=== PATIENT | male | born 1995 | race Caucasian/White ===

== ENCOUNTER 2021-10-25 12:26 | Emergency (ER) | payer SELFPAY ==
--- OUTSIDE RECORDS SUMMARY | 2021-10-25 12:29 | XMS REPORT | Continuity of Care Document ---
:[address] [facility] t Address [address] [place] [address] Care Team Providers Name Role Phone REMY Attending Clinician Unavailable EYAD Attending Clinician Unavailable Christ_Dimas Attending Clinician Unavailable EYAD Admitting Clinician Unavailable Zara Admitting Clinician Unavailable Payers Payer Name Policy Type Policy Number Effective Date Expiration Date S [place] [id number] 2019 00:00:00 [place] Problems Condition Condition Condition Status Onset Resolution Last Treating Co mments Source Name Details Category Date Date Treatment Clinician Date Hypertensi Hypertensi Problem Active 2020-0 [facility] [place] [facility] ve 4-13 da disorder Disorder 00:00: Medica l 00 Group Duodenitis Duodenitis Problem Active 2020-0 [facility] [place] 4-13 da 00:00: Medical 00 Group Urinary Urinary Problem Active 2020-0 [place] T[place] 4-13 da infectious Infectious 00:00: Me dical disease Disease 00 Group Allergies, Adverse Reactions, Alerts This patient has no known allergies or adverse reactions. Social History Smoking Status Start Date Stop Date Source Former Smoker [facility] Medications Ordered Filled Start Stop Current Ordering Indication Dosage Frequency Signature Comments Components Source Medication Medication Date Date Medication? Clinician (SIG) Name Name metoprolol metoprolol No 1 BID metoprolol [place] tartrate 25 tartrate 25 tartrate da mg tablet mg tablet 25 mg Medi bar Take 1 Take 1 tablet Group tablet tablet Take 1 twice a day twice a day tablet by oral by oral twice a route for route for day by 90 days. 90 days. oral route for 90 days. ondansetron ondansetron No ondansetro [place] 4 mg 4 mg n 4 mg da disintegrat disintegrat [facility] ing tablet ing tablet ting Heladio up Take 1 Take 1 tablet tablet tablet Take 1 every 6 every 6 tablet hours by hours by every 6 oral route. oral route. hours by oral route. sucralfate sucralfate No sucralfate [place] 1 gram 1 gram 1 gram da tablet 1 tablet 1 tablet 1 Med ical Tablet Tablet Tablet Group before meal before meal before at bedtime at bedtime meal at bedtime Procedures Procedure Date / Time Performed Performing Clinician Sour evita US, echocardiogram, 2020-01-09 00:00:00 Rhoda van [facility] transthoracic, Group complete, w/ color flow Plan of Care Planned Activity Planned Date Details Comments Source Instructions Evgeny Koenig al Group Encounters Start End Encounter Admission Attending Care Care Encounter Source Date/Time Date/Time Type Type Clinicians Facility Department ID 2020-03-14 2020-03-14 Outpatient REMY, [facility] [id number] [place] 00:00:00 00:00:00 IMAD 397 [facility] i 2020-03-07 2020-03-07 Outpatient [facility] [id number] [place] 00:00:00 00:00:00 380 Method i 2020-02-21 2020-02-29 Inpatient [facility] [id number] [place] 00:00:00 00:00:00 743 Method i 2020-02-21 2020-02-21 Outpatient [facility] [id number] [place] 10:44:00 10:44:00 0526 Medical Group 2020-01-26 2020-01-26 Outpatient Hawkins_M [facility] [id number] [place] 04:20:00 04:20:00 0430 da Medical Group 2020-01-17 2020-01-17 Out[facility] [id number] [place] 06:59:00 06:59:00 0421 da Medical Group 2020-01-17 2020-01-17 Santa [facility] [place] - [id number] [facility] 00:00:00 00:00:00 [facility]: [address] [facility] [address], [place] [address] , Ph. 2020-01-12 2020-01-12 Outpatient [facility]_M [facility] [id number] [place] 07:00:00 07:00:00 0416 Medical Group 2020-01-10 2020-01-10 [place] [facility] [place] - [id number] [place] 00:00:00 00:00:00 [facility]: [address] [facility] [address], [place] [address] , Ph. 2020-01-09 2020-01-09 Outpatient Hawkins_M [facility] [id number] [place] 06:48:00 06:48:00 0413 Medical Group 2020-01-09 2020-01-09 Outpatient Hawkins_M [facility] [id number] [place] 06:48:00 06:48:00 0414 Medical Group 2020-01-09 2020-01-09 Outpatient Hawkins_M [facility] [id number] [place] 06:48:00 06:48:00 0415 Medical Group 2020-01-09 2020-01-09 [place] [facility] [place] - [id number] [place] 00:00:00 00:00:00 [facility]: [address] [facility] [address], [place] [address] , Ph. Results This patient has no known results.
[2021-10-25 15:28] LABS: Absolute Lymphocytes (CBC) 3.2 K/uL (0.7-4.9); Hematocrit 44.2 % (39.6-49.0); Lymphocytes % 25.8 % (15.3-44.8); MPV 9.6 fL (7.6-11.3); RBC Red Blood Cell Count 5.14 M/uL (4.33-5.43)
[2021-10-25 15:31] LABS: Protime INR 1.7
[2021-10-25 15:36] LABS: Bilirubin Direct 0.5 mg/dL (0-0.2); Bilirubin Total 1.5 mg/dL (0.2-1.0); Magnesium 2.4 mg/dL (1.8-2.4); Potassium 4.5 mmol/L (3.5-5.1); Protein, Total 6.1 g/dL (6.4-8.2); Troponin High Sensitivity 19.4 pg/mL (<58.9)
--- NOTE | 2021-10-25 16:19 | RAD REPORT ---
EXAM DESCRIPTION: Alexander Single View10/25/2021 3:23 pm CLINICAL HISTORY: cough COMPARISON: none FINDINGS: The lungs appear clear of acute infiltrate. The heart is moderately to markedly enlarged. Small right pleural effusion
--- NOTE | 2021-10-25 16:19 | RAD REPORT ---
EXAM DESCRIPTION: CT - Chest For Pe Angio - 10/25/2021 4:06 pm CLINICAL HISTORY: cough COMPARISON: October 25, 2021 chest x-ray TECHNIQUE: Dynamically enhanced axial 3 mm thick images of the chest were obtained during administra tion of <100> mL Isovue 370 IV contrast. Coronal and oblique reconstruction images were generated and reviewed. Exam utilizes a protocol for optimal evaluation of pulmonary arterial tree. Maximum intensity projections 3D imaging was utilized All CT scans are performed using dose optimization technique as appropriate and may include automated exposure control or mA/KV adjustment according to patient size. FINDINGS: A pulmonary embolus is not seen. A thoracic aortic aneurysm is not noted. Heart is moderately to markedly enlarged Small right pleural effusion. A pericardial effusion is not seen. A lung consolidation is not present. IMPRESSION: Negative for a pulmonary embolism.
[2021-10-25 16:50] LABS: SARS-COV-2 RT PCR NEGATIVE (NEGATIVE)
--- NOTE | 2021-10-25 17:35 | ER ---
Nurse's Notes [facility] Name: Sabino Simon Age: 26 yrs Sex: Male : 1995 Arrival Date: 10/25/2021 Time: 12:29 Bed 17 Private MD: Diagnosis: Shortness of breath;Weakness;Hypertensive heart disease without heart failure Presentation: 10/25 13:15 Chief complaint: Patient states: that he has been feeling short of breath, tired, ap3 having cold sweats and having a hard time sleeping at night for approx one week. Patient states that he is concerned about the purpling and swelling of his abdomen. Coronavirus screen: Client presents with at least one sign or symptom that may indicate coronavirus-19. Standard/surgical mask placed on the client. Ebola Screen: No symptoms or risks identified at this time. Initial Sepsis Screen: Does the patient meet any 2 criteria? Yes Does the patient have a suspected source of infection? No. Patient's initial sepsis screen is negative. Risk Assessment: Do you want to hurt yourself or someone else? Patient reports no desire to harm self or others. Onset of symptoms was October 18, 2021. 13:15 Method Of Arrival: Ambulatory ap3 13:15 Acuity: RODRIGO 3 ap3 Triage Assessment: 13:19 General: Appears in no apparent distress. Behavior is calm, cooperative. Pain: Denies ap3 pain. Neuro: Level of Consciousness is awake, alert, obeys commands, Oriented to person, place, time. Respiratory: Airway is patent Respiratory effort is even, unlabored. GI: Abdomen is round bruised on left lower quadrant discolored. Historical: - Allergies: 13:17 No Known Allergies; ap3 - Home Meds: 13:17 potassium chloride 20 mEq Oral TbER 1 tab 2 times per day [Active]; lisinopril 5 mg ap3 Oral tab 1 tab once daily [Active]; carvedilol 3.125 mg oral tab 1 tab 2 times per day [Active]; metformin 500 mg Oral tab 1 tab with each meal [Active]; - Immunization history:: Client reports receiving the 2nd dose of the Covid vaccine, Flu vaccine is not up to date. - Social history:: Smoking status: Patient denies any tobacco usage or history of. Screenin:19 Abuse screen: Denies threats or abuse. Nutritional screening: No deficits noted. ap3 Tuberculosis screening: No symptoms or risk factors identified. 15:06 Fall Risk None identified. eo2 Assessment: 15:06 General: Appears in no apparent distress. Behavior is calm, cooperative. Pain: Denies eo2 pain. Neuro: Level of Consciousness is awake, alert, obeys commands, Oriented to person, place, time, Reports weakness "sick" for 1 week, weakness, fatigue, cold sweats. Denies dizziness, headache. Cardiovascular: Denies chest pain, Heart tones S1 S2 Capillary refill < 3 seconds. Respiratory: Reports shortness of breath on exertion Airway is patent Respiratory effort is even, heavy breathing, Respiratory pattern is regular, symmetrical, Breath sounds are clear bilaterally. GI: Abdomen is round Bowel sounds present X 4 quads. Reports nausea, Patient currently denies vomiting, Parent/caregiver reports the patient having pt reports generalized redness to abdomen, reports brusing to left abdomen. 16:07 Reassessment: pt KANA to ct. eo2 Vital Signs: 13:15 BP 149 / 101; Pulse 101; Resp 18; Temp 98.8; Pulse Ox 100% ; Weight 106.59 kg; Height 5 ap3 ft. 6 in. (167.64 cm); 13:54 BP 139 / 98; Pulse 104; Resp 18; Pulse Ox 100% ; ic1 15:00 BP 151 / 93; Pulse 106; Resp 18; Pulse Ox 99% ; Pain 0/10; eo2 16:00 BP 144 / 98; Pulse 100; Resp 20; Pulse Ox 100% ; Pain 0/10; eo2 17:00 BP 151 / 82; Pulse 100; Resp 19; Pulse Ox 100% ; Pain 0/10; eo2 13:15 Body Mass Index 37.93 (106.59 kg, 167.64 cm) ap3 ED Course: 12:29 Patient arrived in ED. ds1 12:56 Martín Rea MD is Attending Physician. kdr 13:17 Triage completed. ap3 13:20 Arm band placed on right wrist. ap3 14:34 Maria D Jolly, MELY is Primary Nurse. eo2 15:06 Patient has correct armband on for positive identification. eo2 15:06 No provider procedures requiring assistance completed. eo2 15:12 Initial lab(s) drawn, by me, sent to lab. EKG done, by ED staff. Inserted saline lock: dh3 20 gauge in right antecubital area, using aseptic technique. Blood collected. 15:23 XRAY Chest (1 view) In Process Unspecified. EDMS 16:06 CT Chest For PE Angio In Process Unspecified. EDMS 17:16 [place] Screen Profile Sent. eo2 18:23 IV discontinued, intact, bleeding controlled, No redness/swelling at site. Pressure jl7 dressing applied. Administered Medications: No medications were administered Outcome: 17:34 Discharge ordered by . kdr 18:23 Discharged to home ambulatory. jl7 18:23 Condition: stable 18:23 Discharge instructions given to patient, family, Instructed on discharge instructions, follow up and referral plans. medication usage, Demonstrated understanding of instructions, follow-up care, medications, Prescriptions given X 1. 18:23 Patient left the ED. jl7 Signatures: Dispatcher [employer] EDWI Martín Rea MD MD kdr Nick, Maria Del Rosario ds1 Torrey Hagan RN RN jl7 Julia Dill 3 Veronika Palacios RN RN ap3 Maria D Jolly RN RN eo2 Rosio Simms RN RN ic1 Corrections: (The following items were deleted from the chart) 15:43 15:06 Neuro: Level of Consciousness is awake, alert, obeys commands, Oriented to eo2 person, place, time, Denies dizziness, headache eo2
--- NOTE | 2021-10-25 17:35 | EDPHYS ---
Physician Documentation [facility] Name: Sabino Simon Age: 26 yrs Sex: Male : 1995 Arrival Date: 10/25/2021 Time: 12:29 Bed 17 Private MD: ED Physician Martín Rea HPI: 10/25 16:05 This 26 yrs old Male presents to ER via Ambulatory with complaints of Fatigue, Abd kdr Bruising. 16:05 For the past week the patient states he is having difficulty breathing has been short kdr of breath and is having cold sweats as well as difficulty to sleeping. At one point they noted that both hands were dusky purplish color. That was transient and has resolved at this time. They also feel that his abdomen is more swollen than usual and that he has had some bruising on his left lateral abdominal wall. Onset: The symptoms/episode began/occurred gradually, 1 week(s) ago. Severity of symptoms: At their worst the symptoms were mild moderate just prior to arrival, in the emergency department the symptoms. The patient has not experienced similar symptoms in the past. The patient has not recently seen a physician. Historical: - Allergies: 13:17 No Known Allergies; ap3 - Home Meds: 13:17 potassium chloride 20 mEq Oral TbER 1 tab 2 times per day [Active]; lisinopril 5 mg ap3 Oral tab 1 tab once daily [Active]; carvedilol 3.125 mg oral tab 1 tab 2 times per day [Active]; metformin 500 mg Oral tab 1 tab with each meal [Active]; - Immunization history:: Client reports receiving the 2nd dose of the Covid vaccine, Flu vaccine is not up to date. - Social history:: Smoking status: Patient denies any tobacco usage or history of. ROS: 16:05 Constitutional: Negative for fever, chills, and weight loss, Eyes: Negative for injury, kdr pain, redness, and discharge, ENT: Negative for injury, pain, and discharge, Neck: Negative for injury, pain, and swelling, Cardiovascular: Negative for chest pain, palpitations, and edema, Back: Negative for injury and pain, : Negative for injury, bleeding, discharge, and swelling, MS/Extremity: Negative for injury and deformity, Skin: Negative for injury, rash, and discoloration, Neuro: Negative for headache, weakness, numbness, tingling, and seizure activity. Psych: Negative for depression, anxiety, suicide ideation, homicidal ideation, and hallucinations, Allergy/Immunology: Negative for hives, rash, and allergies, Endocrine: Negative for neck swelling, polydipsia, polyuria, polyphagia, and marked weight changes, Hematologic/Lymphatic: Negative for swollen nodes, abnormal bleeding, and unusual bruising. 16:05 Respiratory: Positive for cough, with no reported sputum, dyspnea on exertion, shortness of breath, at rest. Negative for hemoptysis, orthopnea, pleurisy, sputum production. 16:05 Abdomen/GI: Positive for nausea, abdominal distension, Negative for vomiting, diarrhea, abdominal cramps, anorexia, dysphagia, hematemesis, black/tarry stool, rectal pain, rectal bleeding, bowel incontinence, flatulence. Exam: 15:12 ECG was reviewed by the Attending Physician. kdr 16:05 Constitutional: This is a well developed, well nourished patient who is awake, alert, kdr and in mild distress. Head/Face: Normocephalic, atraumatic. Eyes: Pupils equal round and reactive to light, extra-ocular motions intact. Lids and lashes normal. Conjunctiva and sclera are non-icteric and not injected. Cornea within normal limits. Periorbital areas with no swelling, redness, or edema. Neck: Trachea midline, no thyromegaly or masses palpated, and no cervical lymphadenopathy. Supple, full range of motion without nuchal rigidity, or vertebral point tenderness. No Meningismus. Chest/axilla: Normal chest wall appearance and motion. Nontender with no deformity. No lesions are appreciated. Cardiovascular: Regular rate and rhythm with a normal S1 and S2. No gallops, murmurs, or rubs. Normal PMI, no JVD. No pulse deficits. Back: No spinal tenderness. No costovertebral tenderness. Full range of motion. Skin: Warm, dry with normal turgor. Normal color with no rashes, no lesions, and no evidence of cellulitis. MS/ Extremity: Pulses equal, no cyanosis. Neurovascular intact. Full, normal range of motion. Neuro: Awake and alert, GCS 15, oriented to person, place, time, and situation. Cranial nerves II-XII grossly intact. Motor strength 5/5 in all extremities. Sensory grossly intact. Cerebellar exam normal. Normal gait. Psych: Awake, alert, with orientation to person, place and time. Behavior, mood, and affect are within normal limits. 16:05 Respiratory: mild respiratory distress is noted, Respirations: labored breathing, that is mild, Breath sounds: no acute changes. Vital Signs: 13:15 BP 149 / 101; Pulse 101; Resp 18; Temp 98.8; Pulse Ox 100% ; Weight 106.59 kg; Height 5 ap3 ft. 6 in. (167.64 cm); 13:54 BP 139 / 98; Pulse 104; Resp 18; Pulse Ox 100% ; ic1 15:00 BP 151 / 93; Pulse 106; Resp 18; Pulse Ox 99% ; Pain 0/10; eo2 16:00 BP 144 / 98; Pulse 100; Resp 20; Pulse Ox 100% ; Pain 0/10; eo2 17:00 BP 151 / 82; Pulse 100; Resp 19; Pulse Ox 100% ; Pain 0/10; eo2 13:15 Body Mass Index 37.93 (106.59 kg, 167.64 cm) ap3 MDM: 16:05 Data reviewed: vital signs, nurses notes, lab test result(s), radiologic studies. kdr Counseling: I had a detailed discussion with the patient and/or guardian regarding: the historical points, exam findings, and any diagnostic results supporting the discharge/admit diagnosis, lab results, radiology results. 17:34 Patient medically screened. [facility] 10/25 14:50 Order name: Basic Metabolic Panel; Complete Time: 15:38 [facility] 10/25 14:50 Order name: CBC with Diff; Complete Time: 15:38 [facility] 10/25 14:50 Order name: LFT's; Complete Time: 15:38 [facility] 10/25 14:50 Order name: Magnesium; Complete Time: 15:38 [facility] 10/25 14:50 Order name: NT PRO-BNP; Complete Time: 15:38 [facility] 10/25 14:50 Order name: PT-INR; Complete Time: 15:38 [facility] 10/25 14:50 Order name: Troponin HS; Complete Time: 15:38 [facility] 10/25 14:50 Order name: XRAY Chest (1 view); Complete Time: 16:42 [facility] 10/25 14:50 Order name: EKG; Complete Time: 14:51 [facility] 10/25 14:52 Order name: COVID-19/FLU A+B (Document "Date of Onset" if Symptomatic); Complete Time: kdr 17:07 10/25 15:26 Order name: D-Dimer; Complete Time: 15:38 [facility] 10/25 15:37 Order name: CT Chest For PE Angio; Complete Time: 16:42 [facility] 10/25 16:43 Order name: [place] Screen Profile [facility] 10/25 14:50 Order name: Cardiac monitoring; Complete Time: 15:43 [facility] 10/25 14:50 Order name: EKG - Nurse/Tech; Complete Time: 15:12 [facility] 10/25 14:50 Order name: IV Saline Lock; Complete Time: 15:12 [facility] 10/25 14:50 Order name: Labs collected and sent; Complete Time: 15:12 [facility] 10/25 14:50 Order name: O2 Per Protocol; Complete Time: 15:43 [facility] 10/25 14:50 Order name: O2 Sat Monitoring; Complete Time: 15:43 kdr EC:12 Rate is 104 beats/min. Rhythm is regular, Sinus tachycardia with No ectopy. QRS [place] is kdr Normal. MI interval is normal. QRS interval is normal. QT interval is normal. Clinical impression: NSR w/ Non-specific ST/T Changes. Administered Medications: No medications were administered Disposition Summary: 10/25/21 17:34 Discharge Ordered Location: Home kdr Problem: an ongoing problem kdr Symptoms: are unchanged kdr Condition: Stable kdr Diagnosis - Shortness of breath kdr - Weakness kdr - Hypertensive heart disease without heart failure kdr Followup: kdr - With: Private Physician - When: 2 - 3 days - Reason: If symptoms return, Further diagnostic work-up, Recheck today's complaints, Continuance of care, Re-evaluation by your physician Discharge Instructions: - Discharge Summary Sheet kdr - Shortness of Breath, Adult, [id number] kdr - Fatigue kdr - Weakness, [id number] kdr - Hypertension, Adult, [id number] kdr - Form - Return To Work jl7 Forms: - Medication Reconciliation Form kdr - Thank You Letter kdr - Work release form jl7 Prescriptions: - albuterol sulfate 90 mcg/actuation Inhalation HFA aerosol inhaler - inhale 2 puff by INHALATION route every 4 hours As needed; 1 canister; Refills: kdr 0, Product Selection Permitted Signatures: Dispatcher [employer] EDMartín Meyer MD MD kdr Veronika Palacios RN RN ap3 Corrections: (The following items were deleted from the chart) 15:26 14:51 D-[email or web address].BRZ ordered. MAGO MERCEDES
[2021-10-25 18:30] VITALS: TEMP 98.8
[2021-10-25 18:34] VITALS: O2SAT 100
[2021-10-25 18:35] VITALS: BP 151/82
== END 2021-10-25 18:23 | disposition home or self-care (01) ==
LOC: ER 12:26
DX: I11.9 Hypertensive heart disease without heart failure (principal); R53.1 Weakness; Z20.822 Contact with and (suspected) exposure to COVID-19
CPT/HCPCS: 0240U; 36415; 71045; 71275; 80048; 80076; 83735; 83880; 84484; 85025; 85379; 85610; 86308; 93005; 99284

== ENCOUNTER 2022-08-30 13:00 | Emergency (ER) | payer SELFPAY ==
--- OUTSIDE RECORDS SUMMARY | 2022-08-30 13:06 | XMS REPORT | Continuity of Care Document ---
:1995 Author Organization [facility] t Address [address] [place] [address] Care Team Providers Name Role Phone Kei VIDAL, [place] Primary Care Physician Jong Luna RN Attending Clinician Unavailable Michelle BARREL PAINTER, Kesha Attending Clinician [phone] Buddy VIDAL, Tan Fontaine Attending Clinician Harvinder Scott MD Attending Clinician Marine Webster MD Attending Clinician [phone] Latrice Bar DO Attending Clinician MD HARVINDER SCOTT Attending Clinician Unavailable PINKY ALBERTO Attending Clinician Unavailable MARGO CASTANO Attending Clinician Unavailable Zara Attending Clinician Unavailable MARINE WEBSTER Admitting Clinician Unavailable MD HARVINDER SCOTT Admitting Clinician Unavailable MARGO CASTANO Admitting Clinician Unavailable Hawkins_M Admitting Clinician Unavailable Payers Payer Name Policy Type Policy Number Effective Date Expiration Date Linda cast[place] [id number] 2019 00:00:00 [place] Problems Condition Condition Condition Status Onset Resolution Last Treating Co mments Source Name Details Category Date Date Treatment Clinician Date Congestive Congestive Disease Active M ethodi heart heart 10-27 st failure failure 00:00: Hospita 00 l Shortness Shortness Disease Active Met hodi of breath of breath 02-28 st 00:00: Hospita 00 l Acute Acute Disease Active [facility] congestive congestive 02-28 st heart heart 00:00: Hospita failure failure 00 l Other Other Disease Active [facility] chest pain chest pain 02-21 st 00:00: Hospita 00 l Heart Heart Disease Active Overview: Method i failure failure 02-[address] 00:00: g of this Hospita 00 note l might be different from the original. Added automatic ally from request for surgery [id number] Hypertensi Hypertensi Problem Active M [place] ve ve 4-13 da disorder Disorder 00:00: Medica l 00 Group Duodenitis Duodenitis Problem Active [facility] [place] 4-13 da 00:00: Medical 00 Group Urinary Urinary Problem Active [place] Tract 4-13 da infectious Infectious 00:00: Me dical disease Disease 00 Group Allergies, Adverse Reactions, Alerts This patient has no known allergies or adverse reactions. Social History Social Habit Start Date Stop Date Quantity Comments Source History [facility] Islam Alcohol Std Drinks Hospit al History [facility] B[facility] Alcohol intake 2021-10-27 2021-10-27 Lifetime Islam 00:00:00 00:00:00 non-drinker Hospital (finding) Cigarettes smoked 2020-02-22 2020-02-[address] current (pack per 00:00:00 00:00:00 Hospita l day) - Reported Tobacco use and 2020-02-22 2020-02-22 Former smokeless Met [facility]ist exposure 00:00:00 00:00:00 tobacco user Hospital History [facility] 2020-02-22 2020-02-22 1 Islam Alcohol Frequency 00:00:00 00:00:00 Hospita l History of tobacco 2020-02-21 User of smokeless Islam use 00:00:00 tobacco Hospital Sex Assigned At [birth year] Islam 00:00:00 00:00:00 Hospital Smoking Status Start Date Stop Date Source Ex-smoker 2020-02-22 00:00:00 2020-02-22 00:00:00 [facility] Medications Ordered Filled Start Stop Current Ordering Indication Dosage Frequency Signature Comments Components Source Medication Medication Date Date Medication? Clinician (SIG) Name Name potassium Yes 20meq QD Take 20 Meth che chloride 2-[address] (K-DUR) 20 18:08: mouth Hospit a MEQ CR 20 daily. l tablet Started by his primary care doctor metFORMIN Yes 500mg QD Take 500 Met hodi (GLUCOPHAGE 2-[address] ) 500 mg 18:03: mouth Hospita tablet 24 daily with l breakfast. carvediloL 2021- No 3.125mg Q.5D Take 3.125 Methodi (COREG) - 02-[address] 3.125 MG 13:24: 00:00 mouth 2 Hospi ta tablet 02 :00 (two) l times a day. potassium 2021- No 20meq Q.5D Take 20 Met hodi chloride 2-04 02-[address] (K-DUR) 20 13:24: 00:00 mouth 2 Hos janice MEQ CR 02 :00 (two) l tablet times a day. digOXIN 2021- No 125ug QD Take 1 Method i (LANOXIN) -12 29-[address] 125 mcg 00:00: 05:59 (125 mcg Hospi ta (0.125 mg) 00 :00 total) by l tablet mouth daily for 30 days. spironolact 2021- No 25mg QD Take 1 Met hodi one - 03-07 tablet (25 st (ALDACTONE) 00:00: 05:59 mg total) Hospita 25 MG 00 :00 by mouth l tablet daily for 30 days. digOXIN 2021- No 125ug QD Take 1 Method i (LANOXIN) 2- 02-[address] 125 mcg 00:00: 00:00 (125 mcg Hospi ta (0.125 mg) 00 :00 total) by l tablet mouth daily for 30 days. spironolact 2021-2021- No 25mg QD Take 1 Met hodi one 11-01-03 tablet (25 st (ALDACTONE) 00:00: 00:00 mg total) Hospita 25 MG 00 :00 by mouth l tablet daily for 30 days. lisinopriL 2021- Yes 10mg Q.5D Take 1 Metho di (PRINIVIL) -03 tablet (10 st 10 mg 00:00: mg total) Hospita tablet 00 by mouth 2 l (two) times a day for 30 days. furosemide 2021-2021- No 40mg Q.5D Take 1 Meth che (Lasix) 40 10-31-06 tablet (40 st mg tablet 00:00: 05:59 mg total) Ho spita 00 :00 by mouth 2 l (two) times a day for 30 days. carvediloL 2021-2021- No 6.25mg Q.5D Take 1 Me thodi (COREG) 10-31- tablet st 6.25 MG 00:00: 05:59 (6.25 mg Hospi ta tablet 00 :00 total) by l mouth 2 (two) times a day for 30 days. carvediloL 2021-0 2021- No 6.25mg Q.5D Take 1 Me thodi (COREG) 10-31- tablet st 6.25 MG 00:00: 00:00 (6.25 mg Hospi ta tablet 00 :00 total) by l mouth 2 (two) times a day for 30 days. lisinopriL 2021-0 2021- No 10mg Q.5D Take 1 Meth che (PRINIVIL) 10-31- tablet (10 st 10 mg 00:00: 00:00 mg total) Hospit a tablet 00 :00 by mouth 2 l (two) times a day for 30 days. furosemide 2021-0 2021- No 40mg Q.5D Take 1 Meth che (Lasix) 40 10-31-03 tablet (40 st mg tablet 00:00: 00:00 mg total) Ho spita 00 :00 by mouth 2 l (two) times a day for 30 days. sucralfate 2021-2021- No 1g Q.25D Take 1 g M ethodi (CARAFATE) 10-[address] 1 gram 11:38: 00:00 (four) Hospita tablet 02 :00 times a l day before meals and nightly. albuterol Yes 2{puff} Q4H Inhale 2 M ethodi (PROAIR - puffs st HFA) 90 00:00: every 4 Hospita mcg/actuati 00 (four) l on inhaler hours as needed for shortness of breath. lisinopriL 2021- No 5mg QD Take 5 mg M ethodi (PRINIVIL) 10-[address] 5 mg tablet 00:00: 00:00 daily. Hos janice 00 :00 l metoprolol metoprolol No 1 BID metoprolol [place] [...] at bedtime at bedtime meal at bedtime Vital Signs Vital Name Observation Time Observation Value Comments Source Systolic blood 2021-10-31 16:58:58 125 mm[Hg] Method [facility] pressure Diastolic blood 2021-10-31 16:58:58 78 mm[Hg] [facility] pressure Heart rate 2021-10-31 16:58:58 102 /min [facility] Body temperature 2021-10-31 16:58:[address] [facility] Respiratory rate 2021-10-31 16:58:58 17 /min [facility] Oxygen saturation in 2021-10-31 16:58:58 95 /min [facility] Arterial blood by Pulse oximetry Body weight 2021-10-31 10:22:48 99.973 kg [facility] BMI 2021-10-31 10:22:48 36.68 kg/m2 [facility] Body height 2021-10-28 00:57:00 165.1 cm [facility] Procedures Procedure Date / Time Performing Clinician Source Performed POC GLUCOSE 2021-10-31 17:00:00 Latrice Bar [facility] POC GLUCOSE 2021-10-31 14:02[facility]00 [facility] B NATRIURETIC PEPTIDE 2021-10-31 11:00:00 Marine Webster [facility] BASIC METABOLIC PANEL 2021-10-31 11:00:00 Marine Webster [facility] HC COMPLETE BLD COUNT 2021-10-31 11:00:00 Marine Webster [facility] W/AUTO DIFF [place] MAGNESIUM LEVEL 2021-10-31 11:00:00 Marine Webster [facility] [place] HEPATIC FUNCTION PANEL 2021-10-31 11:00:00 Marine Webster [facility] ESTIMATED GFR 2021-10-31 11:00:00 Marine Webster [facility] [place] POC GLUCOSE 2021-10-31 03:00:00 Marine Webster [facility] [place] POC GLUCOSE 2021-10-30 23:15:00 Marine Webster [facility] [place] POC GLUCOSE 2021-10-30 19:23:00 Marine Webster [facility] [place] POC GLUCOSE 2021-10-30 13:49:00 Marine Webster [facility] [place] BASIC METABOLIC PANEL 2021-10-30 11:21:00 Marine Webster [facility] HC COMPLETE BLD COUNT 2021-10-30 11:21:00 Marine Webster [facility] W/AUTO DIFF [place] MAGNESIUM LEVEL 2021-10-30 11:21:00 Marine Webster [facility]ital [place] HEPATIC FUNCTION PANEL 2021-10-30 11:21:00 Marine Webster [facility] ESTIMATED GFR 2021-10-30 11:21:00 Marine Webster Ho spital [facility] B NATRIURETIC PEPTIDE 2021-10-30 11:21:00 Marine Webster [facility] POC GLUCOSE 2021-10-30 03:10:00 Marine Webster Ho spital [place] POC GLUCOSE 2021-10-29 23:57:00 Marine Webster spital [place] POC GLUCOSE 2021-10-29 18:44:00 Marine Webster Ho spital [place] POC GLUCOSE 2021-10-29 13:49:00 Marine Webster [facility] ANTI-SPIKE IGG 2021-10-29 11:00:00 Fan Montoya [facility] ANTIBODY TITER Chris HEMOGLOBIN A1C 2021-10-29 11:00:00 Romulo Dozier spital B NATRIURETIC PEPTIDE 2021-10-29 11:00:00 Marine Webster [facility] BASIC METABOLIC PANEL 2021-10-29 11:00:00 Marine Webster [facility] HC COMPLETE BLD COUNT 2021-10-29 11:00:00 Marine Webster [facility] W/AUTO DIFF [facility] MAGNESIUM LEVEL 2021-10-29 11:00:00 Marine Webster [facility] 2021-10-29 11:00:00 Marine Webster [facility] ZZCOVID-19 SEROLOGY 2021-10-29 11:00:00 [facility] PAT[facility]ILL[facility] Chris ESTIMATED GFR 2021-10-29 11:00:00 Marine Webster Ho spital [place] POC GLUCOSE 2021-10-29 05:06:00 Marine Webster spital [place] POC GLUCOSE 2021-10-29 00:04:00 [facility] 2021-10-28 18:10:00 Grayson Websterhammad [facility] P[facility]SE 2021-10-28 14:39:00 Bridget [facility]d [facility] TTE COMPLETE, W CONTRAST, 2021-10-28 14:00:00 [facility] W DOPPLER ([id number]) BLOOD CULTURE, AEROBIC & 2021-10-28 12:19:00 [facility] ANAEROBIC Tan R. HC COMPLETE BLD COUNT 2021-10-28 12:19:00 [facility] W/AUTO DIFF COMPREHENSIVE METABOLIC 2021-10-28 12:19:00 [facility] PANEL ESTIMATED GFR 2021-10-28 12:19:00 [facility] US HEPATIC 2021-10-28 08:53:00 [facility] VENOUS BLOOD GAS 2021-10-28 07:24:00 [facility] BLOOD CULTURE, AEROBIC & 2021-10-28 07:23:00 [facility] ANAEROBIC Tan R. TROPONIN T 2021-10-28 07:23:00 [facility] HEMOGLOBIN A1C 2021-10-28 07:23:00 [facility] LIPID PANEL 2021-10-28 07:23:00 [facility] HEPATITIS ACUTE PANEL 2021-10-28 07:23:00 [facility] POC GLUCOSE 2021-10-28 07:13:00 [facility] STREPTOCOCCUS PNEUMONIAE 2021-10-28 06:27:00 [facility] URINARY ANTIGEN LEGIONELLA URINARY 2021-10-28 06:27:00 [facility] ANTIGEN URINE CULTURE 2021-10-28 06:26:00 [facility] URINALYSIS SCREEN AND 2021-10-28 06:26:00 [facility] MICROSCOPY, WITH REFLEX TO CULTURE TROPONIN T 2021-10-28 06:16:00 [facility] PROCALCITONIN 2021-10-28 06:16:00 [facility] D-DIMER 2021-10-28 06:16:00 [facility] MYCOPLASMA PNEUMONIAE AB, 2021-10-28 06:16:00 [facility] IGM XR CHEST 1 VW PORTABLE 2021-10-28 02:52:53 [facility] Tan Fontaine HC COMPLETE BLD COUNT 2021-10-28 02:24:00 [facility] W/AUTO DIFF Tan Fontaine PROTHROMBIN TIME WITH INR 2021-10-28 02:24:00 [facility] Tan Fontaine PARTIAL THROMBOPLASTIN 2021-10-28 02:24:00 [facility] TIME (PTT) Tan Fontaine COMPREHENSIVE METABOLIC 2021-10-28 02:24:00 [facility] PANEL Tan Fontaine TROPONIN T 2021-10-28 02:24:00 [facility] B NATRIURETIC PEPTIDE 2021-10-28 02:24:00 [facility] Tan Fontaine ESTIMATED GFR 2021-10-28 02:24:00 [facility] spital Tan Fontaine COVID-19 QUALITATIVE 2021-10-28 02:22:00 [facility] RT-PCR Tan Fontaine ECG 12-LEAD 2021-10-28 01:17:17 Halle Mohan [facility] US, echocardiogram, 2020-01-09 00:00:00 Rhoda van Medical transthoracic, complete, Group w/ color flow Plan of Care Planned Activity Planned Date Details Comments Source Future Scheduled Test 2022-08-18 HEPATITIS B VACCINES [facility] 15:33:44 (1 of 3 - 3-dose series) [code = HEPATITIS B VACCINES (1 of 3 - 3-dose series)] Future Scheduled Test 2022-08-18 Pneumococcal Vaccine: [facility] 15:33:44 Pediatrics (0 to 5 Years) and At-Risk Patients (6 to 64 Years) (1 - PCV) [code = Pneumococcal Vaccine: Pediatrics (0 to 5 Years) and At-Risk Patients (6 to 64 Years) (1 - PCV)] Future Scheduled Test 2022-08-18 COVID-19 VACCINE (3 - [facility] 15:33:44 Booster for Pfizer series) [code = COVID-19 VACCINE (3 - Booster for Pfizer series)] Future Scheduled Test 2022-08-18 INFLUENZA VACCINE [facility] 15:33:44 [code = INFLUENZA VACCINE] Instructions [facility] Encounters Start End Encounter Admission Attending Care Care Encounter Source Date/Time Date/Time Type Type Clinicians Facility Department ID 2021-11-13 2021-11-13 Nurse Only Cheryl, 1.2.840.1 [id number] [facility] 00:00:00 00:00:[address] 3.430.2.7 Hospit a .3.443983 l .8 2021-11-06 2021-11-06 [facility] 1.2.840.1 [id number] Methodi 11:00:00 11:53:04 ne justice, [address].1.[address] Kesha 3.430.2.7 Hospit a .3.307931 l .8 2021-11-06 2021-11-06 Travel 1.2.840.1 1.2.534.565 [id number] Methodi 00:00:00 00:00:[address] 3.430.2.7 0.2.7.3.698 Ho spita .3.736272 084.8 l .8 2021-11-06 2021-11-06 Outpatient [facility] [id number] [place] 00:00:00 00:00:[address] 2021-10-27 2021-10-31 Hospital Tan GoodwinLucy 1.2.84 0.1 [id number] [facility] 19:00:00 13:24:00 Encounter Harvinder Scott 59707.1.[address] Marine Webster 3.430.2.7 Hospita Latrice Bar .3.973446 l .8 2021-10-31 2021-10-31 Travel 1.2.840.1 1.2.314.426 [id number] [facility] 00:00:00 00:00:[address] 3.430.2.7 0.2.7.3.698 Ho spita .3.334427 084.8 l .8 2021-10-27 2021-10-31 Inpatient [facility] [id number] [place] 00:00:00 00:00:00 LATRICE 788 Metho serge 2020-03-14 2020-03-14 Outpatient REMY [facility] [id number] [place] 00:00:00 00:00:00 IMAD 397 Method i 2020-03-07 2020-03-07 Outpatient [facility] [id number] [place] 00:00:00 00:00:00 380 Method i 2020-02-21 2020-02-29 Inpatient MARGO CASTANO [facility] [id number] [place] 00:00:00 00:00:00 743 Method i 2020-02-21 2020-02-21 Outpatient Hawkins_M [facility] [id number] [place] 10:44:00 10:44:00 0526 Medical Group 2020-01-26 2020-01-26 Outpatient Hawkins_M [facility] [id number] [place] 04:20:00 04:20:00 0430 da Medical Group 2020-01-17 2020-01-17 Outpatient Hawkins_M MMG [facility] [id number] [place] 06:59:00 06:59:00 0421 da Medical Group 2020-01-17 2020-01-17 Santa [facility] [place] - [id number] M [place] 00:00:00 00:00:00 [facility] BARREL PAINTER: [address], [place] [address] , Ph. 2020-01-12 2020-01-12 [place] [id number] [place] 07:00:00 07:00:00 0416 Medical Group 2020-01-10 2020-01-10 Santa MM [place] - [id number] M [place] 00:00:00 00:00:00 [facility] BARREL PAINTER: [address], [place] [address] , Ph. 2020-01-09 2020-01-09 [place] [id number] [place] 06:48:00 06:48:00 0413 Medical Group 2020-01-09 2020-01-09 Outpatient Hawkins_M MMG [facility] [id number] [place] 06:48:00 06:48:00 0414 Medical Group 2020-01-09 2020-01-09 Outpatient Hawkins_M MMG MMG [id number] [place] 06:48:00 06:48:00 0415 Medical Group 2020-01-09 2020-01-09 Santa MM [place] - [id number] M [place] 00:00:00 00:00:00 [facility] BARREL PAINTER: [address], [place] [address] , Ph. Results Test Description Test Time Test Comments Results Result Comments Source POC glucose 2021-10-31 17:01:36 Test Item Value Reference Range Interpretation Comme nts POC glucose (test code = 159 mg/dL 65-99 H Ope rator Name: Josiah RomeroCasey 15140-1) ID: [id number] hartable: [facility] Notified prescription clerk lenses Interpretation (test code = Abnormal 93294-5) [facility] 12 [id number] 13:18:07 Test Item Value Reference Range Interpretation Comments Ventricular rate (test code = 253) Atrial rate (test code = 255) CT interval (test code = 266) QRSD interval (test code = 260) QT interval (test code = 264) QTC interval (test code = 265) P axis 1 (test code = 267) QRS axis 1 (test code = 268) T wave axis (test code = 270) EKG impression (test code Normal sinus = 273) rhythm-Electronicall y Signed By Jose Barillas MD ([id number]) on 10/28/2021 7:18:06 AM Islam StivenUrine [id number] 06:53:05 Test Item Value Reference Range Interpretation Comments Urine culture (test SEE COMMENT Bacteriu cyril screen code = 2124711) negative. Nela DesirARS-CoV-2 (COVID-19) RNA [Presence] in Respiratory specimen by LEE with probe [id number] 23:57:03 Test Item Value Reference Range Interpretation Comments SARS-CoV-2 (COVID-19) RNA Not detected Not-Detected [Presence] in Respiratory specimen by LEE with probe detection (test code = 96314-4) Whether patient is employed in a healthcare setting (test code = 71837-7) Whether the patient has symptoms related to condition of interest (test code = 08677-9) Patient was hospitalized because of this condition (test code = 29775-4) Whether the patient was admitted to intensive care unit (ICU) for condition of interest (test code = 49378-0) Whether patient resides in a congregate care setting (test code = 40084-7) ELLEN MAHONEY
[2022-08-30 13:47] LABS: Urine Blood Negative (Negative); Urine Glucose Negative (Negative); Urine Protein 2+ (Negative)
--- NOTE | 2022-08-30 14:22 | RAD REPORT ---
EXAM DESCRIPTION: Alexander Cuellar And Matt (2 Views)08/30/2022 1:47 pm CLINICAL HISTORY: Shortness of breath COMPARISON: September 2021 FINDINGS: The lungs appear clear of acute infiltrate. The heart is moderately enlarged IMPRESSION: No acute abnormalities displayed
[2022-08-30 14:34] LABS: Urine Mucus Slight /HPF (None Seen); Urine RBC <5 /HPF (None Seen)
[2022-08-30 14:52] LABS: SARS-COV-2 RT PCR NEGATIVE (NEGATIVE)
--- NOTE | 2022-08-30 14:55 | EDPHYS ---
Physician Documentation [facility] Name: Sabino Simon Age: 27 yrs Sex: Male : 1995 Arrival Date: 08/30/2022 Time: 13:03 Bed DIS4 Private MD: ED Physician Simba Quintero HPI: 08/30 13:26 This 27 yrs old Male presents to ER via Unassigned with complaints of Shortness Of snw Breath, Vomiting. 13:26 The patient has shortness of breath at rest. Onset: The symptoms/episode began/occurred snw 2 week(s) ago, and became worse today, and became persistent. Duration: The symptoms are continuous. The patient's shortness of breath is aggravated by exertion. Associated signs and symptoms: Pertinent positives: vomiting, SOB. Severity of symptoms: in the emergency department the symptoms are unchanged. The patient has experienced similar episodes in the past, chronically, chronically. The patient has not recently seen a physician, and does not have an established primary care provider, just moved to [facility], from [place]. Historical: - Home Meds: 13:30 metoprolol tartrate 25 mg Oral tab 1 tab once daily [Active]; furosemide 40 mg Oral tab snw 1 tab once daily [Active]; lisinopril 5 mg Oral tab 1 tab once daily [Active]; potassium chloride 20 mEq Oral TbER 1 tab 2 times per day [Active]; - PMHx: 13:33 Congestive heart failure; snw - Immunization history:: Adult Immunizations up to date, Client reports receiving the 2nd dose of the Covid vaccine, Last tetanus immunization: up to date. - Social history:: Smoking status: Patient denies any tobacco usage or history of. ROS: 13:34 Eyes: Negative for injury, pain, redness, and discharge, ENT: Negative for injury, snw pain, and discharge, Neck: Negative for injury, pain, and swelling. 13:34 Back: Negative for injury and pain, : Negative for injury, bleeding, discharge, and swelling, MS/Extremity: Negative for injury and deformity, Skin: Negative for injury, rash, and discoloration, Neuro: Negative for headache, weakness, numbness, tingling, and seizure, Psych: Negative for depression, anxiety, suicide ideation, homicidal ideation, and hallucinations. 13:34 Constitutional: Positive for malaise. 13:34 Cardiovascular: Positive for orthopnea, paroxysmal nocturnal dyspnea. 13:34 Respiratory: Positive for shortness of breath, at rest. 13:34 Abdomen/GI: Positive for nausea and vomiting. Exam: 13:36 Head/Face: Normocephalic, atraumatic. Eyes: Pupils equal round and reactive to light, snw extra-ocular motions intact. Lids and lashes normal. Conjunctiva and sclera are non-icteric and not injected. Cornea within normal limits. Periorbital areas with no swelling, redness, or edema. ENT: Nares patent. No nasal discharge, no septal abnormalities noted. Tympanic membranes are normal and external auditory canals are clear. Oropharynx with no redness, swelling, or masses, exudates, or evidence of obstruction, uvula midline. Mucous membranes moist. Neck: Trachea midline, no thyromegaly or masses palpated, and no cervical lymphadenopathy. Supple, full range of motion without nuchal rigidity, or vertebral point tenderness. No Meningismus. Chest/axilla: Normal chest wall appearance and motion. Nontender with no deformity. No lesions are appreciated. 13:36 Abdomen/GI: Soft, non-tender, with normal bowel sounds. No distension or tympany. No guarding or rebound. No evidence of tenderness throughout. Back: No spinal tenderness. No costovertebral tenderness. Full range of motion. Skin: Warm, dry with normal turgor. Normal color with no rashes, no lesions, and no evidence of cellulitis. MS/ Extremity: Pulses equal, no cyanosis. Neurovascular intact. Full, normal range of motion. Neuro: Awake and alert, GCS 15, oriented to person, place, time, and situation. Cranial nerves II-XII grossly intact. Motor strength 5/5 in all extremities. Sensory grossly intact. Cerebellar exam normal. Normal gait. Psych: Awake, alert, with orientation to person, place and time. Behavior, mood, and affect are within normal limits. 13:36 Constitutional: The patient appears alert, awake. 13:36 Cardiovascular: Rate: tachycardic, Rhythm: regular, Pulses: no pulse deficits are appreciated. 13:36 Respiratory: mild respiratory distress is noted, Respirations: shallow respirations, tachypnea. Vital Signs: 13:25 Pulse 101; Resp 24; Pulse Ox 98% ; snw 13:47 BP 147 / 94; Pulse 98; Resp 20; Temp 98; Pulse Ox 99% ; Weight 99.79 kg; Height 5 ft. 6 kb3 in. (167.64 cm); Pain 5/10; 13:47 Body Mass Index 35.51 (99.79 kg, 167.64 cm) kb3 MDM: 13:17 Patient medically screened. snw 14:56 Data reviewed: vital signs, nurses notes. Data interpreted: Pulse oximetry: on room air snw is 99 %. Interpretation: normal. Counseling: I had a detailed discussion with the patient and/or guardian regarding: the historical points, exam findings, and any diagnostic results supporting the discharge/admit diagnosis, the presence of at least one elevated blood pressure reading (>120/80) during this emergency department visit, lab results, radiology results, the need for outpatient follow up, for definitive care. Response to treatment: There is no appreciated change of the patient's symptoms at this time. Special discussion: Based on the patient's history, exam, and Dx evaluation, there is no indication for emergent intervention or inpatient Tx. It is understood by the patient/guardian that if the Sx's persist or worsen they need to return immediately for re-evaluation. I have referred the patient to see his PCP for further evaluation of high blood pressure. Based on the history and exam findings, there is no indication for further emergent testing or inpatient evaluation. I discussed with the patient/guardian the need to see the tax staff accountant for further evaluation of the symptoms. I discussed with the patient/guardian the need to see the primary care provider for further evaluation of the symptoms. 08/30 13:23 Order name: Urine Microscopic Only; Complete Time: 14:34 snw 08/30 13:23 Order name: COVID-19/FLU A+B/RSV; Complete Time: 14:54 snw 08/30 13:23 Order name: Chest Pa And Lat (2 Views) XRAY; Complete Time: 14:34 snw 08/30 13:23 Order name: Urine Dipstick-Ancillary (obtain specimen); Complete Time: 15:00 snw 08/30 13:47 Order name: Urine Dipstick-Ancillary; Complete Time: 14:11 EDMS Administered Medications: 15:06 Drug: Furosemide 20 mg Route: PO; iw 15:25 Follow up: Response: No adverse reaction iw Disposition: 08/31 08:08 Co-signature as Attending Physician, Simba Quintero MD I agree with the assessment and rosalio plan of care. Disposition Summary: 08/30/22 14:54 Discharge Ordered Location: Home snw Condition: Stable snw Diagnosis - Shortness of breath snw Followup: snw - With: Emergency Department - When: As needed - Reason: Worsening of condition Followup: snw - With: Private Physician - When: 2 - 3 days - Reason: Recheck today's complaints, Continuance of care, Re-evaluation by your physician Discharge Instructions: - Discharge Summary Sheet snw - Shortness of Breath, Adult snw - Heart Failure Action Plan snw - Heart Failure and Exercise snw - Heart Failure Eating Plan snw Forms: - Medication Reconciliation Form snw - Thank You Letter snw - Antibiotic Education snw - Prescription Opioid Use snw - Work release form snw Signatures: Dispatcher [employer] Simba Finley MD MD cha Waters, Shelly, PICK PACK WORKER-C PICK PACK WORKER-Csnw Delilah Christensen, RN Deborah Becker RN RN kb3
--- NOTE | 2022-08-30 14:55 | ER ---
Nurse's Notes [facility] Name: Sabino Simon Age: 27 yrs Sex: Male : 1995 Arrival Date: 08/30/2022 Time: 13:03 Bed DIS4 Private MD: Diagnosis: Shortness of breath Presentation: 08/30 13:47 Chief complaint: Patient states: feeling SOB with cough and congestion x2 days. Vomited kb3 x1 episode prior to arrival. Coronavirus screen: Vaccine status: Patient reports receiving the 2nd dose of the covid vaccine. Client denies travel out of the [place] in the last 14 days. Ebola Screen: Patient negative for fever greater than or equal to 101.5 degrees Fahrenheit, and additional compatible Ebola Virus Disease symptoms Patient denies exposure to infectious person. Patient denies travel to an Ebola-affected area in the 21 days before illness onset. Initial Sepsis Screen: Does the patient meet any 2 criteria? No. Patient's initial sepsis screen is negative. Does the patient have a suspected source of infection? No. Patient's initial sepsis screen is negative. Risk Assessment: Do you want to hurt yourself or someone else? Patient reports no desire to harm self or others. Onset of symptoms was August 28, 2022. 13:47 Method Of Arrival: Ambulatory kb3 13:47 Acuity: RODRIGO 3 kb3 Triage Assessment: 13:47 General: Appears in no apparent distress. Behavior is calm, cooperative. Pain: kb3 Complains of pain in chest Pain does not radiate. Respiratory: Reports cough that is productive, pain with cough Onset: The symptoms/episode began/occurred 2 days ago, the patient has mild shortness of breath. Historical: - Home Meds: 13:30 metoprolol tartrate 25 mg Oral tab 1 tab once daily [Active]; furosemide 40 mg Oral tab snw 1 tab once daily [Active]; lisinopril 5 mg Oral tab 1 tab once daily [Active]; potassium chloride 20 mEq Oral TbER 1 tab 2 times per day [Active]; - PMHx: 13:33 Congestive heart failure; snw - Immunization history:: Adult Immunizations up to date, Client reports receiving the 2nd dose of the Covid vaccine, Last tetanus immunization: up to date. - Social history:: Smoking status: Patient denies any tobacco usage or history of. Screenin:00 Abuse screen: Denies threats or abuse. Denies injuries from another. Nutritional iw screening: No deficits noted. Tuberculosis screening: No symptoms or risk factors identified. Fall Risk No IV (0 pts). Assessment: 14:10 General: Appears in no apparent distress. comfortable, Behavior is calm, cooperative. iw Neuro: Level of Consciousness is awake, alert, obeys commands, Oriented to person, place, time, situation, Moves all extremities. Full function. Cardiovascular: Rhythm is regular. Respiratory: Airway is patent Respiratory effort is even, unlabored, Breath sounds are clear bilaterally. Derm: Skin is intact, is healthy with good turgor. Musculoskeletal: Range of motion: intact in all extremities. Vital Signs: 13:25 Pulse 101; Resp 24; Pulse Ox 98% ; snw 13:47 BP 147 / 94; Pulse 98; Resp 20; Temp 98; Pulse Ox 99% ; Weight 99.79 kg; Height 5 ft. 6 kb3 in. (167.64 cm); Pain 5/10; 13:47 Body Mass Index 35.51 (99.79 kg, 167.64 cm) kb3 ED Course: 13:03 Patient arrived in ED. rg4 13:04 [facility] San [facility]C [facility] snw 13:04 Simba Quintero MD is Attending Physician. snw 13:41 COVID-19/FLU A+B/RSV Sent. iw 13:41 Urine Microscopic Only Sent. iw 13:47 Arm band placed on. kb3 13:48 Triage completed. kb3 13:49 Chest Pa And Lat (2 Views) XRAY In Process Unspecified. EDMS 15:00 Delilah Christensen, RN is Primary Nurse. iw 15:05 No provider procedures requiring assistance completed. Patient did not have IV access iw during this emergency room visit. Administered Medications: 15:06 Drug: Furosemide 20 mg Route: PO; iw 15:25 Follow up: Response: No adverse reaction iw Medication: 15:00 VIS not applicable for this client. iw Outcome: 14:54 Discharge ordered by . snw 15:05 Discharged to home ambulatory. iw 15:05 Condition: good 15:05 Discharge instructions given to patient, Instructed on discharge instructions, follow up and referral plans. medication usage, Demonstrated understanding of instructions, follow-up care, medications, Prescriptions given X 1. 15:06 Patient left the ED. iw Signatures: Dispatcher [employer] EDMS Traci San, ANNEMARIE-C YARDAGE CALLER-Csnw Delilah Christensen, RN Cathy Hinds4 Deborah Lanza RN RN kb3
[2022-08-30] MEDS ORDERED: FUROSEMIDE 20 MG TABLET ONE (15:03)
[2022-08-30 15:21] VITALS: BP 147/94; TEMP 98; O2SAT 99
== END 2022-08-30 15:06 | disposition home or self-care (01) ==
LOC: ER 13:00
DX: R06.02 Shortness of breath (principal); R05.9 Cough, unspecified; I50.9 Heart failure, unspecified
CPT/HCPCS: 0241U; 71046; 81003; 81015; 99284

== ENCOUNTER 2022-10-13 15:01 | Inpatient (IN) | payer OTHER, SELFPAY ==
--- OUTSIDE RECORDS SUMMARY | 2022-10-13 15:05 | XMS REPORT | Continuity of Care Document ---
:1995 Author Organization [facility] t Address [address] [place] [address] Care Team Providers Name Role Phone Slade VIDAL, [facility] Primary Care Physician [phone] Cheryl BOONE, Jong Attending Clinician Unavailable Michelle INSURANCE AGENCY MANAGER, Kesha Attending Clinician [phone] Buddy VIDAL, Tan Fontaine Attending Clinician Harvinder Scott MD Attending Clinician Marine Webster MD Attending Clinician [phone] Angy Bar DO Attending Clinician MD HARVINDER SCOTT Attending Clinician Unavailable PINKY ALBERTO Attending Clinician Unavailable MARGO CASTANO Attending Clinician Unavailable Zara Attending Clinician Unavailable MARINE WEBSTER Admitting Clinician Unavailable MD HARVINDER SCOTT Admitting Clinician Unavailable MARGO CASTANO Admitting Clinician Unavailable Hawkins_M Admitting Clinician Unavailable Payers Payer Name Policy Type Policy Number Effective Date Expiration Date Linda cast[place] [id number] 2019 00:00:00 [place] Problems Condition Condition [...] Added automatic ally from request for surgery [id number] Hypertensi Hypertensi Problem Active M atagor ve [...] Date Stop Date Quantity Comments Source History SDMA Alevism Alcohol Std Drinks Hospit al History [facility]ism Alcohol Binge Hospital Alcohol intake 2021-10-27 2021-10-27 Lifetime Alevism 00:00:00 00:00:00 non-drinker Hospital (finding) Tobacco use and 2020-02-22 2020-02-22 Former smokeless Met [facility]od[facility] exposure 00:00:00 00:00:00 tobacco user Hospital Cigarettes smoked 2020-02-22 2020-02-[address] current (pack per 00:00:00 00:00:00 Hospita l day) - Reported History SDOH 2020-02-22 2020-02-22 1 Alevism Alcohol Frequency 00:00:00 00:00:00 Hospita l History of tobacco 2020-02-21 User of smokeless Alevism use 00:00:00 tobacco Hospital Sex Assigned At [birth year] Alevism 00:00:00 00:00:00 Hospital Smoking Status Start Date Stop Date Source Ex-smoker 2020-02-22 00:00:00 2020-02-22 00:00:00 [facility] Medications Ordered Filled Start Stop Current Ordering Indication Dosage Frequency Signature Comments Components Source Medication Medication Date Date Medication? Clinician (SIG) Name Name 1 tab 2021-09 No daily. 2- 00:00: 00 Dose 2021-09 No Unknown 11-19 00:00: 00 potassium Yes 20meq QD Take 20 Meth che chloride 2-[address] (K-DUR) 20 18:08: mouth Hospit a MEQ CR 20 daily. l tablet Started by his primary care doctor potassium Yes 20meq QD Take 20 Meth che chloride 2-[address] (K-DUR) 20 18:08: mouth Hospit a MEQ CR 20 daily. l tablet Started by his primary care doctor potassium Yes 20meq QD Take 20 Meth che chloride 2-[address] (K-DUR) 20 18:08: mouth Hospit a MEQ CR 20 daily. l tablet Started by his primary care doctor potassium Yes 20meq QD Take 20 Meth che chloride 2-[address] (K-DUR) 20 18:08: mouth Hospit a MEQ CR 20 daily. l tablet Started by his primary care doctor metFORMIN Yes 500mg QD Take 500 Met hodi (GLUCOPHAGE 2-[address] ) 500 mg 18:03: mouth Hospita tablet 24 daily with l breakfast. metFORMIN 2021-0 Yes 500mg QD Take 500 Met hodi (GLUCOPHAGE 2-[address] ) 500 mg 18:03: mouth Hospita tablet 24 daily with l breakfast. metFORMIN 2021-0 Yes 500mg QD Take 500 Met hodi (GLUCOPHAGE 2-[address] ) 500 mg 18:03: mouth Hospita tablet 24 daily with l breakfast. metFORMIN 2021-0 Yes 500mg QD Take 500 Met hodi (GLUCOPHAGE 2-[address] ) 500 mg 18:03: mouth Hospita tablet 24 daily with l breakfast. carvediloL 2021- No 3.125mg Q.5D Take 3.125 Methodi (COREG) 2-04 02-[address] 3.125 MG 13:24: 00:00 mouth 2 Hospi ta tablet 02 :00 (two) l times a day. potassium 2021- No 20meq Q.5D Take 20 Met hodi chloride 2-04 02-[address] (K-DUR) 20 13:24: 00:00 mouth 2 Hos janice MEQ CR 02 :00 (two) l tablet times a day. carvediloL 2021- No 3.125mg Q.5D Take 3.125 Methodi (COREG) 2-04 02-[address] 3.125 MG 13:24: 00:00 mouth 2 Hospi ta tablet 02 :00 (two) l times a day. potassium 2021- No 20meq Q.5D Take 20 Met hodi chloride 2-04 02-[address] (K-DUR) 20 13:24: 00:00 mouth 2 Hos janice MEQ CR 02 :00 (two) l tablet times a day. carvediloL 2021- No 3.125mg Q.5D Take 3.125 Methodi (COREG) 2-04 02-[address] 3.125 MG 13:24: 00:00 mouth 2 Hospi ta tablet 02 :00 (two) l times a day. potassium 2021- No 20meq Q.5D Take 20 Met hodi chloride 2-04 02-[address] (K-DUR) 20 13:24: 00:00 mouth 2 Hos janice MEQ CR 02 :00 (two) l tablet times a day. carvediloL 2021- No 3.125mg Q.5D Take 3.125 Methodi (COREG) 2-04 02-[address] 3.125 MG 13:24: [...] QD Take 1 Method i (LANOXIN) 2- tablet st 125 mcg 00:00: 05:59 (125 mcg Hospi ta (0.125 mg) 00 :00 total) by l tablet mouth daily for 30 days. spironolact 2021- No 25mg QD Take 1 Met hodi one 11-01- tablet (25 st (ALDACTONE) 00:00: 05:59 mg total) Hospita 25 MG 00 :00 by mouth l tablet daily for 30 days. digOXIN 2021- No 125ug QD Take 1 Method i (LANOXIN) 11-01- tablet st 125 mcg 00:00: 05:59 (125 mcg Hospi ta (0.125 mg) 00 :00 total) by l tablet mouth daily for 30 days. spironolact No 25mg QD Take 1 Met hodi one 11-01 tablet (25 st (ALDACTONE) 00:00: 05:59 mg total) Hospita 25 MG 00 :00 by mouth l tablet daily for 30 days. digOXIN 2021- No 125ug QD Take 1 Method i (LANOXIN) 11-[address] 125 mcg 00:00: 05:59 (125 mcg Hospi ta (0.125 mg) 00 :00 total) by l tablet mouth daily for 30 days. spironolact 2021- No 25mg QD Take 1 Met hodi one 11-01- tablet (25 st (ALDACTONE) 00:00: 05:59 mg total) Hospita 25 MG 00 :00 by mouth l tablet daily for 30 days. digOXIN 2021- No 125ug QD Take 1 Method i (LANOXIN) 11-01- tablet st 125 mcg 00:00: 05:59 (125 mcg Hospi ta (0.125 mg) 00 :00 total) by l tablet mouth daily for 30 days. spironolact 2021- No 25mg QD Take 1 Met hodi one 2-07 tablet (25 st (ALDACTONE) 00:00: 05:59 mg total) Hospita 25 MG 00 :00 by mouth l tablet daily for 30 days. digOXIN 2021- No 125ug QD Take 1 Method i (LANOXIN) 2-12 28-[address] 125 mcg 00:00: 00:00 (125 mcg Hospi ta (0.125 mg) 00 :00 total) by l tablet mouth daily for 30 days. spironolact 2021- No 25mg QD Take 1 Met hodi one -12 28-03 tablet (25 st (ALDACTONE) 00:00: 00:00 mg total) Hospita 25 MG 00 :00 by mouth l tablet daily for 30 days. digOXIN 2021- No 125ug QD Take 1 Method i (LANOXIN) 11-01- tablet st 125 mcg 00:00: 00:00 (125 mcg Hospi ta (0.125 mg) 00 :00 total) by l tablet mouth daily for 30 days. spironolact 2021- No 25mg QD Take 1 Met hodi one 11-01- tablet (25 st (ALDACTONE) 00:00: 00:00 mg total) Hospita 25 MG 00 :00 by mouth l tablet daily for 30 days. digOXIN 2021- No 125ug QD Take 1 Method i (LANOXIN) 11-01- tablet st 125 mcg 00:00: 00:00 (125 mcg Hospi ta (0.125 mg) 00 :00 total) by l tablet mouth daily for 30 days. spironolact 2021- No 25mg QD Take 1 Met hodi one 11-01- tablet (25 st (ALDACTONE) 00:00: 00:00 mg total) Hospita 25 MG 00 :00 by mouth l tablet daily for 30 days. digOXIN 2021- No 125ug QD Take 1 Method i (LANOXIN) 2- tablet st 125 mcg 00:00: 00:00 (125 mcg Hospi ta (0.125 mg) 00 :00 total) by l tablet mouth daily for 30 days. spironolact 2021- No 25mg QD Take 1 Met hodi one 11-01-03 tablet (25 st (ALDACTONE) 00:00: 00:00 mg total) Hospita 25 MG 00 :00 by mouth l tablet daily for 30 days. lisinopriL 2022-0 Yes 10mg Q.5D Take 1 Metho di (PRINIVIL) 2-03 tablet (10 st 10 mg 00:00: mg total) Hospita tablet 00 by mouth 2 l (two) times a day for 30 days. lisinopriL 2022-0 Yes 10mg Q.5D Take 1 Metho di (PRINIVIL) 2-03 tablet (10 st 10 mg 00:00: mg total) Hospita tablet 00 by mouth 2 l (two) times a day for 30 days. lisinopriL 2022-0 Yes 10mg Q.5D Take 1 Metho di (PRINIVIL) 2-03 tablet (10 st 10 mg 00:00: mg total) Hospita tablet 00 by mouth 2 l (two) times a day for 30 days. lisinopriL 2022-0 Yes 10mg Q.5D Take 1 Metho di (PRINIVIL) 2-03 tablet (10 st 10 mg 00:00: mg total) Hospita tablet 00 by mouth 2 l (two) times a day for 30 days. carvediloL 2022-0 2022- No 6.25mg Q.5D Take 1 Me thodi (COREG) 2-03 03-[address] 6.25 MG 00:00: 05:59 (6.25 mg Hospi ta tablet 00 :00 total) by l mouth 2 (two) times a day for 30 days. furosemide 2022-0 2022- No 40mg Q.5D Take 1 Meth che (Lasix) 40 2- 03-06 tablet (40 st mg tablet 00:00: 05:59 mg total) Ho spita 00 :00 by mouth 2 l (two) times a day for 30 days. carvediloL 2022-0 2022- No 6.25mg Q.5D Take 1 Me thodi (COREG) 2-03 03-[address] 6.25 MG 00:00: 05:59 (6.25 mg Hospi ta tablet 00 :00 total) by l mouth 2 (two) times a day for 30 days. furosemide 2022-0 2022- No 40mg Q.5D Take 1 Meth che (Lasix) 40 2-03 03-06 tablet (40 st mg tablet 00:00: 05:59 mg total) Ho spita 00 :00 by mouth 2 l (two) times a day for 30 days. carvediloL 2021-0 2021- No 6.25mg Q.5D Take 1 Me thodi (COREG) 2-03 03-[address] 6.25 MG 00:00: 05:59 (6.25 mg Hospi ta tablet 00 :00 total) by l mouth 2 (two) times a day for 30 days. furosemide 2021-0 2021- No 40mg Q.5D Take 1 Meth che (Lasix) 40 2- 03-06 tablet (40 st mg tablet 00:00: 05:59 mg total) Ho spita 00 :00 by mouth 2 l (two) times a day for 30 days. furosemide 2021-0 2021- No 40mg Q.5D Take 1 Meth che (Lasix) 40 2- 03-06 tablet (40 st mg tablet 00:00: 05:59 mg total) Ho spita 00 :00 by mouth 2 l (two) times a day for 30 days. carvediloL 2021-0 2021- No 6.25mg Q.5D Take 1 Me thodi (COREG) 2- 03-[address] 6.25 MG 00:00: 05:59 (6.25 mg Hospi ta tablet 00 :00 total) by l mouth 2 (two) times a day for 30 days. carvediloL 2021-0 2021- No 6.25mg Q.5D Take 1 Me thodi (COREG) 2-11 27-[address] 6.25 MG 00:00: 00:00 (6.25 mg Hospi ta tablet 00 :00 total) by l mouth 2 (two) times a day for 30 days. lisinopriL 2021-0 2021- No 10mg Q.5D Take 1 Meth che (PRINIVIL) 2-11 27-03 tablet (10 st 10 mg 00:00: 00:00 mg total) Hospit a tablet 00 :00 by mouth 2 l (two) times a day for 30 days. furosemide 2021-0 2021- No 40mg Q.5D Take 1 Meth che (Lasix) 40 2- 02-03 tablet (40 st mg tablet 00:00: 00:00 mg total) Ho spita 00 :00 by mouth 2 l (two) times a day for 30 days. carvediloL 2021-0 2022- No 6.25mg Q.5D Take 1 Me thodi (COREG) 2- 02-[address] 6.25 MG 00:00: 00:00 (6.25 mg Hospi ta tablet 00 :00 total) by l mouth 2 (two) times a day for 30 days. lisinopriL 2021-0 2022- No 10mg Q.5D Take 1 Meth che (PRINIVIL) 2- 02-03 tablet (10 st 10 mg 00:00: 00:00 mg total) Hospit a tablet 00 :00 by mouth 2 l (two) times a day for 30 days. furosemide 2021-0 2021- No 40mg Q.5D Take 1 Meth che (Lasix) 40 - 02-03 tablet (40 st mg tablet 00:00: 00:00 mg total) Ho spita 00 :00 by mouth 2 l (two) times a day for 30 days. carvediloL 2021-0 2021- No 6.25mg Q.5D Take 1 Me thodi (COREG) 2-11 27-[address] 6.25 MG 00:00: 00:00 (6.25 mg Hospi ta tablet 00 :00 total) by l mouth 2 (two) times a day for 30 days. lisinopriL 2021-0 2- No 10mg Q.5D Take 1 Meth che (PRINIVIL) 2-03 tablet (10 st 10 mg 00:00: 00:00 mg total) Hospit a tablet 00 :00 by mouth 2 l (two) times a day for 30 days. furosemide 2021-0 2- No 40mg Q.5D Take 1 Meth che (Lasix) 40 - 02-03 tablet (40 st mg tablet 00:00: 00:00 mg total) Ho spita 00 :00 by mouth 2 l (two) times a day for 30 days. carvediloL 2021-0 2- No 6.25mg Q.5D Take 1 Me thodi (COREG) 2- 02-[address] 6.25 MG 00:00: 00:00 (6.25 mg Hospi ta tablet 00 :00 total) by l mouth 2 (two) times a day for 30 days. lisinopriL 2-0 2022- No 10mg Q.5D Take 1 Meth che (PRINIVIL) 10-31 tablet (10 st 10 mg 00:00: 00:00 mg total) Hospit a tablet 00 :00 by mouth 2 l (two) times a day for 30 days. furosemide 2021- No 40mg Q.5D Take 1 Meth che (Lasix) 40 10-31 tablet (40 st mg tablet 00:00: 00:00 mg total) Ho spita 00 :00 by mouth 2 l (two) times a day for 30 days. sucralfate 2021-2021- No 1g Q.25D Take 1 g M ethodi (CARAFATE) 10-[address] 1 gram 11:38: 00:00 (four) Hospita tablet 02 :00 times a l day before meals and nightly. sucralfate 2021-0 2- No 1g Q.25D Take 1 g M ethodi (CARAFATE) 10-[address] 1 gram 11:38: 00:00 (four) Hospita tablet 02 :00 times a l day before meals and nightly. sucralfate 2021-0 2021- No 1g Q.25D Take 1 g M ethodi (CARAFATE) 10-[address] 1 gram 11:38: 00:00 (four) Hospita tablet 02 :00 times a l day before meals and nightly. sucralfate 2021-0 2021- No 1g Q.25D Take 1 g M ethodi (CARAFATE) 10-[address] 1 gram 11:38: 00:00 (four) Hospita tablet 02 :00 times a l day before meals and nightly. albuterol Yes 2{puff} Q4H Inhale 2 M ethodi (PROAIR 1-[address] HFA) 90 00:00: every 4 Hospita mcg/actuati 00 (four) l on inhaler hours as needed for shortness of breath. albuterol 0 Yes 2{puff} Q4H Inhale 2 M ethodi (PROAIR 1-[address] HFA) 90 00:00: every 4 Hospita mcg/actuati 00 (four) l on inhaler hours as needed for shortness of breath. albuterol Yes 2{puff} Q4H Inhale 2 M ethodi (PROAIR 1-[address] HFA) 90 00:00: every 4 Hospita mcg/actuati 00 (four) l on inhaler hours as needed for shortness of breath. albuterol Yes 2{puff} Q4H Inhale 2 M ethodi (PROAIR 1-[address] HFA) 90 00:00: every 4 Hospita mcg/actuati 00 (four) l on inhaler hours as needed for shortness of breath. lisinopriL 2022- No 5mg QD Take 5 mg M ethodi (PRINIVIL) 10-[address] 5 mg tablet 00:00: 00:00 daily. Hos janice 00 :00 l lisinopriL 2022- No 5mg QD Take 5 mg M ethodi (PRINIVIL) 10-[address] 5 mg tablet 00:00: 00:00 daily. Hos janice 00 :00 l lisinopriL 2022- No 5mg QD Take 5 mg M ethodi (PRINIVIL) 10-[address] 5 mg tablet 00:00: 00:00 daily. Hos janice 00 :00 l lisinopriL 2021- No 5mg QD Take 5 [...] Source Systolic blood 2021-10-31 16:58:58 125 mm[Hg] [facility] pressure Diastolic blood 2021-10-31 16:58:58 78 mm[Hg] [facility] pressure Heart rate 2021-10-31 16:58:58 102 /min [facility] Body temperature 2021-10-31 16:58:58 36.89 Vandana [facility] Respiratory rate 2021-10-31 16:58:58 17 /min [facility] Oxygen saturation in 2021-10-31 16:58:58 95 /min [facility] Arterial blood by Pulse oximetry Body weight 2021-10-31 10:22:48 99.973 kg [facility] BMI 2021-10-31 10:22:48 36.68 kg/m2 [facility] Body height 2021-10-28 00:57:00 165.1 cm [facility] Procedures Procedure Date / Time Performing Clinician Source Performed POC GLUCOSE 2021-10-31 17:00:00 [facility] POC GLUCOSE 2021-10-31 14:02:00 [place] [facility] B NATRIURETIC PEPTIDE 2021-10-31 11:00:00 Marine Webster [facility] BASIC METABOLIC PANEL 2021-10-31 11:00:00 Marine Webster [facility] HC COMPLETE BLD COUNT 2021-10-31 11:00:00 Marine eWbster [facility] W/AUTO DIFF [facility] MAGNESIUM LEVEL 2021-10-31 11:00:00 Marine Webster [facility] FUN[facility] PANEL 2021-10-31 11:00:00 Marine Webster [facility] ESTIMATED GFR 2021-10-31 11:00:00 Marine Webster kelley [facility] POC GLUCOSE 2021-10-31 03:00:00 Marine Webster Ho spital [facility] POC GLUCOSE 2021-10-30 23:15:00 Marine Webster spital [facility] POC GLUCOSE 2021-10-30 19:23:00 Marine Webster spital [facility] POC GLUCOSE 2021-10-30 13:49:00 Marine Webster spital [facility] B NATRIURETIC PEPTIDE 2021-10-30 11:21:00 Marine Webster [facility] BASIC METABOLIC PANEL 2021-10-30 11:21:00 Marine Webster [facility] HC COMPLETE BLD COUNT 2021-10-30 11:21:00 Marine Webster [facility] W/AUTO DIFF [facility] MAGNESIUM LEVEL 2021-10-30 11:21:00 Marine Webster spital [facility] HEPATIC FUNCTION PANEL 2021-10-30 11:21:00 Marine Webster [facility] ESTIMATED GFR 2021-10-30 11:21:00 Marine Webster spital [facility] POC GLUCOSE 2021-10-30 03:10:00 Marine Webster Ho spital [facility] POC GLUCOSE 2021-10-29 23:57:00 Marine Webster spital [facility] POC GLUCOSE 2021-10-29 18:44:00 Marine Webster spital [facility] POC GLUCOSE 2021-10-29 13:49:00 Marine Webster spital [facility] ZZCOVID-19 ANTI-SPIKE IGG 2021-10-29 11:00:00 Fan Montoya [facility] ANTIBODY TITER Chris HEMOGLOBIN A1C 2021-10-29 11:00:00 Romulo Dozier spital B NATRIURETIC PEPTIDE 2021-10-29 11:00:00 Marine Webster [facility] BASIC METABOLIC PANEL 2021-10-29 11:00:00 Marine Webster [facility] HC COMPLETE BLD COUNT 2021-10-29 11:00:00 Marine Webster [facility] W/AUTO DIFF [facility] MAGNESIUM LEVEL 2021-10-29 11:00:00 Marine Webster Ho spital [facility] HEPATIC FUNCTION PANEL 2021-10-29 11:00:00 Marine Webster [facility] ZZCOVID-19 SEROLOGY 2021-10-29 11:00:00 Fan Montoya [facility] PATIENT SURVEILLANCE Chris ESTIMATED GFR 2021-10-29 11:00:00 Marine Webster Ho spital [facility] POC GLUCOSE 2021-10-29 05:06:00 Marine Webster Ho spital [facility] POC GLUCOSE 2021-10-29 00:04:00 Marine Webster Ho spital [facility] POC GLUCOSE 2021-10-28 18:10:00 Marine Webster Ho spital [facility] POC GLUCOSE 2021-10-28 14:39:00 Marine Webster spital [facility] TTE COMPLETE, W CONTRAST, 2021-10-28 14:00:00 [facility] W DOPPLER ([id number]) BLOOD CULTURE, AEROBIC & 2021-10-28 12:19:00 [facility] ANAEROBIC Tan R. HC COMPLETE BLD COUNT 2021-10-28 12:19:00 [facility] W/AUTO DIFF COMPREHENSIVE METABOLIC 2021-10-28 12:19:00 [facility] PANEL ESTIMATED GFR 2021-10-28 12:19:00 [facility] US HEPATIC 2021-10-28 08:53:00 [facility] VENOUS BLOOD GAS 2021-10-28 07:24:00 [facility] BLOOD CULTURE, AEROBIC & 2021-10-28 07:23:00 [facility] ANAEROBIC Tan R. TROPONIN T 2021-10-28 07:23:00 [facility] HEMOGLOBIN A1C 2021-10-28 07:23:00 [facility] LIPID PANEL 2021-10-28 07:23:00 [facility] ACUTE VIRAL HEPATITIS 2021-10-28 07:23:00 [facility] PANEL (HAV, HBV, HCV) POC GLUCOSE 2021-10-28 07:13:00 [facility] STREPTOCOCCUS PNEUMONIAE 2021-10-28 06:27:00 [facility] URINARY ANTIGEN LEGIONELLA URINARY 2021-10-28 06:27:00 [facility] ANTIGEN URINE CULTURE 2021-10-28 06:26:00 [facility] URINALYSIS SCREEN AND 2021-10-28 06:26:00 [facility] MICROSCOPY, WITH REFLEX TO CULTURE TROPONIN T 2021-10-28 06:16:00 [facility] PROCALCITONIN 2021-10-28 06:16:00 [facility] D-DIMER 2021-10-28 06:16:00 [facility] MYCOPLASMA PNEUMONIAE AB, 2021-10-28 06:16:00 [facility] IGM XR CHEST 1 VW PORTABLE 2021-10-28 02:52:53 [facility] Tan Fontaine HC COMPLETE BLD COUNT 2021-10-28 02:24:00 [facility] W/AUTO DIFF Tan Fontaine PROTHROMBIN TIME WITH INR 2021-10-28 02:24:00 [facility] Tan Fontaine PARTIAL THROMBOPLASTIN 2021-10-28 02:24:00 [facility] TIME (PTT) Tan Fontaine COMPREHENSIVE METABOLIC 2021-10-28 02:24:00 [facility] PANEL Tan Fontaine TROPONIN T 2021-10-28 02:24:00 Harvinder Scott [facility] B NATRIURETIC PEPTIDE 2021-10-28 02:24:00 [facility] Tan Fontaine ESTIMATED GFR 2021-10-28 02:24:00 [facility] spital Tan Fontaine COVID-19 QUALITATIVE 2021-10-28 02:22:00 [facility] RT-PCR Tan Fontaine ECG 12-LEAD 2021-10-28 01:17:[address] [facility] US, echocardiogram, 2020-01-09 00:00:00 Rhoda van [facility] transthoracic, complete, Group w/ color flow Plan of Care Planned Activity Planned Date Details Comments Source Future Scheduled Test 2022-10-13 Pneumococcal Vaccine: [facility] 15:03:58 Pediatrics (0 to 5 Years) and At-Risk Patients (6 to 64 Years) (1 - PCV) [code = Pneumococcal Vaccine: Pediatrics (0 to 5 Years) and At-Risk Patients (6 to 64 Years) (1 - PCV)] Future Scheduled Test 2022-10-13 COVID-19 VACCINE ([address] [place] [address] 15:03:58 Booster for Pfizer series) [code = COVID-19 VACCINE (3 - Booster for Pfizer series)] Future Scheduled Test 2022-10-13 INFLUENZA VACCINE [facility] 15:03:58 [code = INFLUENZA VACCINE] Future Scheduled Test 2022-09-14 Pneumococcal Vaccine: [facility] 09:01:17 Pediatrics (0 to 5 Years) and At-Risk Patients (6 to 64 Years) (1 - PCV) [code = Pneumococcal Vaccine: Pediatrics (0 to 5 Years) and At-Risk Patients (6 to 64 Years) (1 - PCV)] Future Scheduled Test 2022-09-14 COVID-19 VACCINE ([address] [place] [address] 09:01:17 Booster for Pfizer series) [code = COVID-19 VACCINE (3 - Booster for Pfizer series)] Future Scheduled Test 2022-09-14 INFLUENZA VACCINE [facility] 09:01:17 [code = INFLUENZA VACCINE] Future Scheduled Test 2022-09-14 Pneumococcal Vaccine: [facility] 09:01:17 Pediatrics (0 to 5 Years) and At-Risk Patients (6 to 64 Years) (1 - PCV) [code = Pneumococcal Vaccine: Pediatrics (0 to 5 Years) and At-Risk Patients (6 to 64 Years) (1 - PCV)] Future Scheduled Test 2022-09-14 COVID-19 VACCINE ([address] [place] [address] 09:01:17 Booster for Pfizer series) [code = COVID-19 VACCINE (3 - Booster for Pfizer series)] Future Scheduled Test 2022-09-14 INFLUENZA VACCINE [facility] 09:01:17 [code = INFLUENZA VACCINE] Future Scheduled Test 2022-08-18 HEPATITIS B VACCINES [facility] 15:33:44 (1 of 3 - 3-dose series) [code = HEPATITIS B VACCINES (1 of 3 - 3-dose series)] Future Scheduled Test 2022-08-18 Pneumococcal Vaccine: [facility] 15:33:44 Pediatrics (0 to 5 Years) and At-Risk Patients (6 to 64 Years) (1 - PCV) [code = Pneumococcal Vaccine: Pediatrics (0 to 5 Years) and At-Risk Patients (6 to 64 Years) (1 - PCV)] Future Scheduled Test 2022-08-18 COVID-19 VACCINE ([address] [place] [address] 15:33:44 Booster for Pfizer series) [code = COVID-19 VACCINE (3 - Booster for Pfizer series)] Future Scheduled Test 2022-08-18 INFLUENZA VACCINE [facility] 15:33:44 [code = INFLUENZA VACCINE] Goal Plan of Care Note [code = 60106-5] Goal Plan of Care Note [code = 03361-3] Instructions [facility] Encounters Start End Encounter Admission Attending Care Care Encounter Source Date/Time Date/Time Type Type Clinicians Facility Department ID 2022-10-09 2022-10-09 Outpatient [facility] [id number] 08:35:58 08:35:58 [id number] F Emerson 2022-09-18 2022-09-18 Outpatient [id number] 00:00:00 00:00:00 Visit [id number] 2022-09-17 2022-09-17 Outpatient [facility] [id number] 13:08:44 13:08:44 [id number] F Emerson 2021-11-13 2021-11-13 Nurse Only Creamer, 1.2.840.1 [id number] Methodi 00:00:00 00:00:[id number] 3.430.2.7 Hospit a .3.679998 l .8 2021-11-13 2021-11-13 Nurse Only Creamer, 1.2.840.1 [id number] Methodi 00:00:00 00:00:[address] 3.430.2.7 Hospit a .3.615172 l .8 2021-11-06 2021-11-06 [facility] [place] 1.2.840.1 [id number] Methodi 11:00:00 11:53:04 ne aguilaana, 47329.1.[address] Kesha 3.430.2.7 Hospit a .3.514408 l .8 2021-11-06 2021-11-06 [facility] [place] 1.2.840.1 [id number] Methodi 11:00:00 11:53:04 ne justice, 59261.1.[address] [place]ha 3.430.2.7 Hospit a .3.826153 l .8 2021-11-06 2021-11-06 Travel 1.2.840.1 1.2.430.571 [id number] Methodi 00:00:00 00:00:[address] 3.430.2.7 0.2.7.3.698 Ho spita .3.187461 084.8 l .8 2021-11-06 2021-11-06 Travel 1.2.840.1 1.2.879.031 [id number] Methodi 00:00:00 00:00:[address] 3.430.2.7 0.2.7.3.698 Ho spita .3.917423 084.8 l .8 2021-10-27 2021-10-31 [facility].1 [id number] Methodi 19:00:00 13:24:00 Encounter Harvinder Scott 24990.1.1 788 [facility] 3.430.2.7 Hospita Dipika DavidAshley Resendiz .3.763261 l .8 2021-10-27 2021-10-31 [facility]1 [id number] Methodi 19:00:00 13:24:00 Encounter Harvinder Scott 37980.1.1 788 [facility] .3.583996 l .8 2021-10-31 2021-10-31 Travel 1.2.840.1 1.2.734.119 [id number] Methodi 00:00:00 00:00:[address] 3.430.2.7 0.2.7.3.698 Ho spita .3.572334 084.8 l .8 2021-10-31 2021-10-31 Travel 1.2.840.1 1.2.554.053 1543 [id number] Methodi 00:00:00 00:00:[address] 3.430.2.7 0.2.7.3.698 Ho spita .3.209685 084.8 l .8 2020-03-14 2020-03-14 Outpatient REMY [facility] [id number] Melissa 00:00:00 00:00:00 IM[address] 2020-03-07 2020-03-07 Outpatient [facility] [id number] Melissa 00:00:00 00:00:[address] 2020-02-21 2020-02-29 Inpatient [facility] [id number] Melissa 00:00:00 00:00:[address] 2020-02-21 2020-02-21 Outpatient [facility] [id number] [place] 10:44:00 10:44:00 [facility] 2020-01-26 2020-01-26 Outpatient [facility]G [id number] [place] 04:20:00 04:20:00 [facility] 2020-01-17 2020-01-17 Outpatient [facility] [id number] [place] 06:59:00 06:59:00 [facility] 2020-01-17 2020-01-17 [facility] [place] - [id number] M at[place] 00:00:00 00:00:00 Ct Singh, Medical Medical INSURANCE AGENCY MANAGER: [address], [place] [address] , Ph. 2020-01-12 2020-01-12 Outpatient [facility]G 59719 [place] 07:00:00 07:00:00 0416 [facility] 2020-01-10 2020-01-10 [facility] [place] - [id number] M [facility] 00:00:00 00:00:00 Ct Singh Medical Medical INSURANCE AGENCY MANAGER: [address], [place] [address] , Ph. 2020-01-09 2020-01-09 Outpatient [facility]G [id number] [place] 06:48:00 06:48:00 0413 [facility] 2020-01-09 2020-01-09 Outpatient [facility] MMG [id number] [place] 06:48:00 06:48:00 0414 [facility] 2020-01-09 2020-01-09 Outpatient [facility] MMG [id number] [place] 06:48:00 06:48:00 0415 [facility] 2020-01-09 2020-01-09 [facility] [place] - [id number] M at[place] 00:00:00 00:00:00 Ct Singh, Medical Medical INSURANCE AGENCY MANAGER: [address], [place] [address] , Ph. Results Test Description Test Time Test Comments Results Result Comments Source POC glucose 2021-10-31 17:01:36 Test Item Value Reference Range Interpretation Comme nts POC glucose (test code = 159 mg/dL 65-99 H Ope rator Name: Josiah Sutherland [id number]) ID: [id number] hartable: TM Notified tire inspector Interpretation (test code = Abnormal 06473-2) [facility]2022-02-03 17:01:36 Test Item Value Reference Range Interpretation Comments POC glucose (test code = 159 mg/dL 65-99 H Ope rator Name: [id number]) Josiah Sutherland ID: [id number] able: TMH Notified tire inspector Interpretation (test Abnormal code = 55876-3) [facility]2022-02-03 17:01:36 Test Item Value Reference Range Interpretation Comments POC glucose (test code = 159 mg/dL 65-99 H Ope rator Name: [id number]) Josiah Sutherland ID: [id number] able: TMH Notified tire inspector Interpretation (test Abnormal code = 78896-6) [facility]2022-02-03 17:01:36 Test Item Value Reference Range Interpretation Comments POC glucose (test code = 159 mg/dL 65-99 H Ope rator Name: [id number]) Josiah Sutherland ID: [id number] able: TM Notified tire inspector Interpretation (test Abnormal code = 06618-2) [facility] [id number] 13:18:07 Test Item Value Reference Range Interpretation Comments Ventricular rate (test code = 253) Atrial rate (test code = 255) OH interval (test code = 266) QRSD interval [...] Barillas MD ([id number]) on 10/28/2021 7:18:[address]2022-01-31 13:18:07 Test Item Value Reference Range Interpretation Comments Ventricular rate (test code = 253) Atrial rate (test code = 255) OH interval (test code = 266) QRSD interval (test code = 260) QT interval (test code = 264) QTC interval (test code = 265) P axis 1 (test code = 267) QRS axis 1 (test code = 268) T wave axis (test code = 270) EKG impression (test code Normal sinus = 273) rhythm-Electronicall y Signed By Joes Barillas MD ([id number]) on 10/28/2021 7:18:[address]2022-01-31 13:18:07 Test Item Value Reference Range Interpretation Comments Ventricular rate (test code = 253) Atrial rate (test code = 255) OH interval (test code = 266) QRSD interval [...] Barillas MD ([id number]) on 10/28/2021 7:18:[address]2022-01-31 13:18:07 Test Item Value Reference Range Interpretation Comments Ventricular rate (test code = 253) Atrial rate (test code = 255) OH interval (test code = 266) QRSD interval [...] Barillas MD ([id number]) on 10/28/2021 7:18:06 AM [facility]2022-01-31 06:53:05 Test Item Value Reference Range Interpretation Comments Urine culture (test SEE COMMENT Bacteriu cyril screen code = 3961582) negative. [facility] [id number] 06:53:05 Test Item Value Reference Range Interpretation Comments Urine culture (test SEE COMMENT Bacteriu cyril screen code = 9205520) negative. [facility] [id number] 06:53:05 Test Item Value Reference Range Interpretation Comments Urine culture (test SEE COMMENT Bacteriu cyril screen code = 0644022) negative. [facility] [id number] 06:53:05 Test Item Value Reference Range Interpretation Comments Urine culture (test SEE COMMENT Bacteriu cyril screen code = 9411876) negative. [facility] RNA [Presence] in Respiratory specimen by LEE with probe [id number] 23:57:03 Test Item Value Reference Range Interpretation Comments SARS-CoV-2 (COVID-19) RNA Not detected Not-Detected [Presence] in Respiratory specimen by LEE with probe detection (test code = 77970-3) Whether patient is employed in a healthcare setting (test code = 18594-4) Whether the patient has symptoms related to condition of interest (test code = 07013-2) Patient was hospitalized because of this condition (test code = 53636-4) Whether the patient was admitted to intensive care unit (ICU) for condition of interest (test code = 18600-2) Whether patient resides in a congregate care setting (test code = 01932-6) ELLEN MAHONEY
[2022-10-13] MEDS ORDERED: ONDANSETRON 4 MG/2 ML VIAL ONE (15:35)
[2022-10-13 15:51] LABS: Absolute Lymphocytes (CBC) 3.3 K/uL (0.7-4.9); Hematocrit 47.6 % (39.6-49.0); MCV 82.6 fL (80-100); RBC Red Blood Cell Count 5.76 M/uL (4.33-5.43)
[2022-10-13 15:53] LABS: Protime INR 1.55
[2022-10-13 15:57] LABS: Magnesium 2.1 mg/dL (1.6-2.4); Potassium 3.8 mmol/L (3.5-5.1); Troponin High Sensitivity 37.2 pg/mL (<58.9)
--- NOTE | 2022-10-13 16:06 | RAD REPORT ---
EXAM DESCRIPTION: RAD - Chest Single View - 10/13/2022 3:59 pm CLINICAL HISTORY: Chest pain Chest pain. COMPARISON: Chest Pa And Lat (2 Views) dated 08/30/2022; Chest Single View dated 10/25/2021 FINDINGS: Portable technique limits examination quality. The lungs are grossly clear. Cardiac silhouette is prominent for age. No displaced fractures. IMPRESSION: Cardiac silhouette is prominent for age, recommend followup echocardiogram.
[2022-10-13] MEDS ORDERED: FUROSEMIDE 20 MG/ 2ML VIAL ONE (16:41)
[2022-10-13] MEDS ORDERED: ASPIRIN 81 MG CHEWABLE TABLET ONE (16:41)
--- NOTE | 2022-10-13 17:10 | EDPHYS ---
Physician Documentation [facility] Name: Sabino Simon Age: 27 yrs Sex: Male : 1995 Arrival Date: 10/13/2022 Time: 15:12 Bed 17 Private MD: ED Physician Yonis Buchanan HPI: 10/13 15:20 This 27 yrs old Male presents to ER via EMS with complaints of Shortness Of Breath. cp 15:20 The patient has shortness of breath at rest. cp 15:20 Onset: The symptoms/episode began/occurred 2 day(s) ago. cp 15:20 Duration: The symptoms are continuous, and are steadily getting worse. The patient's cp shortness of breath is aggravated by light activity. Associated signs and symptoms: Pertinent positives: chest pain, Pertinent negatives: dizziness, fever, hemoptysis. Severity of symptoms: in the emergency department the symptoms are unchanged despite EMS interventions. Historical: - Allergies: 15:20 No Known Allergies; aa5 - Home Meds: 15:20 furosemide 40 mg Oral tab 1 tab once daily [Active]; metoprolol tartrate 25 mg Oral tab aa5 1 tab once daily [Active]; 18:18 lisinopril 5 mg Oral tab 1 tab once daily [Active]; potassium chloride 20 mEq Oral TbER db 1 tab 2 times per day [Active]; - PMHx: 15:20 Congestive heart failure; Hypertensive disorder; Depressive disorder; aa5 - Immunization history:: Adult Immunizations unknown. - Social history:: Smoking status: Patient denies any tobacco usage or history of. ROS: 15:25 Constitutional: Negative for body aches, chills, fever, poor PO intake. cp 15:25 Eyes: Negative for injury, pain, redness, and discharge. cp 15:25 ENT: Negative for drainage from ear(s), ear pain, sore throat, difficulty swallowing, difficulty handling secretions. 15:25 Cardiovascular: Positive for chest pain, Negative for edema, palpitations. 15:25 Respiratory: Positive for shortness of breath, at rest. Negative for wheezing. 15:25 Abdomen/GI: Negative for abdominal pain, vomiting, diarrhea, constipation. Exam: 15:30 Constitutional: The patient appears in no acute distress, alert, awake, cp non-diaphoretic, non-toxic, well developed, well nourished, uncomfortable. 15:30 Head/Face: Normocephalic, atraumatic. cp 15:30 Eyes: Periorbital structures: appear normal, Conjunctiva: normal, no exudate, no injection, Sclera: no appreciated abnormality, Lids and lashes: appear normal, bilaterally. 15:30 ENT: External ear(s): are unremarkable, Nose: is normal, Mouth: Lips: moist, Oral mucosa: pink and intact, moist, Posterior pharynx: Airway: no evidence of obstruction, patent, Tonsils: are normal in appearance, swelling, is not appreciated, erythema, is not appreciated, exudate, is not appreciated. 15:30 Neck: ROM/movement: is normal, is supple, without pain, no range of motions limitations, no meningismus. 15:30 Chest/axilla: Inspection: normal, Palpation: is normal, no crepitus, no tenderness. 15:30 Cardiovascular: Rate: normal, Rhythm: regular, Edema: ankle edema, that is very mild, JVD: is not appreciated. 15:30 Respiratory: the patient does not display signs of respiratory distress, Respirations: labored breathing, that is mild, Breath sounds: bronchial sounds, that are mild, are heard diffusely, stridor, is not appreciated, wheezing: is not appreciated. 15:30 Abdomen/GI: Inspection: abdomen appears normal, Palpation: abdomen is soft and non-tender, in all quadrants. 15:30 Back: pain, is absent, ROM is normal. 15:30 Skin: no rash present. 15:30 Neuro: Orientation: to person, place \T\ time. Mentation: is normal, Motor: moves all fours, strength is normal, Sensation: is normal. 15:45 ECG was reviewed by the Attending Physician. cp Vital Signs: 14:56 BP 139 / 95; Pulse 98; Resp 16; Pulse Ox 98% on R/A; db 15:20 BP 152 / 108; Pulse 97; Resp 19 S; Temp 98.0(TE); Pulse Ox 98% on R/A; Weight 99.79 kg aa5 (R); Height 5 ft. 6 in. (167.64 cm) (R); 16:30 BP 144 / 99; Pulse 100; Resp 24; Pulse Ox 99% on R/A; db 17:30 BP 118 / 84; Pulse 99; Resp 18; Pulse Ox 99% on R/A; db 15:20 Body Mass Index 35.51 (99.79 kg, 167.64 cm) aa5 Karon Coma Score: 17:59 Eye Response: spontaneous(4). Verbal Response: oriented(5). Motor Response: obeys db commands(6). Total: 15. MDM: 15:13 Patient medically screened. [facility] 17:25 Data reviewed: vital signs, nurses notes, lab test result(s), EKG, radiologic studies, cp plain films, and as a result, I will admit patient. 17:25 Management of patient was discussed with the following: hospitalist, discussed cp admission. I considered the following discharge prescriptions or medication management in the emergency department Medications were administered in the Emergency Department. See MAR. Independent interpretation of the following test(s) in the Emergency Department EKG: See my EKG interpretation above X-Ray: My interpretation is chest xray shows pulmonary edema. Care significantly affected by the following chronic conditions: Hypertension, Congestive Heart Failure. Counseling: I had a detailed discussion with the patient and/or guardian regarding: the historical points, exam findings, and any diagnostic results supporting the discharge/admit diagnosis, lab results, radiology results, the need for further work-up and treatment in the hospital. 10/13 15:17 Order name: Basic Metabolic Panel; Complete Time: 15:58 cp 10/13 15:58 Interpretation: Normal except: GLUC 178. cp 10/13 15:17 Order name: CBC with Diff; Complete Time: 15:58 cp 10/13 15:58 Interpretation: Normal except: RBC 5.76; MCH 26.7. cp 10/13 15:17 Order name: Magnesium; Complete Time: 15:58 cp 10/13 15:17 Order name: NT PRO-BNP; Complete Time: 15:58 cp 10/13 15:58 Interpretation: Abnormal: NT PRO-BNP 2797. cp 10/13 15:17 Order name: PT-INR; Complete Time: 15:58 cp 10/13 17:22 Interpretation: Reviewed. cp 10/13 15:17 Order name: Troponin HS; Complete Time: 15:58 cp 10/13 15:58 Interpretation: Troponin HS 37.2. cp 10/13 16:00 Order name: UDS; Complete Time: 17:56 cp 10/13 16:00 Order name: D-Dimer; Complete Time: 17:03 cp 10/13 16:00 Order name: LAB Add On 10/13 17:25 Order name: Urine Dipstick-Ancillary; Complete Time: 17:56 EDIA 10/13 17:32 Order name: HIV AG/AB, 4th Gen W/ Reflex EDIA 10/13 17:34 Order name: SARS-COV-2 Antigen Rapid bd 10/13 17:36 Order name: T4 Free EDIA 10/13 17:36 Order name: Thyroid Stimulating Hormone EDIA 10/13 15:17 Order name: XRAY Chest (1 view); Complete Time: 16:20 cp 10/13 17:23 Order name: CT Chest For PE Angio cp 10/13 17:36 Order name: Urinalysis EDIA 10/13 17:36 Order name: Basic Metabolic Panel EDIA 10/13 17:36 Order name: Basic Metabolic Panel EDIA 10/13 17:36 Order name: CBC with Automated Diff EDIA 10/13 17:36 Order name: CBC with Automated Diff EDIA 10/13 17:36 Order name: NT PRO-BNP EDIA 10/13 17:36 Order name: NT PRO-BNP EDIA 10/13 17:38 Order name: Troponin High Sensitivity EDIA 10/13 17:38 Order name: Troponin High Sensitivity EDIA 10/13 17:38 Order name: Troponin High Sensitivity EDIA 10/13 18:56 Order name: CT EDIA 10/13 15:17 Order name: EKG; Complete Time: 15:18 cp 10/13 15:17 Order name: Cardiac monitoring; Complete Time: 15:41 cp 10/13 15:17 Order name: EKG - Nurse/Tech; Complete Time: 15:41 cp 10/13 15:17 Order name: IV Saline Lock; Complete Time: 15:41 cp 10/13 15:17 Order name: Labs collected and sent; Complete Time: 15:41 cp 10/13 15:17 Order name: O2 Per Protocol; Complete Time: 15:41 cp 10/13 15:17 Order name: O2 Sat Monitoring; Complete Time: 15:41 cp 10/13 16:00 Order name: Urine Dipstick-Ancillary (obtain specimen); Complete Time: 17:40 cp 10/13 17:36 Order name: Heart Healthy EDMS EC:45 Rate is 154 beats/min. Rhythm is regular. ME interval is normal. QRS interval is cp normal. QT interval is prolonged at 408 msec. T waves are Inverted in leads I, aVL. Interpreted by me. Reviewed by me. Administered Medications: 15:41 Drug: Zofran (Ondansetron) 4 mg Route: IVP; Site: left antecubital; db 16:02 Follow up: Response: No adverse reaction db 16:00 CANCELLED (Physician Discretion): Nitroglycerin 0.4 mg Sublingual once cp 16:56 Drug: Aspirin Chewable Tablet 324 mg Route: PO; db 17:40 Follow up: Response: No adverse reaction db 16:56 Drug: Lasix (furosemide) 20 mg Route: IVP; Site: left antecubital; db 17:41 Follow up: Response: No adverse reaction db Disposition: 10/14 08:10 Co-signature as Attending Physician, Yonis Buchanan MD I reviewed the patient's care rt provided by the Advanced Practice Provider and agree with the diagnosis and treatment plan. Disposition Summary: 10/13/22 17:09 Hospitalization Ordered Hospitalization Status: Observation cp Provider: Ki Aguilar cp Location: Telemetry/MedSurg (observation) cp Condition: Stable cp Problem: chronic cp Symptoms: have improved cp Bed/Room Type: Standard Room Assignment: 428(10/13/22 18:23) dw Diagnosis - Unspecified combined systolic (congestive) and diastolic (congestive) heart failure cp - Dyspnea cp - Chest pain, unspecified cp Forms: - Medication Reconciliation Form cp - SBAR form cp Signatures: Dispatcher [facility] Daysi Huff RN RN dw Calderon, Audri RN RN aa5 Marques Cordova, TRAUMA DIRECTOR-C TRAUMA DIRECTOR-Cla1 Simba Parham PA PA cp Anu Moore FNP TRAUMA DIRECTOR [id number] Eloisa Arguelles RN RN Yonis Fu MD MD rt Corrections: (The following items were deleted from the chart) 10/13 16:00 15:47 Nitroglycerin 0.4 mg Sublingual once ordered. cp cp 18:23 17:09 cp dw 10/14 18:59 10/12 15:20 This 27 yrs old Male presents to ER via EMS with complaints of Shortness Of cp Breath. cp 10/14 18:59 10/12 15:20 The patient has shortness of breath at rest, cp cp
--- NOTE | 2022-10-13 17:10 | ER ---
Nurse's Notes [facility] Name: Sabino Simon Age: 27 yrs Sex: Male : 1995 Arrival Date: 10/13/2022 Time: 15:12 Bed 17 Private MD: Diagnosis: Unspecified combined systolic (congestive) and diastolic (congestive) heart failure;Dyspnea;Chest pain, unspecified Presentation: 10/13 15:20 Chief complaint: Parent and/or Guardian states: SOB and chest pressure that began 2 aa5 days ago. Coronavirus screen: shortness of breath. Ebola Screen: Patient denies travel to an Ebola-affected area in the 21 days before illness onset. Initial Sepsis Screen: Does the patient meet any 2 criteria? No. Patient's initial sepsis screen is negative. Does the patient have a suspected source of infection? No. Patient's initial sepsis screen is negative. Risk Assessment: Do you want to hurt yourself or someone else? Patient reports no desire to harm self or others. Onset of symptoms was September 2022. 15:20 Acuity: RODRIGO 3 aa5 15:20 Method Of Arrival: EMS: [facility] aa5 Triage Assessment: 16:00 General: Appears in no apparent distress. Behavior is calm, cooperative. Pain: db Complains of pain in chest. Cardiovascular: Reports chest pain, shortness of breath. Respiratory: Reports shortness of breath at rest Airway is patent Respiratory effort is even, unlabored, Respiratory pattern is regular, symmetrical, Breath sounds are clear Onset: The symptoms/episode began/occurred suddenly, the patient has mild shortness of breath. Historical: - Allergies: 15:20 No Known Allergies; aa5 - Home Meds: 15:20 furosemide 40 mg Oral tab 1 tab once daily [Active]; metoprolol tartrate 25 mg Oral tab aa5 1 tab once daily [Active]; 18:18 lisinopril 5 mg Oral tab 1 tab once daily [Active]; potassium chloride 20 mEq Oral TbER db 1 tab 2 times per day [Active]; - PMHx: 15:20 Congestive heart failure; Hypertensive disorder; Depressive disorder; aa5 - Immunization history:: Adult Immunizations unknown. - Social history:: Smoking status: Patient denies any tobacco usage or history of. Screenin:56 [facility] ED Fall Risk Assessment (Adult) History of falling in the last 3 months, db including since admission No falls in past 3 months (0 pts) Confusion or Disorientation No (0 pts) Intoxicated or Sedated No (0 pts) Impaired Gait No (0 pts) Mobility Assist Device Used No (0 pt) Altered Elimination No (0 pt) Score/Fall Risk Level 0 - 2 = Low Risk Oriented to surroundings, Maintained a safe environment. Abuse screen: Denies threats or abuse. Denies injuries from another. Nutritional screening: No deficits noted. Tuberculosis screening: No symptoms or risk factors identified. Assessment: 15:46 Reassessment: Patient appears in no apparent distress at this time. Patient and/or db family updated on plan of care and expected duration. Pain level reassessed. Patient is alert, oriented x 3, equal unlabored respirations, skin warm/dry/pink. General: Appears in no apparent distress. comfortable, Behavior is calm, cooperative, appropriate for age, quiet. Pain: Complains of pain in chest. Neuro: Level of Consciousness is awake, alert, obeys commands, Oriented to person, place, time, situation, Speech is normal. Cardiovascular: Reports chest pain, shortness of breath, Rhythm is sinus rhythm. Respiratory: Airway is patent Respiratory effort is even, unlabored, Respiratory pattern is regular, symmetrical, Breath sounds are clear bilaterally. GI: No deficits noted. No signs and/or symptoms were reported involving the gastrointestinal system. : No deficits noted. No signs and/or symptoms were reported regarding the genitourinary system. 16:30 Reassessment: Patient appears in no apparent distress at this time. No changes from db previously documented assessment. Patient and/or family updated on plan of care and expected duration. Pain level reassessed. Patient is alert, oriented x 3, equal unlabored respirations, skin warm/dry/pink. 17:30 Reassessment: Patient appears in no apparent distress at this time. Patient and/or db family updated on plan of care and expected duration. Pain level reassessed. Patient is alert, oriented x 3, equal unlabored respirations, skin warm/dry/pink. Patient states feeling better. 18:19 Reassessment: Patient appears in no apparent distress at this time. Patient and/or db family updated on plan of care and expected duration. Pain level reassessed. Patient is alert, oriented x 3, equal unlabored respirations, skin warm/dry/pink. DR. AGUILAR AT PATIENT BEDSIDE. Respiratory: Reports shortness of breath at rest 18:43 Reassessment: Patient appears in no apparent distress at this time. No changes from db previously documented assessment. Patient and/or family updated on plan of care and expected duration. Pain level reassessed. Patient is alert, oriented x 3, equal unlabored respirations, skin warm/dry/pink. PATIENT RETURNED FROM CT. Vital Signs: 14:56 BP 139 / 95; Pulse 98; Resp 16; Pulse Ox 98% on R/A; db 15:20 BP 152 / 108; Pulse 97; Resp 19 S; Temp 98.0(TE); Pulse Ox 98% on R/A; Weight 99.79 kg aa5 (R); Height 5 ft. 6 in. (167.64 cm) (R); 16:30 BP 144 / 99; Pulse 100; Resp 24; Pulse Ox 99% on R/A; db 17:30 BP 118 / 84; Pulse 99; Resp 18; Pulse Ox 99% on R/A; db 15:20 Body Mass Index 35.51 (99.79 kg, 167.64 cm) aa5 Pomerene Coma Score: 17:59 Eye Response: spontaneous(4). Verbal Response: oriented(5). Motor Response: obeys db commands(6). Total: 15. ED Course: 15:12 Patient arrived in ED. bd 15:13 Anu Moore FNP is PHCP. jh7 15:13 Yonis Buchanan MD is Attending Physician. [facility] 15:17 PHCP role handed off by Anu Moore FNP cp 15:17 Simba Parham PA is PHCP. cp 15:20 Arm band placed on Patient placed in an exam room, on a stretcher. aa5 15:21 Triage completed. aa5 15:29 Eloisa Arguelles, MELY is Primary Nurse. db 15:30 Inserted saline lock: 20 gauge in left antecubital area, using aseptic technique. Blood db collected. 16:01 XRAY Chest (1 view) In Process Unspecified. EDMS 17:08 Ki Aguilar MD is Hospitalizing Provider. cp 17:59 Patient has correct armband on for positive identification. Bed in low position. Call db light in reach. Side rails up X 1. Client placed on continuous cardiac and pulse oximetry monitoring. NIBP monitoring applied. Warm blanket given. 18:28 No provider procedures requiring assistance completed. Patient admitted, IV remains in db place. 18:29 CALLED FLOOR TO GIVE REPORT. NURSE STATES HAS NOT BEEN ASSIGNED AND WILL CALL BACK. db 18:41 Report given to CALLED FLOOR TO GIVE REPORT. STATES ROD MACHINE OPERATOR WILL TAKE REPORT. db 18:46 Report given to MELY CHICAS ON 4TH FLOOR 428. db Administered Medications: 15:41 Drug: Zofran (Ondansetron) 4 mg Route: IVP; Site: left antecubital; db 16:02 Follow up: Response: No adverse reaction db 16:00 CANCELLED (Physician Discretion): Nitroglycerin 0.4 mg Sublingual once cp 16:56 Drug: Aspirin Chewable Tablet 324 mg Route: PO; db 17:40 Follow up: Response: No adverse reaction db 16:56 Drug: Lasix (furosemide) 20 mg Route: IVP; Site: left antecubital; db 17:41 Follow up: Response: No adverse reaction db Medication: 14:56 VIS not applicable for this client. db Outcome: 17:09 Decision to Hospitalize by Provider. cp 18:28 Admitted to Tele db 18:28 Condition: stable 18:28 Instructed on the need for admit. 19:56 Patient left the ED. mw2 Signatures: Dispatcher [employer] EDMS Kacy Chamberlain Audri, RN RN aa5 Simba Parham PA PA cp Beto Bowman mw2 Anu Moore, DEPUTY HEAD DEPUTY HEAD 7 Eloisa Arguelles RN RN db
[2022-10-13 17:25] LABS: Urine Blood Negative (Negative); Urine Glucose Negative (Negative); Urine Protein 1+ (Negative); Urine pH 6.5 (5.0-7.0)
[2022-10-13] MEDS ORDERED: ACETAMINOPHEN 325 MG TABLET PO PRN (17:28)
[2022-10-13] MEDS ORDERED: HYDROCODONE/APAP 5/325 MG TAB PO PRN (17:28)
[2022-10-13] MEDS ORDERED: ONDANSETRON 4 MG/2 ML VIAL IV PRN (17:34)
--- NOTE | 2022-10-13 17:37 | P.HP ---
Certification for Inpatient Patient admitted to: Observation With expected LOS: <2 Midnights Patient will require the following post-hospital care: None Practitioner: I am a practitioner with admitting privileges, knowledge of patient current condition, hospital course, and medical plan of care. Services: Services provided to patient in accordance with Admission requirements found in Title 42 Section 412.3 of the Code of Federal Regulations <Dru Nicole - Last Filed: 10/14/22 03:35> Patient History Date of Service: 10/13/22 Reason for admission: SOB, Chest pain History of Present Illness: Patient is a 27-year-old male with a past medical history significant for hypertension, depression, CHF who presents with continued shortness of breath and chest pain that has been ongoing for the past 2 days. Patient reported that he was diagnosed with CHF in 2019. Patient indicated that chest pain located is in the left chest wall. Patient rated chest pain as a 8/10 in severity and described pain as aching in quality. Patient reported associated signs and symptoms of nausea, vomiting, orthopnea and left leg swelling. Patient denies any other signs or symptoms. Symptoms are aggravated or relieved by nothing. Patient decided to present to the hospital due to worsening symptoms. - Past Medical/Surgical History -: CHF -: HTN -: Obesity -: Depression Past Surgical History: Reviewed- Non-Contributory - Family History Father -: Heart disease, Hypertension, Other (see notes) Notes: dad has defibrillator Mother History Unknown: Yes - Social History Smoking Status: Never smoker Alcohol use: No CD- Drugs: No Caffeine use: No Place of Residence: Home <PattibaljitDru jama Doug - Last Filed: 10/14/22 03:35> Date of Service: 10/14/22 <Ki Aguilar - Last Filed: 10/14/22 06:48> Allergies No Known Allergies Allergy (Verified 10/13/22 20:48) Home Medications: Furosemide [Lasix] 20 mg PO DAILY 10/13/22 RX: Metoprolol Tartrate 25 mg PO BID 10/13/22 RX: Potassium Oral Tab [Klor-Con 10 mEq Tab*] 10 meq PO BID 10/13/22 Review of Systems General: Unremarkable Eyes: Unremarkable ENT: Unremarkable Respiratory: Shortness of Breath Cardiovascular: Chest Pain, Orthopnea Gastrointestinal: Nausea, Vomiting Genitourinary: Unremarkable Musculoskeletal: Pedal edema Integumentary: Unremarkable Neurological: Unremarkable Lymphatics: Unremarkable <Dru Nicole - Last Filed: 10/14/22 03:35> Physical Examination - Physical Exam General: Alert, In no apparent distress, Oriented x3, Cooperative HEENT: Atraumatic, PERRLA, Mucous membr. moist/pink, EOMI, Sclerae nonicteric Neck: Supple, 2+ carotid pulse no bruit, No LAD, Without JVD or thyroid abnormality Respiratory: Clear to auscultation bilaterally, Normal air movement Cardiovascular: Regular rate/rhythm, Normal S1 S2, Edema Capillary refill: <2 Seconds Gastrointestinal: Normal bowel sounds, Soft and benign, No tenderness, Tenderness Musculoskeletal: No clubbing, Swelling Integumentary: No rashes, No breakdown, No significant lesion, No erythema, No warmth Neurological: Normal gait, Normal speech, Normal strength at 5/5 x4 extr, Normal tone, Normal affect Lymphatics: No axilla or inguinal lymphadenopathy - Studies Laboratory Data (last 24 hrs) 10/13/22 15:30: PT 17.0 H, INR 1.55 10/13/22 15:30: WBC 9.30, Hgb 15.4, Hct 47.6, Plt Count 263 10/13/22 15:30: Sodium 140, Potassium 3.8, BUN 10, Creatinine 1.04, Glucose 178 H, Magnesium 2.1 <Dru Nicole - Last Filed: 10/14/22 03:35> - Studies Laboratory Data (last 24 hrs) 10/13/22 15:30: PT 17.0 H, INR 1.55 10/13/22 15:30: WBC 9.30, Hgb 15.4, Hct 47.6, Plt Count 263 10/13/22 15:30: Sodium 140, Potassium 3.8, BUN 10, Creatinine 1.04, Glucose 178 H, Magnesium 2.1 <Ki Aguilar - Last Filed: 10/14/22 06:48> Assessment and Plan - Plan --Acute on chronic systolic or diastolic CHF exacerbation. Echocardiogram pending to assess LV\valvular function and wall motion. Cardiology consulted. Continue diuresis with Lasix. Daily weight and strict I/O. We will await further recommendation from ship fastener. --Chest pain. To rule out ACS. We will trend serial troponins--currently negative. Telemetry to monitor for any significant arrhythmia. Further management per ship fastener. --Elevated D-dimer. CTA PE protocol to rule out PE. Continue supportive care. --Nausea and vomiting. Antiemetics on board. Continue supportive care. --Hypertension. Poorly controlled. Continue home medication and labetalol as needed. --Class II obesity. Likely secondary to excess calories intake. Patient counseled on weight reduction, diet and excise therapy. --Depression. Continue home medication when available. --DVT prophylaxis with Lovenox subQ. Discharge Plan: Home Plan to discharge in: 48 Hours - Advance Directives Does patient have a Living Will: No Does patient have a Durable POA for Healthcare: No - Code Status/Comfort Care Code Status Assessed: Yes Physician Review: Patient Assessed, Agree with Above Assessment and Plan Critical Care: No <Dru Nicole - Last Filed: 10/14/22 03:35> Physician Review: Patient Assessed, Agree with Above Assessment and Plan <Ki Aguilar - Last Filed: 10/14/22 06:48>
[2022-10-13 17:42] LABS: Barbiturates NEGATIVE (NEGATIVE); Benzodiazepines NEGATIVE (NEGATIVE); Cocaine NEGATIVE (NEGATIVE); METHAMPHETAM NEGATIVE (NEGATIVE); Methadone NEGATIVE (NEGATIVE); Opiates NEGATIVE (NEGATIVE); Phencyclidine NEGATIVE (NEGATIVE); THC Cannibis NEGATIVE (NEGATIVE)
[2022-10-13 18:23] LABS: SARS-CoV-2 Antigen Rapid Res Negative (Negative)
[2022-10-13 18:43] LABS: Thyroid Stimulating Hormone 1.71 uIU/mL (0.358-3.740); Troponin High Sensitivity 32.8 pg/mL (<58.9)
--- NOTE | 2022-10-13 18:55 | RAD REPORT ---
EXAM DESCRIPTION: CT - Chest For Pe Angio - 10/13/2022 6:43 pm CLINICAL HISTORY: Chest pain. chest pain COMPARISON: Chest For Pe Angio dated 10/25/2021 TECHNIQUE: CT angiogram of the pulmonary arteries was performed with MIP. All CT scans are performed using dose optimization technique as appropriate and may include automated exposure control or mA/KV adjustment according to patient size. FINDINGS: No evidence of pulmonary thromboembolism. Aorta is suboptimally contrast opacified for assessment. Cardiomegaly is present. Mild ground-glass opacity is present bilaterally. No focal infiltrate typical of pneumonia. No significant pericardial or pleural fluid. No concerning bony finding. Mildly prominent lymph nodes in both hilar regions. IMPRESSION: No evidence of pulmonary thromboembolism. Cardiomegaly is present. Mild interstitial pulmonary edema is possible.
--- NOTE | 2022-10-13 19:56 | CON ---
Date of Consultation: 10/13/2022 Reason For Consultation: Congestive heart failure. History Of Present Illness: This is a 27-year-old male who was diagnosed with nonischemic cardiomyop athy and systolic heart failure back in year 2019. He had workup in [facility] including coronary ang iogram that was normal as the report. Comes in because of worsening shortness of breath and lower ex tremity edema along with chest heaviness. After diuresis, he feels better. This patient does not fo llow up with anybody due to lack of medical insurance. Past Medical History: Congestive heart failure, hypertension, depression. Medications: Refer reconciliation sheet for detailed list. Allergies: NO KNOWN DRUG ALLERGIES. Family History: No premature coronary artery disease or cancer. Social History: Active smoker. Does not drink or use any drugs. Review of Systems: All systems reviewed are negative except for mentioned in HPI. Physical Examination: Vital Signs: Reviewed. Head and Neck: Pupils are equal, reactive to light. Intact eye movements. No cervical lymphadenopa thy. JVD elevation is present. Lungs: Crackles in both bases. No accessory muscle use or muscle retraction. Heart: Regular rate and rhythm. No extra sounds. Abdomen: Soft, nontender. Bowel sounds positive. No organomegaly. No masses or hernia. No rigidi ty or rebound. Extremities: Edema 1 to 2+ bilaterally. No clubbing, cyanosis. Intact pulses. Skin: No rash. Neurologic: Alert, awake and oriented x3. No acute focal deficits appreciated. Investigations: BNP 2797. BUN is 10, creatinine 1.04, and hemoglobin is 15.4. Chest x-ray, promine nt cardiac silhouette. No other abnormalities and CTA chest negative for pulmonary embolism. Assessment/recommendation: 1.Acute on chronic systolic congestive heart failure exacerbation. Doing well with Lasix. Continue 40 mg IV q.12 hours. Monitor BUN, creatinine, electrolytes. Please obtain an echocardiogram tomorr ow. 2.Chest pain. This is likely more of difficulty breathing than the pain and physical exam is negati ve. Please trend 2 more sets. As per report, he had coronary angiogram that was negative and the pa tient is very young for coronary artery disease. Further recommendations to follow after obtaining t he echocardiogram and cardiac component. SR/MODL Voice ID: [id number] Report ID: [id number]
[2022-10-13] MEDS: ENOXAPARIN 40 MG/0.4 ML SQ SCH (23:02)
[2022-10-14] MEDS ORDERED: LABETALOL 20 MG/4ML SYRINGE IV PRN (03:28)
[2022-10-14 03:37] LABS: Absolute Lymphocytes (CBC) 4.3 K/uL (0.7-4.9); Hematocrit 46.1 % (39.6-49.0); Lymphocytes % 43.3 % (15.3-44.8); MCV 83.9 fL (80-100); MPV 9.3 fL (7.6-11.3); RBC Red Blood Cell Count 5.49 M/uL (4.33-5.43)
[2022-10-14 06:48] LABS: Magnesium 2.2 mg/dL (1.6-2.4); Phosphorus 3.5 mg/dL (2.5-4.9); Potassium 4.4 mmol/L (3.5-5.1)
--- NOTE | 2022-10-14 07:36 | EKG ---
Test Date: 2022-10-13 Test Time: 15:36:17 Answerer: DAYAMI MEASUREMENT RESULTS: Intervals: Rate: 97 MD: 154 QRSD: 96 QT: 408 QTc: 518 [place]: P: 22 MD: 154 QRS: -21 T: 114 INTERPRETIVE STATEMENTS: Normal sinus rhythm Possible Left atrial enlargement Left ventricular hypertrophy ST & T wave abnormality, consider lateral ischemia Prolonged QT Abnormal ECG Compared to ECG 10/25/2021 15:12:00 Left ventricular hypertrophy now present ST (T wave) deviation now present Possible ischemia now present Prolonged QT interval now present Sinus tachycardia no longer present Right-axis deviation no longer present Electronically Signed On 10-14-22 07:35:03 CRAB BACKER by Nathaniel Hunter
[2022-10-14] MEDS: METOPROLOL TAR 25 MG TAB PO SCH ×2 (07:59→21:02)
[2022-10-14] MEDS: ENOXAPARIN 40 MG/0.4 ML SQ SCH (07:59)
[2022-10-14] MEDS: ASPIRIN 81 MG CHEWABLE TABLET PO SCH ×2 (07:59→08:00)
[2022-10-14] MEDS ORDERED: INFLUENZA VACCINE (for 6+ mo) 0.5 ML DOSE IMVAC ONE (08:00)
[2022-10-14] MEDS: POTASSIUM CL SA 10 MEQ TAB PO SCH ×2 (08:00→21:02)
[2022-10-14] MEDS: FUROSEMIDE 40 MG/4 ML VIAL IV SCH ×2 (08:00→16:37)
[2022-10-14] MEDS ORDERED: FUROSEMIDE 40 MG/4 ML VIAL IV SCH (09:00)
--- NOTE | 2022-10-14 09:26 | RAD REPORT ---
EXAM DESCRIPTION: USExtrem Venous W Compress Bil10/14/2022 9:13 am CLINICAL HISTORY: elevated d-dimer COMPARISON: none FINDINGS: The common femoral, superficial femoral, greater saphenous, popliteal and posterior tibial veins bilaterally are compressible and demonstrate augmentation. Doppler demonstrates good flow. Grayscale, color and spectral analysis performed on all vessels IMPRESSION: No evidence of deep venous thrombosis involving either lower extremity.
[2022-10-14] MEDS: SACUBITRIL/VALSARTAN 24/26 MG TAB PO SCH ×2 (14:56→21:02)
--- NOTE | 2022-10-14 18:03 | P.PN ---
Subjective Date of Service: 10/14/22 Chief Complaint: SOB, Chest pain No acute events overnight. He reports that his edema and shortness of breath are slightly improved. Per Dr. Coon, he has dilated cardiomyopathy with depressed ejection fraction. He recommends starting sacubutril-valsartan. Review of Systems 10-point ROS is otherwise unremarkable Respiratory: Shortness of Breath Cardiovascular: Orthopnea, Edema Physical Examination - Vital Signs Temperature: 96.4 F Blood Pressure: 129/96 Pulse: 89 Respirations: 16 Pulse Ox (%): 98 - Physical Exam General: Alert, In no apparent distress, Oriented x3 Neck: JVD not distended Respiratory: Clear to auscultation bilaterally, Normal air movement Cardiovascular: Regular rate/rhythm, Normal S1 S2, No gallops, No rubs, No murmurs, Edema (trace-1+ BLE) Gastrointestinal: Normal bowel sounds, Soft and benign, Non-distended, No tenderness, No rebound, No guarding Musculoskeletal: No clubbing Integumentary: No rashes Neurological: Normal speech, Normal affect Assessment And Plan - Plan # Acute on Chronic Decompensated Systolic Congestive Heart Failure with Reduced Ejection Fraction # Moderate Pulmonary Hypertension # Moderate-Severe Tricuspid Regurgitation # Moderate Mitral Regurgitation # Hypertension - Consult Cardiology and spoke with Dr. Coon - recommendations appreciated - Started metoprolol and sacubutril-valsartan - Chest x-ray = "cardiac silhouette is prominent for age, recommend followup echocardiogram." - Per Dr. Coon, transthoracic echocardiogram revealed severely depressed left ventricular ejection fraction (10-15%), severe global hypokinesis, left atrial enlargement, moderate mitral regurgitation, moderatesevere tricuspid regurgitation, moderate pulmonary hypertension with an RVSP of 55-50 mmHg - Diuresis with IV furosemide for today - Will likely require a Life Vest at discharge - Appreciate CM assistance - Daily weights - Strict I/O - Cardiac diet, 1.5 L fluid restriction, 2 g Na restriction # Elevated D-Dimer - D-Dimer = 1631 - Bilateral lower extremity Doppler = "no evidence of deep venous thrombosis involving either lower extremity." - CT chest angiogram = "no evidence of pulmonary thromboembolism. Cardiomegaly is present. Mild interstitial pulmonary edema is possible." # Depression - Resume home medications once verified # Obesity - BMI 33.2 kg/m2 - Lifestyle modifications Ki Aguilar M.D.
[2022-10-15 04:41] LABS: Magnesium 2.1 mg/dL (1.6-2.4); Potassium 3.7 mmol/L (3.5-5.1)
[2022-10-15] MEDS ORDERED: POTASSIUM CL SA 10 MEQ TAB PO ONE (05:30)
--- NOTE | 2022-10-15 08:03 | ECHO ---
HEIGHT: 5 ft 6 in WEIGHT: 205 lb 6.4 oz DATE OF STUDY: 10/14/[address]: Simba Parham [facility] 2-DIMENSIONAL: YES M.MODE: YES DOPPLER: YES COLOR FLOW: YES TDS: PORTABLE: YES DEFINITY: BUBBLE STUDY: DIAGNOSIS: CONGESTIVE HEART FAILURE CARDIAC HISTORY: CATHERIZATION: SURGERY: PROSTHETIC VALVE: PACEMAKER: MEASUREMENTS (cm) DIASTOLIC (NORMALS) SYSTOLIC (NORMALS) IVSd 1.1 (0.6-1.2) LA Diam 5.3 (1.9-4.0) LVEF 12% LVIDd 6.0 (3.5-5.7) LVIDs 5.7 (2.0-3.5) %FS 5% LVPWd 1.2 (0.6-1.2) Ao Diam 3.0 (2.0-3.7) 2 DIMENSIONAL ASSESSMENT: RIGHT ATRIUM: NORMAL LEFT ATRIUM: ENLARGED RIGHT VENTRICLE: NORMAL LEFT VENTRICLE: DILATED LEFT VENTRICLE TRICUSPID VALVE: MODERATE TRICUSPID REGURGITATION MITRAL VALVE: MILD MITRAL REGURGITATION PULMONIC VALVE: NORMAL AORTIC VALVE: TRACE AORTIC INSUFFICIENCY PERICARDIAL EFFUSION: NONE AORTIC ROOT: NORMAL LEFT VENTRICULAR WALL MOTION: SEVERE GLOBAL HYPOKINESIS DOPPLER/COLOR FLOW: SEE BELOW COMMENTS: 1. SEVERELY DEPRESSED LEFT VENTRICULAR EJECTION FRACTION 10-15% 2. SEVERE GLOBAL HYPOKINESIS 3. LEFT ATRIAL ENLARGEMENT 4. MODERATE MITRAL REGURGITATION 5. MODERATE TO SEVERE TRICUSPID REGURGITATION 6. MODERATE PULMONARY HYPERTENSION WITH RIGHT VENTRICULAR SYSTOLIC PRESSURE OF 50-55 mmHg TECHNOLOGIST: SUMIT LUCERO
[2022-10-15] MEDS: FUROSEMIDE 40 MG/4 ML VIAL IV SCH ×2 (08:16→16:16)
[2022-10-15] MEDS: METOPROLOL TAR 25 MG TAB PO SCH ×2 (08:17→21:01)
[2022-10-15] MEDS: ASPIRIN 81 MG CHEWABLE TABLET PO SCH (08:17)
[2022-10-15] MEDS: ENOXAPARIN 40 MG/0.4 ML SQ SCH (08:17)
[2022-10-15] MEDS: POTASSIUM CL SA 10 MEQ TAB PO SCH ×2 (08:17→21:08)
[2022-10-15] MEDS: SACUBITRIL/VALSARTAN 24/26 MG TAB PO SCH ×2 (08:17→21:01)
--- NOTE | 2022-10-15 14:41 | P.PN ---
Subjective Date of Service: 10/15/22 Chief Complaint: SOB, Chest pain No acute events overnight. He reports that his edema and shortness of breath have resolved at rest. However, he will become short of breath with exertion. Case management is working to get him expeditied Medicaid and a Life Vest prior to discharge. He denies chest pain or palpitations. Review of Systems 10-point ROS is otherwise unremarkable Respiratory: SOB with Excertion Physical Examination - Vital Signs Temperature: 97.4 F Blood Pressure: 153/86 Pulse: 87 Respirations: 17 Pulse Ox (%): 98 Assessment And Plan - Plan - Physical Exam General: Alert, In no apparent distress, Oriented x3 Neck: JVD not distended Respiratory: Clear to auscultation bilaterally, Normal air movement Cardiovascular: Regular rate/rhythm, No gallops, No rubs, No murmurs, Edema (trace-1+ BLE) Gastrointestinal: Soft and benign, Non-distended, No tenderness, No rebound, No guarding Musculoskeletal: No clubbing Integumentary: No rashes Neurological: Normal speech, Normal affect # Acute on Chronic Decompensated Systolic Congestive Heart Failure with Reduced Ejection Fraction (LVEF 10-15 %) # Moderate Pulmonary Hypertension # Moderate-Severe Tricuspid Regurgitation # Moderate Mitral Regurgitation # Hypertension - Consult Cardiology and spoke with Dr. Coon - recommendations appreciated - Started metoprolol and sacubutril-valsartan - Chest x-ray = "cardiac silhouette is prominent for age, recommend followup echocardiogram." - Transthoracic echocardiogram = "1. severely depressed left ventricular ejection fraction 10-15% 2. severe global hypokinesis 3. left atrial enlargement 4. moderate mitral regurgitation 5. moderate to severe tricuspid regurgitation 6. moderate pulmonary hypertension with right ventricular systolic pressure of 50-55 mmHg" - Diuresis with IV furosemide for today - Will likely require a Life Vest at discharge - Appreciate CM assistance - Daily weights - Strict I/O - Cardiac diet, 1.5 L fluid restriction, 2 g Na restriction # Elevated D-Dimer - D-Dimer = 1631 - Bilateral lower extremity Doppler = "no evidence of deep venous thrombosis involving either lower extremity." - CT chest angiogram = "no evidence of pulmonary thromboembolism. Cardiomegaly is present. Mild interstitial pulmonary edema is possible." # Depression - Resume home medications once verified # Obesity - BMI 33.2 kg/m2 - Lifestyle modifications Ki Aguilar M.D.
[2022-10-16 04:27] LABS: Potassium 3.8 mmol/L (3.5-5.1)
[2022-10-16] MEDS ORDERED: POTASSIUM CL SA 10 MEQ TAB PO ONE (06:00)
[2022-10-16] MEDS: ENOXAPARIN 40 MG/0.4 ML SQ SCH (09:12)
[2022-10-16] MEDS: FUROSEMIDE 40 MG/4 ML VIAL IV SCH ×2 (09:12→17:03)
[2022-10-16] MEDS: METOPROLOL TAR 50 MG TAB PO SCH ×2 (09:13→20:48)
[2022-10-16] MEDS: POTASSIUM CL SA 10 MEQ TAB PO SCH ×2 (09:13→20:49)
[2022-10-16] MEDS: SACUBITRIL/VALSARTAN 24/26 MG TAB PO SCH ×2 (09:13→20:49)
[2022-10-16 10:59] LABS: HIV AG/AB 4TH GEN Non-reactive (Non-reactive)
--- NOTE | 2022-10-16 15:23 | P.PN ---
Subjective Date of Service: 10/16/22 Chief Complaint: SOB, Chest pain No acute events overnight. He reports that his edema and shortness of breath have resolved and he is eager to be discharged home. We are waiting for his Life Vest prior to discharge. Appreciate case management assistance. He denies chest pain or palpitations. Review of Systems 10-point ROS is otherwise unremarkable Physical Examination - Vital Signs Temperature: 96.8 F Blood Pressure: 132/94 Pulse: 93 Respirations: 18 Pulse Ox (%): 97 Assessment And Plan - Plan - Physical Exam General: Alert, In no apparent distress, Oriented x3 Neck: JVD not distended Respiratory: Clear to auscultation bilaterally, Normal air movement Cardiovascular: Regular rate/rhythm, No murmurs, Edema (trace BLE) Gastrointestinal: Soft and benign, Non-distended, No tenderness, No rebound, No guarding Musculoskeletal: No clubbing Integumentary: No rashes Neurological: Normal speech, Normal affect # Acute on Chronic Decompensated Systolic Congestive Heart Failure with Reduced Ejection Fraction (LVEF 10-15 %) # Moderate Pulmonary Hypertension # Moderate-Severe Tricuspid Regurgitation # Moderate Mitral Regurgitation # Hypertension - Consult Cardiology and spoke with Dr. Coon - recommendations appreciated - Started metoprolol and sacubutril-valsartan - Chest x-ray = "cardiac silhouette is prominent for age, recommend followup echocardiogram." - Transthoracic echocardiogram = "1. severely depressed left ventricular ejection fraction 10-15% 2. severe global hypokinesis 3. left atrial enlargement 4. moderate mitral regurgitation 5. moderate to severe tricuspid regurgitation 6. moderate pulmonary hypertension with right ventricular systolic pressure of 50-55 mmHg" - Diuresis with IV furosemide for today - Waiting for Life Vest prior to discharge - Appreciate CM assistance - Daily weights - Strict I/O - Cardiac diet, 1.5 L fluid restriction, 2 g Na restriction # Elevated D-Dimer - D-Dimer = 1631 - Bilateral lower extremity Doppler = "no evidence of deep venous thrombosis involving either lower extremity." - CT chest angiogram = "no evidence of pulmonary thromboembolism. Cardiomegaly is present. Mild interstitial pulmonary edema is possible." # Depression - Resume home medications once verified # Obesity - BMI 33.2 kg/m2 - Lifestyle modifications Ki Aguilar M.D.
[2022-10-17 04:01] LABS: Potassium 4.2 mmol/L (3.5-5.1)
[2022-10-17] MEDS: ASPIRIN 81 MG CHEWABLE TABLET PO SCH (09:47)
[2022-10-17] MEDS: METOPROLOL TAR 50 MG TAB PO SCH ×2 (09:47→20:38)
[2022-10-17] MEDS: FUROSEMIDE 40 MG/4 ML VIAL IV SCH ×2 (09:47→17:27)
[2022-10-17] MEDS: POTASSIUM CL SA 10 MEQ TAB PO SCH ×2 (09:48→20:38)
[2022-10-17] MEDS: SACUBITRIL/VALSARTAN 24/26 MG TAB PO SCH ×2 (09:48→20:38)
[2022-10-17] MEDS: ENOXAPARIN 40 MG/0.4 ML SQ SCH (09:48)
--- NOTE | 2022-10-17 12:44 | P.PN ---
Subjective Date of Service: 10/17/22 Chief Complaint: SOB, Chest pain No acute events overnight. He is currently symptom-free, but is waiting for his Life Vest. Appreciate case management assistance. Review of Systems 10-point ROS is otherwise unremarkable Physical Examination - Vital Signs Temperature: 97.4 F Blood Pressure: 125/79 Pulse: 84 Respirations: 18 Pulse Ox (%): 98 Assessment And Plan - Plan - Physical Exam General: Alert, In no apparent distress, Oriented x3 Neck: JVD not distended Respiratory: Clear to auscultation bilaterally, Normal air movement Cardiovascular: Regular rate/rhythm, No murmurs, Edema (trace BLE) Gastrointestinal: Soft and benign, Non-distended, No tenderness, No rebound, No guarding Musculoskeletal: No clubbing Integumentary: No rashes Neurological: Normal speech, Normal affect # Acute on Chronic Decompensated Systolic Congestive Heart Failure with Reduced Ejection Fraction (LVEF 10-15 %) # Moderate Pulmonary Hypertension # Moderate-Severe Tricuspid Regurgitation # Moderate Mitral Regurgitation # Hypertension - Consult Cardiology and spoke with Dr. Coon - recommendations appreciated - Started metoprolol and sacubutril-valsartan - Chest x-ray = "cardiac silhouette is prominent for age, recommend followup ech ocardiogram." - Transthoracic echocardiogram = "1. severely depressed left ventricular ejection fraction 10-15% 2. severe global hypokinesis 3. left atrial enlargement 4. moderate mitral regurgitation 5. moderate to severe tricuspid regurgitation 6. moderate pulmonary hypertension with right ventricular systolic pressure of 50-55 mmHg" - Diuresis with IV furosemide for today - Waiting for Life Vest prior to discharge - Appreciate CM assistance - Daily weights - Strict I/O - Cardiac diet, 1.5 L fluid restriction, 2 g Na restriction # Elevated D-Dimer - D-Dimer = 1631 - Bilateral lower extremity Doppler = "no evidence of deep venous thrombosis involving either lower extremity." - CT chest angiogram = "no evidence of pulmonary thromboembolism. Cardiomegaly is present. Mild interstitial pulmonary edema is possible." # Depression - Resume home medications once verified # Obesity - BMI 33.2 kg/m2 - Lifestyle modifications Discharge is pending Life Vest. Ki Aguilar M.D.
[2022-10-17 19:31] VITALS: BMI 31.9
[2022-10-18] MEDS: POTASSIUM CL SA 10 MEQ TAB PO SCH ×2 (10:15→21:41)
[2022-10-18] MEDS: METOPROLOL TAR 50 MG TAB PO SCH ×2 (10:16→21:41)
[2022-10-18] MEDS: ASPIRIN 81 MG CHEWABLE TABLET PO SCH (10:16)
[2022-10-18] MEDS: SACUBITRIL/VALSARTAN 24/26 MG TAB PO SCH ×2 (10:16→21:41)
[2022-10-18] MEDS: ENOXAPARIN 40 MG/0.4 ML SQ SCH (10:16)
[2022-10-18] MEDS: FUROSEMIDE 40 MG/4 ML VIAL IV SCH ×2 (10:17→17:36)
--- NOTE | 2022-10-18 19:07 | P.PN ---
Subjective Date of Service: 10/18/22 Chief Complaint: SOB, Chest pain No acute events overnight. He is currently symptom-free, but is waiting for his Life Vest. He denies any chest pain, palpitations, or shortness of breath. Review of Systems 10-point ROS is otherwise unremarkable Physical Examination - Vital Signs Temperature: 97.4 F Blood Pressure: 129/69 Pulse: 82 Respirations: 14 Pulse Ox (%): 99 Assessment And Plan - Plan - Physical Exam General: Alert, In no apparent distress, Oriented x3 Neck: JVD not distended Respiratory: Clear to auscultation bilaterally, Normal air movement Cardiovascular: Regular rate/rhythm, No murmurs, Edema (trace BLE) Gastrointestinal: Soft and benign, Non-distended, No tenderness Musculoskeletal: No clubbing Integumentary: No rashes Neurological: Normal speech, Normal affect # Acute on Chronic Decompensated Systolic Congestive Heart Failure with Reduced Ejection Fraction (LVEF 10-15 %) # Moderate Pulmonary Hypertension # Moderate-Severe Tricuspid Regurgitation # Moderate Mitral Regurgitation # Hypertension - Consult Cardiology and spoke with Dr. Coon - recommendations appreciated - Started metoprolol and sacubutril-valsartan - Chest x-ray = "cardiac silhouette is prominent for age, recommend followup ech ocardiogram." - Transthoracic echocardiogram = "1. severely depressed left ventricular ejection fraction 10-15% 2. severe global hypokinesis 3. left atrial enlargement 4. moderate mitral regurgitation 5. moderate to severe tricuspid regurgitation 6. moderate pulmonary hypertension with right ventricular systolic pressure of 50-55 mmHg" - Diuresis with IV furosemide - switch to PO at discharge - Waiting for Life Vest prior to discharge - Appreciate CM assistance - Daily weights - Strict I/O - Cardiac diet, 1.5 L fluid restriction, 2 g Na restriction # Elevated D-Dimer - D-Dimer = 1631 - Bilateral lower extremity Doppler = "no evidence of deep venous thrombosis involving either lower extremity." - CT chest angiogram = "no evidence of pulmonary thromboembolism. Cardiomegaly is present. Mild interstitial pulmonary edema is possible." # Depression - Resume home medications once verified # Obesity - BMI 33.2 kg/m2 - Lifestyle modifications No changes today. Discharge is pending Life Vest. Ki Aguilar M.D.
[2022-10-19 04:00] LABS: Potassium 3.8 mmol/L (3.5-5.1)
[2022-10-19] MEDS: METOPROLOL TAR 50 MG TAB PO SCH ×2 (10:19→21:24)
[2022-10-19] MEDS: POTASSIUM CL SA 10 MEQ TAB PO SCH ×2 (10:19→21:24)
[2022-10-19] MEDS: ENOXAPARIN 40 MG/0.4 ML SQ SCH (10:20)
[2022-10-19] MEDS: SACUBITRIL/VALSARTAN 24/26 MG TAB PO SCH ×2 (10:20→21:24)
[2022-10-19] MEDS: ASPIRIN 81 MG CHEWABLE TABLET PO SCH (10:20)
--- NOTE | 2022-10-19 13:11 | P.PN ---
Subjective Date of Service: 10/19/22 Chief Complaint: SOB, Chest pain No acute events overnight. He is currently symptom-free, but is waiting for his Life Vest. He denies any chest pain, palpitations, or shortness of breath. This morning, his mother, Ms. Erazo, was at bedside. With his permission, I updated her on his hospital course. All questions answered to the best of my ability. 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 Coon - recommendations appreciated - Started metoprolol and sacubutril-valsartan - Chest x-ray = "cardiac silhouette is prominent for age, recommend followup echocardiogram." - Transthoracic echocardiogram = "1. severely depressed left ventricular ejection fraction 10-15% 2. severe global hypokinesis 3. left atrial enlargement 4. moderate mitral regurgitation 5. moderate to severe tricuspid regurgitation 6. moderate pulmonary hypertension with right ventricular systolic pressure of 50-55 mmHg" - Diuresis with PO furosemide - Waiting for Life Vest prior to discharge - Appreciate CM assistance - Daily weights - Strict I/O - Cardiac diet, 1.5 L fluid restriction, 2 g Na restriction # Elevated D-Dimer - D-Dimer = 1631 - Bilateral lower extremity Doppler = "no evidence of deep venous thrombosis involving either lower extremity." - CT chest angiogram = "no evidence of pulmonary thromboembolism. Cardiomegaly is present. Mild interstitial pulmonary edema is possible." # Depression - Resume home medications once verified # Obesity - BMI 33.2 kg/m2 - Lifestyle modifications Discharge is pending Life Vest. Possible discharge tomorrow. Ki Aguilar M.D.
[2022-10-20] MEDS: ASPIRIN 81 MG CHEWABLE TABLET PO SCH (08:51)
[2022-10-20] MEDS: ENOXAPARIN 40 MG/0.4 ML SQ SCH (08:51)
[2022-10-20] MEDS: POTASSIUM CL SA 10 MEQ TAB PO SCH (08:51)
[2022-10-20] MEDS: METOPROLOL TAR 50 MG TAB PO SCH (08:52)
[2022-10-20] MEDS: SACUBITRIL/VALSARTAN 24/26 MG TAB PO SCH (08:52)
[2022-10-20] MEDS ORDERED: FUROSEMIDE 40 MG TABLET PO SCH (09:00)
[2022-10-20 15:59] VITALS: O2SAT 99
[2022-10-20 16:06] VITALS: BP 127/72; TEMP 97.8
== END 2022-10-20 18:08 | disposition home or self-care (01) | DRG 291 ==
LOC: ER 15:01 → ERHOLD 17:26 → 4TH 19:40
PROVIDERS: ADMIT Internal Medicine; ATTEND Hospitalist
DX: I11.0 Hypertensive heart disease with heart failure (principal); I50.23 Acute on chronic systolic (congestive) heart failure; F32.A Depression, unspecified; E66.09 Other obesity due to excess calories; I42.0 Dilated cardiomyopathy; I27.20 Pulmonary hypertension, unspecified; I08.1 Rheumatic disorders of both mitral and tricuspid valves; R79.89 Other specified abnormal findings of blood chemistry; Z23 Encounter for immunization; Z68.33 Body mass index [BMI] 33.0-33.9, adult; Z79.899 Other long term (current) drug therapy; Z20.822 Contact with and (suspected) exposure to COVID-19
CPT/HCPCS: 36415; 71045; 71275; 80048; 80307; 81003; 83735; 83880; 84100; 84439; 84443; 84484; 85025; 85379; 85610; 87389; 87811; 90471; 93005; 93306; 93970; 96374; 96375; 99285; J1650; J1940; J2405; Q2035; Q9967

== ENCOUNTER 2022-10-28 17:20 | Emergency (ER) | payer OTHER, SELFPAY ==
--- OUTSIDE RECORDS SUMMARY | 2022-10-28 17:24 | XMS REPORT | Continuity of Care Document ---
:1995 Author Organization [facility] t Address [address] [place] [address] Care Team Providers Name Role Phone Slade VIDAL, [facility] Primary Care Physician [phone] Jong Luna RN Attending Clinician Unavailable Michelle STEAMTABLE ATTENDANT RAILROAD, Kesha Attending Clinician Buddy VIDAL, Tan Fontaine Attending Clinician Harvinder Scott MD Attending Clinician Marine Webster MD Attending Clinician [phone] Angy Bar DO Attending Clinician MD HARVINDER SCOTT Attending Clinician Unavailable PINKY ALBERTO Attending Clinician Unavailable MARGO CASTANO Attending Clinician Unavailable Zara Attending Clinician Unavailable MARINE WEBSTER Admitting Clinician Unavailable MD HARVINDER SCOTT Admitting Clinician Unavailable MARGO CASTANO Admitting Clinician Unavailable Hawkins_M Admitting Clinician Unavailable Payers Payer Name Policy Type Policy Number Effective Date Expiration Date Linda cast[place] [id number] 2019 00:00:00 [place] Problems Condition Condition [...] Added automatic ally from request for surgery [id number] Hypertensi Hypertensi Problem Active M atagor ve [...] Date Stop Date Quantity Comments Source History [facility] Std Drinks Hospit al History [facility] Binge [facility] Alcohol intake 2021-10-27 2021-10-27 Lifetime [facility] 00:00:00 00:00:00 non-drinker Hospital (finding) Tobacco use and 2020-02-22 2020-02-22 Former smokeless [facility] exposure 00:00:00 00:00:00 tobacco user Hospital Cigarettes smoked 2020-02-22 2020-02-[address] current (pack per 00:00:00 00:00:00 Hospita l day) - Reported History SDOH 2020-02-22 2020-02-22 1 [facility] Alcohol Frequency 00:00:00 00:00:00 Hospita l History of tobacco 2020-02-21 User of smokeless [facility] use 00:00:00 tobacco Hospital Sex Assigned At [birth year] [facility] 00:00:00 00:00:00 Hospital Smoking Status Start Date Stop Date Source Ex-smoker 2020-02-22 00:00:00 2020-02-22 00:00:00 [facility] Medications Ordered Filled Start Stop Current Ordering Indication Dosage Frequency Signature Comments Components Source Medication Medication Date Date Medication? Clinician (SIG) Name Name 1 tab 2021-09 No daily. 2- 00:00: 00 Dose 2021- No Unknown 11-19 00:00: 00 potassium 2021-0 Yes 20meq QD Take 20 Meth che [...] Started by his primary care doctor potassium 0 Yes 20meq QD Take 20 Meth che chloride 2-[address] (K-DUR) 20 18:08: mouth Hospit a MEQ CR 20 daily. l tablet Started by his primary care doctor potassium 0 Yes 20meq QD Take 20 Meth che chloride 2-[address] (K-DUR) 20 18:08: mouth Hospit a MEQ CR 20 daily. l tablet Started by his primary care doctor potassium 0 Yes 20meq QD Take 20 Meth che chloride 2-[address] (K-DUR) 20 18:08: mouth Hospit a MEQ CR 20 daily. l tablet Started by his primary care doctor potassium 0 Yes 20meq QD Take 20 Meth che chloride 2-[address] (K-DUR) 20 18:08: mouth Hospit a MEQ CR 20 daily. l tablet Started by his primary care doctor potassium 0 Yes 20meq QD Take 20 Meth che chloride 2-[address] (K-DUR) 20 18:08: mouth Hospit a MEQ CR 20 daily. l tablet Started by his primary care doctor potassium 2022-0 Yes 20meq QD Take 20 Meth che chloride 2-[address] (K-DUR) 20 18:08: mouth Hospit a MEQ CR 20 daily. l tablet Started by his primary care doctor potassium 2022-0 Yes 20meq QD Take 20 Meth che chloride 2-[address] (K-DUR) 20 18:08: mouth Hospit a MEQ CR 20 daily. l tablet Started by his primary care doctor metFORMIN 2022-0 Yes 500mg QD Take 500 Met [facility]odi (GLUCOPHAGE 2-[address] ) 500 mg 18:03: mouth Hospita tablet 24 daily with l breakfast. metFORMIN 2022-0 Yes 500mg QD Take 500 [facility] (GLUCOPHAGE 2-[address] ) 500 mg 18:03: mouth Hospita tablet 24 daily with l breakfast. metFORMIN 2022-0 Yes 500mg QD Take 500 Met [facility] (GLUCOPHAGE 2-[address] ) 500 mg 18:03: mouth Hospita tablet 24 daily with l breakfast. metFORMIN 2022-0 Yes 500mg QD Take 500 Met [facility] (GLUCOPHAGE 2-[address] ) 500 mg 18:03: mouth Hospita tablet 24 daily with l breakfast. metFORMIN 2022-0 Yes 500mg QD Take 500 Met [facility] (GLUCOPHAGE 2-[address] ) 500 mg 18:03: mouth Hospita tablet 24 daily with l breakfast. metFORMIN 2022-0 Yes 500mg QD Take 500 Met [facility] (GLUCOPHAGE 2-[address] ) 500 mg 18:03: mouth Hospita tablet 24 daily with l breakfast. metFORMIN 2022-0 Yes 500mg QD Take 500 Met [facility] (GLUCOPHAGE 2-[address] ) 500 mg 18:03: mouth Hospita tablet 24 daily with l breakfast. metFORMIN 2022-0 Yes 500mg QD Take 500 Met [facility]odi (GLUCOPHAGE 2-[address] ) 500 mg 18:03: mouth Hospita tablet 24 daily with l breakfast. metFORMIN 2022-0 Yes 500mg QD Take 500 Met [facility]odi (GLUCOPHAGE 2-[address] ) 500 mg 18:03: mouth Hospita tablet 24 daily with l breakfast. metFORMIN 2022-0 Yes 500mg QD Take 500 Met hodi [...] (two) l tablet times a day. carvediloL No 3.125mg Q.5D Take 3.125 Methodi (COREG) [...] (two) l tablet times a day. carvediloL No 3.125mg Q.5D Take 3.125 Methodi (COREG) [...] 125ug QD Take 1 Method i (LANOXIN) 11-01-[address] 125 mcg 00:00: 05:59 (125 mcg Hospi ta (0.125 mg) 00 :00 total) by l tablet mouth daily for 30 days. spironolact 2021- No 25mg QD Take 1 Met hodi one -12 29-07 tablet (25 st (ALDACTONE) 00:00: 05:59 mg total) Hospita 25 MG 00 :00 by mouth l tablet daily for 30 days. digOXIN 2021- No 125ug QD Take 1 Method i (LANOXIN) 11-01-[address] 125 mcg 00:00: 05:59 (125 mcg Hospi ta (0.125 mg) 00 :00 total) by l tablet mouth daily for 30 days. spironolact 2021- No 25mg QD Take 1 Met hodi one 2-04 03-07 tablet (25 st (ALDACTONE) 00:00: 05:59 [...] l tablet daily for 30 days. digOXIN No 125ug QD Take 1 Method i [...] l tablet daily for 30 days. digOXIN No 125ug QD Take 1 Method i [...] l tablet daily for 30 days. digOXIN No 125ug QD Take 1 Method i [...] l tablet daily for 30 days. digOXIN No 125ug QD Take 1 Method i [...] l tablet daily for 30 days. digOXIN No 125ug QD Take 1 Method i [...] l tablet daily for 30 days. digOXIN No 125ug QD Take 1 Method i [...] l tablet daily for 30 days. digOXIN No 125ug QD Take 1 Method i [...] l tablet daily for 30 days. digOXIN No 125ug QD Take 1 Method i (LANOXIN) 11-[address] 125 mcg 00:00: 00:00 (125 mcg Hospi ta (0.125 mg) 00 :00 total) by l tablet mouth daily for 30 days. spironolact No 25mg QD Take 1 Met hodi one 11-01 tablet (25 st (ALDACTONE) 00:00: 00:00 mg total) Hospita 25 MG 00 :00 by mouth l tablet daily for 30 days. digOXIN 125ug QD Take 1 Method i (LANOXIN) 11-[address] 125 mcg 00:00: 00:00 (125 mcg Hospi ta (0.125 mg) 00 :00 total) by l tablet mouth daily for 30 days. spironolact No 25mg QD Take 1 Met hodi one 11-01 tablet (25 st (ALDACTONE) 00:00: 00:00 mg total) Hospita 25 MG 00 :00 by mouth l tablet daily for 30 days. digOXIN No 125ug QD Take 1 Method i (LANOXIN) 11-[address] 125 mcg 00:00: 00:00 (125 mcg Hospi ta (0.125 mg) 00 :00 total) by l tablet mouth daily for 30 days. spironolact No 25mg QD Take 1 Met hodi one 11-01 tablet (25 st (ALDACTONE) 00:00: 00:00 mg total) Hospita 25 MG 00 :00 by mouth l tablet daily for 30 days. digOXIN No 125ug QD Take 1 Method i (LANOXIN) 11-[address] 125 mcg 00:00: 00:00 (125 mcg Hospi ta (0.125 mg) 00 :00 total) by l tablet mouth daily for 30 days. spironolact No 25mg QD Take 1 Met hodi one 2-04 02-03 tablet (25 st (ALDACTONE) 00:00: 00:00 mg total) Hospita 25 MG 00 :00 by mouth l tablet daily for 30 days. digOXIN 2021- No 125ug QD Take 1 Method i (LANOXIN) 11-[address] 125 mcg 00:00: 00:00 (125 mcg Hospi ta (0.125 mg) 00 :00 total) by l tablet mouth daily for 30 days. spironolact No 25mg QD Take 1 Met hodi one 11-01 tablet (25 st (ALDACTONE) 00:00: 00:00 mg total) Hospita 25 MG 00 :00 by mouth l tablet daily for 30 days. digOXIN No 125ug QD Take 1 Method i (LANOXIN) 11-[address] 125 mcg 00:00: 00:00 (125 mcg Hospi ta (0.125 mg) 00 :00 total) by l tablet mouth daily for 30 days. spironolact No 25mg QD Take 1 Met hodi one 11-01 tablet (25 st (ALDACTONE) 00:00: 00:00 mg total) Hospita 25 MG 00 :00 by mouth l tablet daily for 30 days. digOXIN No 125ug QD Take 1 Method i (LANOXIN) 11-[address] 125 mcg 00:00: 00:00 (125 mcg Hospi ta (0.125 mg) 00 :00 total) by l tablet mouth daily for 30 days. spironolact No 25mg QD Take 1 Met hodi one 11-01 tablet (25 st (ALDACTONE) 00:00: 00:00 mg total) Hospita 25 MG 00 :00 by mouth l tablet daily for 30 days. digOXIN No 125ug QD Take 1 Method i (LANOXIN) 11-[address] 125 mcg 00:00: 00:00 (125 [...] (LANOXIN) 11-[address] 125 mcg 00:00: 00:00 (125 [...] (LANOXIN) 11-[address] 125 mcg 00:00: 00:00 (125 [...] Take 1 Meth che (Lasix) 40 - 03-06 tablet (40 st mg tablet 00:00: [...] Q.5D Take 1 Me thodi (COREG) 2-03 -[address] 6.25 MG 00:00: 05:59 (6.25 [...] Q.5D Take 1 Me thodi (COREG) 2-11 28-[address] 6.25 MG 00:00: 05:59 (6.25 [...] times a day for 30 days. lisinopriL 2021-2021- No 10mg Q.5D Take 1 Meth che (PRINIVIL) 2-03 tablet (10 st 10 mg 00:00: 00:00 mg total) Hospit a tablet 00 :00 by mouth 2 l (two) times a day for 30 days. furosemide 2021-2021- No 40mg Q.5D Take 1 Meth che (Lasix) 40 -11 27-03 tablet (40 st mg tablet 00:00: 00:00 [...] a day for 30 days. lisinopriL 2022-0 2022- No 10mg Q.5D Take 1 Meth [...] a day for 30 days. lisinopriL 2022-0 2022- No 10mg Q.5D Take 1 Meth [...] a day for 30 days. lisinopriL 2022-0 2022- No 10mg Q.5D Take 1 Meth [...] a day for 30 days. lisinopriL 2022-0 2022- No 10mg Q.5D Take 1 Meth che (PRINIVIL) 2- 02-03 tablet (10 st 10 mg 00:00: 00:00 mg total) Hospit a tablet 00 :00 by mouth 2 l (two) times a day for 30 days. furosemide 2021-0 2022- No 40mg Q.5D Take 1 Meth che (Lasix) 40 2- 02-03 tablet (40 st mg tablet 00:00: 00:00 mg total) Ho spita 00 :00 by mouth 2 l (two) times a day for 30 days. carvediloL 2022-0 2022- No 6.25mg Q.5D Take 1 Me thodi (COREG) 2-03 02-[address] 6.25 MG 00:00: 00:00 (6.25 mg Hospi ta tablet 00 :00 total) by l mouth 2 (two) times a day for 30 days. lisinopriL 2022-0 2022- No 10mg Q.5D Take 1 Meth che (PRINIVIL) 2- 02-03 tablet (10 st 10 mg 00:00: 00:00 mg total) Hospit a tablet 00 :00 by mouth 2 l (two) times a day for 30 days. furosemide 2022-0 2022- No 40mg Q.5D Take 1 Meth che (Lasix) 40 2-03 02-03 tablet (40 st mg tablet 00:00: 00:00 mg total) Ho spita 00 :00 by mouth 2 l (two) times a day for 30 days. carvediloL 2022-0 2022- No 6.25mg Q.5D Take 1 Me thodi (COREG) 2-03 02-[address] 6.25 MG 00:00: 00:00 (6.25 mg Hospi ta tablet 00 :00 total) by l mouth 2 (two) times a day for 30 days. lisinopriL 2022-0 2022- No 10mg Q.5D Take 1 Meth ceh (PRINIVIL) 2- 02-03 tablet (10 st 10 [...] a day for 30 days. lisinopriL 2022-0 2- No 10mg Q.5D Take 1 Meth che (PRINIVIL) 2- 02-03 tablet (10 st 10 mg 00:00: 00:00 mg total) Hospit a tablet 00 :00 by mouth 2 l (two) times a day for 30 days. furosemide 2021-0 2022- No 40mg Q.5D Take 1 Meth che (Lasix) 40 2- 02-03 tablet (40 st mg tablet 00:00: 00:00 mg total) Ho spita 00 :00 by mouth 2 l (two) times a day for 30 days. carvediloL 2022-0 2022- No 6.25mg Q.5D Take 1 Me thodi (COREG) 2-03 02-[address] 6.25 MG 00:00: 00:00 (6.25 mg Hospi ta tablet 00 :00 total) by l mouth 2 (two) times a day for 30 days. lisinopriL 202-0 2022- No 10mg Q.5D Take 1 Meth che (PRINIVIL) 10-31-03 tablet (10 st 10 mg 00:00: 00:00 mg total) Hospit a tablet 00 :00 by mouth 2 l (two) times a day for 30 days. furosemide 2021-0 2022- No 40mg Q.5D Take 1 Meth [...] Q.5D Take 1 Meth che (Lasix) 40 10-31- tablet (40 st mg tablet 00:00: 00:00 mg total) Ho spita 00 :00 by mouth 2 l (two) times a day for 30 days. sucralfate 2022-0 2022- No 1g Q.25D Take 1 g M ethodi (CARAFATE) 10-[address] 1 gram 11:38: 00:00 (four) Hospita tablet 02 :00 times a l day before meals and nightly. sucralfate 2022-0 2022- No 1g Q.25D Take 1 g M ethodi (CARAFATE) 10-[address] 1 gram 11:38: 00:00 (four) Hospita tablet 02 :00 times a l day before meals and nightly. sucralfate 2022-0 2022- No 1g Q.25D Take 1 g M ethodi (CARAFATE) 10-[address] 1 gram 11:38: 00:00 (four) Hospita tablet 02 :00 times a l day before meals and nightly. sucralfate 2022-0 2022- No 1g Q.25D Take 1 g M ethodi (CARAFATE) 10-[address] 1 gram 11:38: 00:00 (four) Hospita tablet 02 :00 times a l day before meals and nightly. sucralfate 2022-0 2022- No 1g Q.25D Take 1 g M ethodi (CARAFATE) 10-[address] 1 gram 11:38: 00:00 (four) Hospita tablet 02 :00 times a l day before meals and nightly. sucralfate 2022-0 2022- No 1g Q.25D Take 1 g M ethodi (CARAFATE) 10-[address] 1 gram 11:38: 00:00 (four) Hospita tablet 02 :00 times a l day before meals and nightly. sucralfate 2022-0 2022- No 1g Q.25D Take 1 g M ethodi (CARAFATE) 10-[address] 1 gram 11:38: 00:00 (four) Hospita tablet 02 :00 times a l day before meals and nightly. sucralfate 2022-0 2022- No 1g Q.25D Take 1 g M ethodi (CARAFATE) 10-[address] 1 gram 11:38: 00:00 (four) Hospita tablet 02 :00 times a l day before meals and nightly. sucralfate 2022-0 2022- No 1g Q.25D Take 1 g M ethodi (CARAFATE) 10-[address] 1 gram 11:38: 00:00 (four) Hospita tablet 02 :00 times a l day before meals and nightly. sucralfate 2022-0 2022- No 1g Q.25D Take 1 g M [...] as needed for shortness of breath. albuterol 2-0 Yes 2{puff} Q4H Inhale 2 M ethodi (PROAIR 1-[address] HFA) 90 00:00: every 4 Hospita mcg/actuati 00 (four) l on inhaler hours as needed for shortness of breath. albuterol 2-0 Yes 2{puff} Q4H Inhale 2 M ethodi (PROAIR 1-[address] HFA) 90 00:00: every 4 Hospita mcg/actuati 00 (four) l on inhaler hours as needed for shortness of breath. lisinopriL 2022-0 2022- No 5mg QD Take 5 mg M ethodi (PRINIVIL) 10-[address] 5 mg tablet 00:00: 00:00 daily. Hos janice 00 :00 l lisinopriL 2-0 2022- No 5mg QD Take 5 mg M ethodi (PRINIVIL) 10-[address] 5 mg tablet 00:00: 00:00 daily. Hos janice 00 :00 l lisinopriL 2-0 2022- No 5mg QD Take 5 mg M ethodi (PRINIVIL) 10-[address] 5 mg tablet 00:00: 00:00 daily. Hos janice 00 :00 l lisinopriL 2022-0 2022- No 5mg QD Take 5 mg M ethodi (PRINIVIL) 10-[address] 5 mg tablet 00:00: 00:00 daily. Hos janice 00 :00 l lisinopriL 2022-0 2022- No 5mg QD Take 5 mg M ethodi (PRINIVIL) 10-[address] 5 mg tablet 00:00: 00:00 daily. Hos janice 00 :00 l lisinopriL 2022-0 2022- No 5mg QD Take 5 mg M ethodi (PRINIVIL) 10-[address] 5 mg tablet 00:00: 00:00 daily. Hos janice 00 :00 l lisinopriL 2022-0 2022- No 5mg QD Take 5 mg [...] Systolic blood 2021-10-31 16:58:58 125 mm[Hg] [facility] pressure Diastolic blood 2021-10-31 16:58:58 78 mm[Hg] [facility] pressure Heart rate 2021-10-31 16:58:58 102 /min [facility] Body temperature 2021-10-31 16:58:58 36.89 Vandana [facility] Respiratory rate 2021-10-31 16:58:58 17 /min [facility] Oxygen saturation in 2021-10-31 16:58:58 95 /min [facility] Arterial blood by Pulse oximetry Body weight 2021-10-31 10:22:48 99.973 kg [facility] BMI 2021-10-31 10:22:48 36.68 kg/m2 [facility] Body height 2021-10-28 00:57:00 165.1 cm [facility] Procedures Procedure Date / Time Performing Clinician Source Performed POC GLUCOSE 2021-10-31 17:00:00 [facility] POC GLUCOSE 2021-10-31 14:02:00 Dipika [facility] B NATRIURETIC PEPTIDE 2021-10-31 11:00:[address] [facility] BASIC METABOLIC PANEL 2021-10-31 11:00:[address] [facility] HC COMPLETE BLD COUNT 2021-10-31 11:00:00 Marine Webster [facility] W/AUTO DIFF [facility] MAGNESIUM LEVEL 2021-10-31 11:00:00 Marine Webster [facility] FUN[facility] 2021-10-31 11:00:00 Marine Webster [facility] ESTIMATED GFR 2021-10-31 11:00:00 Marine Webster [facility] POC GLUCOSE 2021-10-31 03:00:00 Marine Webster [facility] [place] POC GLUCOSE 2021-10-30 23:15:00 Marine Webster [facility] [place] POC GLUCOSE 2021-10-30 19:23:00 Marine Webster [facility] [place] POC GLUCOSE 2021-10-30 13:49:00 [facility] B NATRIURETIC PEPTIDE 2021-10-30 11:21:[address] [facility] BASIC METABOLIC PANEL 2021-10-30 11:21:[address] [facility] HC COMPLETE BLD COUNT 2021-10-30 11:21:00 Marine Webster [facility] W/AUTO DIFF [facility] MAGNESIUM LEVEL 2021-10-30 11:21:00 Marine Webster Ho spital [facility] HEPATIC FUNCTION PANEL 2021-10-30 11:21:00 Marine Webster [facility] ESTIMATED GFR 2021-10-30 11:21:00 Marine Webster Ho spital [place] POC GLUCOSE 2021-10-30 03:10:00 Marine Webster spital [place] POC GLUCOSE 2021-10-29 23:57:00 Marine Webster [facility] [place] POC GLUCOSE 2021-10-29 18:44:00 Marine Webster [facility] [place] POC GLUCOSE 2021-10-29 13:49:00 Marine Webster [facility] ZZC[facility] ANTI-SPIKE IGG 2021-10-29 11:00:[address] [facility] ANTIBODY TITER Chris HEMOGLOBIN A1C 2021-10-29 11:00:00 Romulo Doziertal B NATRIURETIC PEPTIDE 2021-10-29 11:00:[address] [facility] BASIC METABOLIC PANEL 2021-10-29 11:00:[address] [facility] HC COMPLETE BLD COUNT 2021-10-29 11:00:00 Marine Webster [facility] W/AUTO DIFF [facility] MAGNESIUM LEVEL 2021-10-29 11:00:00 Marine Webster Ho spital [facility] HEPATIC FUNCTION PANEL 2021-10-29 11:00:00 Marine Webster [facility] ZZCOVID-19 SEROLOGY 2021-10-29 11:00:00 [facility]ILL[facility] Chris ESTIMATED GFR 2021-10-29 11:00:00 Marine Webster spital [place] POC GLUCOSE 2021-10-29 05:06:00 Marine Webster spital [place] POC GLUCOSE 2021-10-29 00:04:00 Marine Webster spital [place] POC GLUCOSE 2021-10-28 18:10:00 Marine Webster Ho [facility] [place] POC GLUCOSE 2021-10-28 14:39:00 [facility] COMPLETE, W CONTRAST, 2021-10-28 14:00:00 [facility] W DOPPLER ([id number]) BLOOD CULTURE, AEROBIC & 2021-10-28 12:19:00 [facility] Tan R. HC COMPLETE BLD COUNT 2021-10-28 12:19:00 [facility] W/AUTO DIFF COMPREHENSIVE METABOLIC 2021-10-28 12:19:00 [facility] PANEL ESTIMATED GFR 2021-10-28 12:19:00 [facility] US HEPATIC 2021-10-28 08:53:00 [facility] VENOUS BLOOD GAS 2021-10-28 07:24:00 [facility] BLOOD CULTURE, AEROBIC & 2021-10-28 07:23:00 [facility] ANAEROBIC Tan R. TROPONIN T 2021-10-28 07:23:00 [facility] HEMOGLOBIN A1C 2021-10-28 07:23:00 [facility] LIPID PANEL 2021-10-28 07:23:00 [facility] ACUTE VIRAL HEPATITIS 2021-10-28 07:23:00 [facility] PANEL (HAV, HBV, HCV) POC GLUCOSE 2021-10-28 07:13:00 [facility] STREPTOCOCCUS PNEUMONIAE 2021-10-28 06:27:00 [facility] URINARY ANTIGEN LEGIONELLA URINARY 2021-10-28 06:27:00 [facility] ANTIGEN URINE CULTURE 2021-10-28 06:26:00 [facility] URINALYSIS SCREEN AND 2021-10-28 06:26:00 [facility] MICROSCOPY, WITH REFLEX TO CULTURE TROPONIN T 2021-10-28 06:16:00 [facility] PROCALCITONIN 2021-10-28 06:16:00 [facility] D-DIMER 2021-10-28 06:16:00 [facility] MYCOPLASMA PNEUMONIAE AB, 2021-10-28 06:16:00 [facility] IGM XR CHEST 1 VW PORTABLE 2021-10-28 02:52:53 [facility] Tan Fontaine HC COMPLETE BLD COUNT 2021-10-28 02:24:00 [facility] W/AUTO DIFF Tan Fontaine PROTHROMBIN TIME WITH INR 2021-10-28 02:24:00 [facility] Tan Fontaine PARTIAL THROMBOPLASTIN 2021-10-28 02:24:00 [facility] TIME (PTT) Tan Fontaine COMPREHENSIVE METABOLIC 2021-10-28 02:24:00 [facility] PANEL Tan Fontaine TROPONIN T 2021-10-28 02:24:00 [facility] B NATRIURETIC PEPTIDE 2021-10-28 02:24:00 [facility] Tan Fontaine ESTIMATED GFR 2021-10-28 02:24:00 [facility] spital Tan Fontaine COVID-19 QUALITATIVE 2021-10-28 02:22:00 [facility] RT-PCR Tan Fontaine ECG 12-LEAD 2021-10-28 01:17:17 Halle Mohan [facility] US, echocardiogram, 2020-01-09 00:00:00 [facility] transthoracic, complete, Group w/ color flow Plan of Care Planned Activity Planned Date Details Comments Source Future Scheduled Test 2022-10-13 Pneumococcal Vaccine: [facility] 15:03:58 Pediatrics (0 to 5 Years) and At-Risk Patients (6 to 64 Years) (1 - PCV) [code = Pneumococcal Vaccine: Pediatrics (0 to 5 Years) and At-Risk Patients (6 to 64 Years) (1 - PCV)] Future Scheduled Test 2022-10-13 COVID-19 VACCINE ([address] [place] [address] 15:03:58 Booster for Pfizer series) [code = COVID-19 VACCINE (3 - Booster for Pfizer series)] Future Scheduled Test 2022-10-13 INFLUENZA VACCINE [facility] 15:03:58 [code = INFLUENZA VACCINE] Future Scheduled Test 2022-10-13 Pneumococcal Vaccine: [facility] 15:03:58 Pediatrics (0 to 5 Years) and At-Risk Patients (6 to 64 Years) (1 - PCV) [code = Pneumococcal Vaccine: Pediatrics (0 to 5 Years) and At-Risk Patients (6 to 64 Years) (1 - PCV)] Future Scheduled Test 2022-10-13 COVID-19 VACCINE ([address] [place] [address] 15:03:58 Booster for Pfizer series) [code = COVID-19 VACCINE (3 - Booster for Pfizer series)] Future Scheduled Test 2022-10-13 INFLUENZA VACCINE [facility] 15:03:58 [code = INFLUENZA VACCINE] Future Scheduled Test 2022-10-13 Pneumococcal Vaccine: [facility] 15:03:58 Pediatrics (0 to 5 Years) and At-Risk Patients (6 to 64 Years) (1 - PCV) [code = Pneumococcal Vaccine: Pediatrics (0 to 5 Years) and At-Risk Patients (6 to 64 Years) (1 - PCV)] Future Scheduled Test 2022-10-13 COVID-19 VACCINE ([address] [place] [address] 15:03:58 Booster for Pfizer series) [code = COVID-19 VACCINE (3 - Booster for Pfizer series)] Future Scheduled Test 2022-10-13 INFLUENZA VACCINE [facility] 15:03:58 [code = INFLUENZA VACCINE] Future Scheduled Test 2022-10-13 Pneumococcal Vaccine: [facility] 15:03:58 Pediatrics (0 to 5 Years) and At-Risk Patients (6 to 64 Years) (1 - PCV) [code = Pneumococcal Vaccine: Pediatrics (0 to 5 Years) and At-Risk Patients (6 to 64 Years) (1 - PCV)] Future Scheduled Test 2022-10-13 COVID-19 VACCINE ([address] [place] [address] 15:03:58 Booster for Pfizer series) [code = COVID-19 VACCINE (3 - Booster for Pfizer series)] Future Scheduled Test 2022-10-13 INFLUENZA VACCINE [facility] 15:03:58 [code = INFLUENZA VACCINE] Future Scheduled Test 2022-10-13 Pneumococcal Vaccine: [facility] 15:03:58 Pediatrics (0 to 5 Years) and At-Risk Patients (6 to 64 Years) (1 - PCV) [code = Pneumococcal Vaccine: Pediatrics (0 to 5 Years) and At-Risk Patients (6 to 64 Years) (1 - PCV)] Future Scheduled Test 2022-10-13 COVID-19 VACCINE ([address] [place] [address] 15:03:58 Booster for Pfizer series) [code = COVID-19 VACCINE (3 - Booster for Pfizer series)] Future Scheduled Test 2022-10-13 INFLUENZA VACCINE [facility] 15:03:58 [code = INFLUENZA VACCINE] Future Scheduled Test 2022-10-13 Pneumococcal Vaccine: [facility] 15:03:58 Pediatrics (0 to 5 Years) and At-Risk Patients (6 to 64 Years) (1 - PCV) [code = Pneumococcal Vaccine: Pediatrics (0 to 5 Years) and At-Risk Patients (6 to 64 Years) (1 - PCV)] Future Scheduled Test 2022-10-13 COVID-19 VACCINE ([address] [place] [address] 15:03:58 Booster for Pfizer series) [code = COVID-19 VACCINE (3 - Booster for Pfizer series)] Future Scheduled Test 2022-10-13 INFLUENZA VACCINE [facility] 15:03:58 [code = INFLUENZA VACCINE] Future Scheduled Test 2022-10-13 Pneumococcal Vaccine: [facility] 15:03:58 Pediatrics (0 to 5 Years) and At-Risk Patients (6 to 64 Years) (1 - PCV) [code = Pneumococcal Vaccine: Pediatrics (0 to 5 Years) and At-Risk Patients (6 to 64 Years) (1 - PCV)] Future Scheduled Test 2022-10-13 COVID-19 VACCINE ([address] [place] [address] 15:03:58 Booster for Pfizer series) [code = COVID-19 VACCINE (3 - Booster for Pfizer series)] Future Scheduled Test 2022-10-13 INFLUENZA VACCINE [facility] 15:03:58 [code = INFLUENZA VACCINE] Future Scheduled Test 2022-09-14 Pneumococcal Vaccine: [facility] 09:01:17 Pediatrics (0 to 5 Years) and At-Risk Patients (6 to 64 Years) (1 - PCV) [code = Pneumococcal Vaccine: Pediatrics (0 to 5 Years) and At-Risk Patients (6 to 64 Years) (1 - PCV)] Future Scheduled Test 2022-09-14 COVID-19 VACCINE ([address] [place] [address] 09:01:17 Booster for Pfizer series) [code = COVID-19 VACCINE (3 - Booster for Pfizer series)] Future Scheduled Test 2022-09-14 INFLUENZA VACCINE [facility] 09:01:17 [code = INFLUENZA VACCINE] Future Scheduled Test 2022-09-14 Pneumococcal Vaccine: [facility] 09:01:17 Pediatrics (0 to 5 Years) and At-Risk Patients (6 to 64 Years) (1 - PCV) [code = Pneumococcal Vaccine: Pediatrics (0 to 5 Years) and At-Risk Patients (6 to 64 Years) (1 - PCV)] Future Scheduled Test 2022-09-14 COVID-19 VACCINE ([address] [place] [address] 09:01:17 Booster for Pfizer series) [code = COVID-19 VACCINE (3 - Booster for Pfizer series)] Future Scheduled Test 2022-09-14 INFLUENZA VACCINE [facility] 09:01:17 [code = INFLUENZA VACCINE] Future Scheduled Test 2022-08-18 HEPATITIS B VACCINES [facility] 15:33:44 (1 of 3 - 3-dose series) [code = HEPATITIS B VACCINES (1 of 3 - 3-dose series)] Future Scheduled Test 2022-08-18 Pneumococcal Vaccine: [facility] 15:33:44 Pediatrics (0 to 5 Years) and At-Risk Patients (6 to 64 Years) (1 - PCV) [code = Pneumococcal Vaccine: Pediatrics (0 to 5 Years) and At-Risk Patients (6 to 64 Years) (1 - PCV)] Future Scheduled Test 2022-08-18 COVID-19 VACCINE ([address] [place] [address] 15:33:44 Booster for Pfizer series) [code = COVID-19 VACCINE (3 - Booster for Pfizer series)] Future Scheduled Test 2022-08-18 INFLUENZA VACCINE [facility] 15:33:44 [code = INFLUENZA VACCINE] Goal Plan of Care Note [code = 28013-2] Goal Plan of Care Note [code = 61958-7] Instructions [facility] Encounters Start End Encounter Admission Attending Care Care Encounter Source Date/Time Date/Time Type Type Clinicians Facility Department ID 2022-10-22 2022-10-22 Outpatient [facility] [id number] [place] 13:37:50 13:37:50 [id number] F Diamond 2022-10-21 2022-10-21 Outpatient [facility] [id number] [place] 11:05:44 11:05:44 [id number] F Diamond 2022-10-09 2022-10-09 Outpatient [facility] [id number] [place] 08:35:58 08:35:58 [id number] F Diamond 2022-09-18 2022-09-18 Outpatient [id number] 00:00:00 00:00:00 Visit [id number] [id number]-b -[id number] 2022-09-17 2022-09-17 Outpatient [facility] [id number] [place] 13:08:44 13:08:44 [id number] F Diamond 2021-11-13 2021-11-13 Nurse Only Creamer, 1.2.840.1 [id number] Methodi 00:00:00 00:00:[address] 3.430.2.7 Hospit a .3.928496 l .8 2021-11-13 2021-11-13 Nurse Only Creamer, 1.2.840.1 [id number] Methodi 00:00:00 00:00:[address] 3.430.2.7 Hospit a .3.147469 l .8 2021-11-06 2021-11-06 Telemed[facility] [place] 1.2.840.1 [id number] Methodi 11:00:00 11:53:04 ne ntaana, [address]1637.1.[address] Kesha 3.430.2.7 Hospit a .3.890895 l .8 2021-11-06 2021-11-06 [facility] 1.[facility]1 [id number] Methodi 11:00:00 11:53:04 ne ntaana, 07287.1.[address] Kesha 3.430.2.7 Hospit a .3.867591 l .8 2021-11-06 2021-11-06 Travel 1.2.840.1 1.2.052.241 [id number] [id number] Methodi 00:00:00 00:00:[address] 3.430.2.7 0.2.7.3.698 Ho spita .3.240524 084.8 l .8 2021-11-06 2021-11-06 Travel 1.2.840.1 1.2.728.353 2534 [id number] Methodi 00:00:00 00:00:[address] 3.430.2.7 0.2.7.3.698 Ho spita .3.183156 084.8 l .8 2021-10-27 2021-10-31 [facility] [id number] Methodi 19:00:00 13:24:00 Harvinder Hood 76663.1.1 788 [facility] 3.430.2.7 [facility] Angy Bar .3.805870 l .8 2021-10-27 2021-10-31 [facility] 0.1 [id number] Methodi 19:00:00 13:24:00 Encounter Harvinder Scott 74403.1.1 [facility] .3.317351 l .8 2021-10-31 2021-10-31 Travel 1.2.840.1 1.2.739.336 6645 [id number] Methodi 00:00:00 00:00:[address] 3.430.2.7 0.2.7.3.698 Ho spita .3.998260 084.8 l .8 2021-10-31 2021-10-31 Travel 1.2.840.1 1.2.022.070 2021 [id number] Methodi 00:00:00 00:00:[address] 3.430.2.7 0.2.7.3.698 Ho spita .3.689811 084.8 l .8 2020-03-14 2020-03-14 Outpatient REMY [facility] [id number] Lissie 00:00:00 00:00:00 IMAD 397 Method i 2020-03-07 2020-03-07 Outpatient [facility] [id number] Lissie 00:00:00 00:00:00 380 Method i 2020-02-21 2020-02-29 Inpatient [facility] [id number] Liss[place] 00:00:00 00:00:00 743 Method i 2020-02-21 2020-02-21 Outpatient [facility] [id number] [place] 10:44:00 10:44:00 0526 Medical Group 2020-01-26 2020-01-26 Outpatient [facility] [id number] [place] 04:20:00 04:20:00 0430 Medical Group 2020-01-17 2020-01-17 Outpatient [facility] [id number] [place] 06:59:00 06:59:00 0421 Medical Group 2020-01-17 2020-01-17 Santa [facility] [place] - [id number] M atagor 00:00:00 00:00:00 Angélica Vargas Medical [employer] RAILRO[employer]: [address] [facility] [address], [place] [address] , Ph. 2020-01-12 2020-01-12 Outpatient [facility]M [facility] [id number] [place] 07:00:00 07:00:00 0416 Medical Group 2020-01-10 2020-01-10 [place] [facility] [place] - [id number] M at[place] 00:00:00 00:00:00 Ct Singh, Medical Medical [employer] ATTEND[employer] RAILRO[employer]: [address] [facility] [address], [place] [address] , Ph. 2020-01-09 2020-01-09 Outpatient [facility]_M [facility] [id number] [place] 06:48:00 06:48:00 0413 Medical Group 2020-01-09 2020-01-09 Outpatient [facility]_M [facility] [id number] [place] 06:48:00 06:48:00 0414 Medical Group 2020-01-09 2020-01-09 Outpatient Hawkins_M [facility] [id number] [place] 06:48:00 06:48:00 0415 Medical Group 2020-01-09 2020-01-09 Santa [facility] [place] - [id number] M at[place]or 00:00:00 00:00:00 Ct Singh, Medical Medical [employer] ATTEND[employer] RAILROAD: [address] [facility] [address], [place] [address] , Ph. Results Test Description Test Time Test Comments Results Result Comments Source POC glucose 2021-10-31 17:01:36 Test Item Value Reference Range Interpretation Comme nts POC glucose (test code = 159 mg/dL 65-99 H Ope rator Name: Josiah Sutherland 90593-3) ID: [id number] hartable: [facility] Notified casing running machine tender Interpretation (test code = Abnormal 11030-2) [facility] [id number] 17:01:36 Test Item Value Reference Range Interpretation Comments POC glucose (test code = 159 mg/dL 65-99 H Ope rator Name: 14777-2) Josiah Sutherland ID: [id number] able: [facility] Notified casing running machine tender Interpretation (test Abnormal code = 56448-5) [facility]2022-02-03 17:01:36 Test Item Value Reference Range Interpretation Comments POC glucose (test code = 159 mg/dL 65-99 H Ope rator Name: 73693-6) Josiah Sutherland ID: [id number] able: [facility] Notified casing running machine tender Interpretation (test Abnormal code = 95411-3) [facility]2022-02-03 17:01:36 Test Item Value Reference Range Interpretation Comments POC glucose (test code = 159 mg/dL 65-99 H Ope rator Name: 08849-7) Josiah Sutherland ID: [id number] able: TM Notified casing running machine tender Interpretation (test Abnormal code = 80883-9) [facility]2022-02-03 17:01:36 Test Item Value Reference Range Interpretation Comments POC glucose (test code = 159 mg/dL 65-99 H Ope rator Name: [id number]) Josiah Sutherland ID: [id number] able: [facility] Notified casing running machine tender Interpretation (test Abnormal code = 54796-5) [facility]2022-02-03 17:01:36 Test Item Value Reference Range Interpretation Comments POC glucose (test code = 159 mg/dL 65-99 H Ope rator Name: 05802-9) Josiah Sutherland ID: [id number] able: TM Notified casing running machine tender Interpretation (test Abnormal code = 66184-7) [facility]2022-02-03 17:01:36 Test Item Value Reference Range Interpretation Comments POC glucose (test code = 159 mg/dL 65-99 H Ope rator Name: 48956-1) Josiah Sutherland ID: [id number] able: [facility] Notified casing running machine tender Interpretation (test Abnormal code = 77549-1) [facility]2022-02-03 17:01:36 Test Item Value Reference Range Interpretation Comments POC glucose (test code = 159 mg/dL 65-99 H Ope rator Name: 94696-5) Rahman Koko ID: [id number] able: [facility] Notified casing running machine tender Interpretation (test Abnormal code = 87990-2) [facility] [id number] 17:01:36 Test Item Value Reference Range Interpretation Comments POC glucose (test code = 159 mg/dL 65-99 H Ope rator Name: 81875-0) Josiah Sutherland ID: [id number] able: [facility] Notified casing running machine tender Interpretation (test Abnormal code = 30681-3) [facility] [id number] 17:01:36 Test Item Value Reference Range Interpretation Comments POC glucose (test code = 159 mg/dL 65-99 H Ope rator Name: 70672-8) Rahman Koko ID: [id number] able: [facility] Notified casing running machine tender Interpretation (test Abnormal code = 57784-8) [address]2022-01-31 13:18:07 Test Item Value Reference Range Interpretation Comments Ventricular rate (test code = 253) Atrial rate (test code = 255) ID interval (test code = 266) QRSD interval [...] Barillas MD ([id number]) on 10/28/2021 7:18:[address]2022-01-31 13:18:07 Test Item Value Reference Range Interpretation Comments Ventricular rate (test code = 253) Atrial rate (test code = 255) ID interval (test code = 266) QRSD interval [...] Barillas MD ([id number]) on 10/28/2021 7:18:[address]2022-01-31 13:18:07 Test Item Value Reference Range Interpretation Comments Ventricular rate (test code = 253) Atrial rate (test code = 255) ID interval (test code = 266) QRSD interval [...] Barillas MD ([id number]) on 10/28/2021 7:18:[address]2022-01-31 13:18:07 Test Item Value Reference Range Interpretation Comments Ventricular rate (test code = 253) Atrial rate (test code = 255) ID interval (test code = 266) QRSD interval [...] Barillas MD ([id number]) on 10/28/2021 7:18:[address]2022-01-31 13:18:07 Test Item Value Reference Range Interpretation Comments Ventricular rate (test code = 253) Atrial rate (test code = 255) ID interval (test code = 266) QRSD interval [...] Barillas MD ([id number]) on 10/28/2021 7:18:[address]2022-01-31 13:18:07 Test Item Value Reference Range Interpretation Comments Ventricular rate (test code = 253) Atrial rate (test code = 255) ID interval (test code = 266) QRSD interval [...] Barillas MD ([id number]) on 10/28/2021 7:18:[address]2022-01-31 13:18:07 Test Item Value Reference Range Interpretation Comments Ventricular rate (test code = 253) Atrial rate (test code = 255) ID interval (test code = 266) QRSD interval [...] Barillas MD ([id number]) on 10/28/2021 7:18:[address]2022-01-31 13:18:07 Test Item Value Reference Range Interpretation Comments Ventricular rate (test code = 253) Atrial rate (test code = 255) ID interval (test code = 266) QRSD interval [...] Barillas MD ([id number]) on 10/28/2021 7:18:[address]2022-01-31 13:18:07 Test Item Value Reference Range Interpretation Comments Ventricular rate (test code = 253) Atrial rate (test code = 255) ID interval (test code = 266) QRSD interval [...] Barillas MD ([id number]) on 10/28/2021 7:18:06 AM [facility]2022-01-31 06:53:05 Test Item Value Reference Range Interpretation Comments Urine culture (test SEE COMMENT Bacteriu cyril screen code = 5004791) negative. [facility]2022-01-31 06:53:05 Test Item Value Reference Range Interpretation Comments Urine culture (test SEE COMMENT Bacteriu cyril screen code = 8801677) negative. [facility]2022-01-31 06:53:05 Test Item Value Reference Range Interpretation Comments Urine culture (test SEE COMMENT Bacteriu cyril screen code = 1776048) negative. [facility]2022-01-31 06:53:05 Test Item Value Reference Range Interpretation Comments Urine culture (test SEE COMMENT Bacteriu cyril screen code = 5133664) negative. [facility]2022-01-31 06:53:05 Test Item Value Reference Range Interpretation Comments Urine culture (test SEE COMMENT Bacteriu cyril screen code = 8415658) negative. [facility]2022-01-31 06:53:05 Test Item Value Reference Range Interpretation Comments Urine culture (test SEE COMMENT Bacteriu cyril screen code = 2650211) negative. [facility]2022-01-31 06:53:05 Test Item Value Reference Range Interpretation Comments Urine culture (test SEE COMMENT Bacteriu cyril screen code = 3565566) negative. [facility]2022-01-31 06:53:05 Test Item Value Reference Range Interpretation Comments Urine culture (test SEE COMMENT Bacteriu cyril screen code = 4078047) negative. [facility]2022-01-31 06:53:05 Test Item Value Reference Range Interpretation Comments Urine culture (test SEE COMMENT Bacteriu cyril screen code = 7560568) negative. [facility]2022-01-31 06:53:05 Test Item Value Reference Range Interpretation Comments Urine culture (test SEE COMMENT Bacteriu cyril screen code = 3382903) [facility] [Presence] in Respiratory specimen by LEE with probe [id number] 23:57:03 Test Item Value Reference Range Interpretation Comments SARS-CoV-2 (COVID-19) RNA Not detected Not-Detected [Presence] in Respiratory specimen by LEE with probe detection (test code = 88149-2) Whether patient is employed in a healthcare setting (test code = 73004-0) Whether the patient has symptoms related to condition of interest (test code = 76461-9) Patient was hospitalized because of this condition (test code = 17989-9) Whether the patient was admitted to intensive care unit (ICU) for condition of interest (test code = 91144-3) Whether patient resides in a congregate care setting (test code = 41567-1) ELLEN MAHONEY
[2022-10-28 18:37] LABS: Absolute Lymphocytes (CBC) 3.6 K/uL (0.7-4.9); Hematocrit 47.8 % (39.6-49.0); MCV 80.8 fL (80-100); MPV 9.8 fL (7.6-11.3); RBC Red Blood Cell Count 5.91 M/uL (4.33-5.43)
[2022-10-28 18:38] LABS: Protime INR 1.02
[2022-10-28 18:50] LABS: SARS-CoV-2 Antigen Rapid Res Negative (Negative)
[2022-10-28 18:53] LABS: Albumin 3.2 g/dL (3.4-5.0); Bilirubin Direct 0.2 mg/dL (0-0.2); Bilirubin Total 0.5 mg/dL (0.2-1.0); Magnesium 1.9 mg/dL (1.6-2.4); Protein, Total 7.3 g/dL (6.4-8.2); Troponin High Sensitivity 21.9 pg/mL (<58.9)
--- NOTE | 2022-10-28 19:19 | RAD REPORT ---
EXAM DESCRIPTION: RAD - Chest Single View - 10/28/2022 7:02 pm CLINICAL HISTORY: SOB Chest pain. COMPARISON: Chest Single View dated 10/13/2022; Chest Pa And Lat (2 Views) dated 08/30/2022; Chest Sin gle View dated 10/25/2021 FINDINGS: Portable technique limits examination quality. Mild interstitial pulmonary edema. The heart is enlarged. No displaced fractures. IMPRESSION: Mild CHF.
[2022-10-28] MEDS ORDERED: LEVALBUTEROL 1.25 MG/3 ML NEB ONE (20:05)
[2022-10-28] MEDS ORDERED: FUROSEMIDE 40 MG/4 ML VIAL ONE ×2 (20:06→20:54)
[2022-10-28] MEDS ORDERED: ONDANSETRON 4 MG/2 ML VIAL ONE (20:54)
--- NOTE | 2022-10-28 21:11 | RAD REPORT ---
EXAM DESCRIPTION: CT - Chest For Pe Angio - 10/28/2022 9:03 pm CLINICAL HISTORY: Chest pain. sob, recent hospitalization COMPARISON: Chest For Pe Angio dated 10/13/2022 TECHNIQUE: CT angiogram of the pulmonary arteries was performed with MIP. All CT scans are performed using dose optimization technique as appropriate and may include automated exposure control or mA/KV adjustment according to patient size. FINDINGS: No evidence of pulmonary thromboembolism. No acute aortic finding demonstrated. Cardiomegaly is present. The lungs are clear. No significant pericardial or pleural fluid. No concerning bony finding. IMPRESSION: No evidence of pulmonary thromboembolism. Cardiomegaly is present.
--- NOTE | 2022-10-28 21:58 | EDPHYS ---
Physician Documentation [facility] Name: Sabino Simon Age: 27 yrs Sex: Male : 1995 Arrival Date: 10/28/2022 Time: 17:37 Bed 17 Private MD: ED Physician Rupert Barahona HPI: 10/28 17:51 This 27 yrs old Male presents to ER via EMS with complaints of Shortness Of Breath. [facility] 17:51 The patient has shortness of breath at rest. Onset: The symptoms/episode began/occurred jmm gradually, 2 day(s) ago. Duration: The symptoms are continuous. The patient's shortness of breath has no apparent modifying factors. Associated signs and symptoms: Pertinent negatives: chest pain, fever. Is a 27-year-old male with history of newly diagnosed CHF the presents emerged part with complaints of shortness of breath which has been worsening over the past 2 days. Patient states that he has been taking medication as directed. Denies fever.. Historical: - Allergies: 18:03 No Known Allergies; vg1 - Home Meds: 18:03 furosemide 40 mg Oral tab 1 tab once daily [Active]; lisinopril 5 mg Oral tab 1 tab vg1 once daily [Active]; metoprolol tartrate 25 mg Oral tab 1 tab once daily [Active]; potassium chloride 20 mEq Oral TbER 1 tab 2 times per day [Active]; Aspirin Oral [Active]; - PMHx: 18:03 Congestive heart failure; depressive disorder; Hypertensive disorder; Anxiety; vg1 - PSHx: 18:03 None; vg1 - Immunization history:: Client reports receiving the 2nd dose of the Covid vaccine. - Social history:: Smoking status: Patient denies any tobacco usage or history of. ROS: 17:51 Constitutional: Negative for fever, chills, and weight loss, Cardiovascular: Negative jmm for chest pain, palpitations, and edema. 17:51 Respiratory: Positive for shortness of breath. 17:51 All other systems are negative. Exam: 17:51 Constitutional: This is a well developed, well nourished patient who is awake, alert, jmm and in no acute distress. Head/Face: atraumatic. Eyes: EOMI, no conjunctival erythema appreciated ENT: Moist Mucus Membranes Neck: Trachea midline, Supple Chest/axilla: Normal chest wall appearance and motion. Cardiovascular: Regular rate and rhythm. No edema appreciated Respiratory: Normal respirations, no respiratory distress appreciated Abdomen/GI: Non distended Back: Normal ROM Skin: General appearance color normal MS/ Extremity: Moves all extremities, no obvious deformities appreciated, no edema noted to the lower extremities Neuro: Awake and alert Psych: Behavior is normal, Mood is normal, Patient is cooperative and pleasant 22:02 ECG was reviewed by the Attending Physician. cp Vital Signs: 18:01 BP 142 / 101; Pulse 103; Resp 18; Temp 97.7(TE); Pulse Ox 98% on R/A; Weight 92.99 kg; vg1 Height 5 ft. 6 in. (167.64 cm); Pain 0/10; 19:42 BP 138 / 93; Pulse 112; Resp 18; Temp 98.6; Pulse Ox 100% on R/A; Weight 92.99 kg; rv1 Height 5 ft. 6 in. (167.64 cm); Pain 0/10; 20:12 BP 134 / 95; Pulse 60; Resp 17 S; Pulse Ox 98% on R/A; lg3 22:23 BP 122 / 80; Pulse 106; Resp 18 S; Pulse Ox 100% on R/A; lg3 19:42 Body Mass Index 33.09 (92.99 kg, 167.64 cm) rv1 MDM: 17:[address] [facility] 20:38 Data reviewed: vital signs, nurses notes. ED course: . [facility] 20:44 I considered the following discharge prescriptions or medication management in the [facility] emergency department Medications were administered in the Emergency Department. See MAR. Independent interpretation of the following test(s) in the Emergency Department X-Ray: My interpretation is no infiltrate appreciated. 21:54 ED course: VSS. Patient reports shortness of breath improved after IV Lasix. Taking 40 cp mg daily, will have increase to 40 mg bid for next 5 days and discharge to home for continued monitoring. 10/28 17:52 Order name: Basic Metabolic Panel; Complete Time: 18:54 [facility] 10/28 17:52 Order name: CBC with Diff; Complete Time: 18:45 [facility] 10/28 17:52 Order name: LFT's; Complete Time: 18:54 [facility] 10/28 17:52 Order name: Magnesium; Complete Time: 18:54 [facility] 10/28 17:52 Order name: NT PRO-BNP; Complete Time: 18:54 [facility] 10/28 21:15 Interpretation: Abnormal: NT PRO-BNP 3127. 10/28 17:52 Order name: PT-INR; Complete Time: 18:45 [facility] 10/28 17:52 Order name: Troponin HS; Complete Time: 18:54 [facility] 10/28 17:52 Order name: XRAY Chest (1 view); Complete Time: 19:22 [facility] 10/28 17:52 Order name: SARS RAPID; Complete Time: 18:51 [facility] 10/28 20:47 Order name: CT Chest For PE Angio; Complete Time: 21:15 [facility] 10/28 21:15 Interpretation: Report reviewed. 10/28 17:52 Order name: EKG; Complete Time: 17:53 [facility] 10/28 17:52 Order name: Cardiac monitoring; Complete Time: 20:02 [facility] 10/28 17:52 Order name: EKG - Nurse/Tech; Complete Time: 20:02 [facility] 10/28 17:52 Order name: IV Saline Lock; Complete Time: 18:46 [facility] 10/28 17:52 Order name: Labs collected and sent; Complete Time: 18:46 [facility] 10/28 17:52 Order name: O2 Per Protocol; Complete Time: 18:18 [facility] 10/28 17:52 Order name: O2 Sat Monitoring; Complete Time: 18:18 jmm EC:02 Rate is 111 beats/min. Rhythm is regular. MA interval is normal. QRS interval is cp normal. QT interval is normal. Interpreted by me. Reviewed by me. Administered Medications: 20:12 Drug: Lasix (furosemide) 40 mg Route: IVP; Site: right antecubital; lg3 22:22 Follow up: Response: No adverse reaction lg3 20:12 Drug: Xopenex (levalbuterol) (3) 1.25 mg Route: Inhalation; lg3 20:54 Drug: Lasix (furosemide) 40 mg Route: IVP; Site: right antecubital; lg3 22:22 Follow up: Response: No adverse reaction lg3 20:54 Drug: Zofran (Ondansetron) 4 mg Route: IVP; Site: right antecubital; lg3 22:22 Follow up: Response: No adverse reaction lg3 Disposition Summary: 10/28/22 21:58 Discharge Ordered Location: Home cp Problem: an acute exacerbation cp Symptoms: have improved cp Condition: Stable cp Diagnosis - Unspecified combined systolic (congestive) and diastolic (congestive) heart failure cp Followup: cp - With: Private Physician - When: 2 - 3 days - Reason: Worsening of condition Discharge Instructions: - Discharge Summary Sheet cp - Heart Failure, Diagnosis cp Forms: - Medication Reconciliation Form cp - Thank You Letter cp - Antibiotic Education cp - Prescription Opioid Use cp Signatures: Dispatcher [employer] EDMS Saji Mojica PA PA jmm Page, Corey, PA PA cp Jasmyn Jo RN RN lg3 Celena Miller RN RN vg1
--- NOTE | 2022-10-28 21:58 | ER ---
Nurse's Notes [facility] [place] Name: Sabino Simon Age: 27 yrs Sex: Male : 1995 Arrival Date: 10/28/2022 Time: 17:37 Bed 17 Private MD: Diagnosis: Unspecified combined systolic (congestive) and diastolic (congestive) heart failure Presentation: 10/28 17:38 Chief complaint: Patient states: SOB when walking; denies CP; Pt appears to be wearing vg1 a Life Vest placed on 10/21/22, 'portable defibrillator" EMS states: SOB X 2 days;. Onset of symptoms was October 26, 2022. 17:38 Method Of Arrival: EMS: [facility] vg1 18:01 Coronavirus screen: Vaccine status: Patient reports receiving the 2nd dose of the covid vg1 vaccine. Client denies travel out of the [place] in the last 14 days. Ebola Screen: Patient negative for fever greater than or equal to 101.5 degrees Fahrenheit, and additional compatible Ebola Virus Disease symptoms. Risk Assessment: Do you want to hurt yourself or someone else?. 18:01 Acuity: RODRIGO 3 vg1 18:01 Initial Sepsis Screen: Does the patient meet any 2 criteria? HR > 90 bpm. Does the vg1 patient have a suspected source of infection? No. Patient's initial sepsis screen is negative. Triage Assessment: 18:01 General: Appears in no apparent distress. uncomfortable, Behavior is cooperative, vg1 anxious. Pain: Denies pain. Respiratory: Reports shortness of breath on exertion Onset: The symptoms/episode began/occurred x 2 days, the patient has mild shortness of breath. Historical: - Allergies: 18:03 No Known Allergies; vg1 - Home Meds: 18:03 furosemide 40 mg Oral tab 1 tab once daily [Active]; lisinopril 5 mg Oral tab 1 tab vg1 once daily [Active]; metoprolol tartrate 25 mg Oral tab 1 tab once daily [Active]; potassium chloride 20 mEq Oral TbER 1 tab 2 times per day [Active]; Aspirin Oral [Active]; - PMHx: 18:03 Congestive heart failure; depressive disorder; Hypertensive disorder; Anxiety; vg1 - PSHx: 18:03 None; vg1 - Immunization history:: Client reports receiving the 2nd dose of the Covid vaccine. - Social history:: Smoking status: Patient denies any tobacco usage or history of. Screenin:12 [facility] ED Fall Risk Assessment (Adult) History of falling in the last 3 months, lg3 including since admission No falls in past 3 months (0 pts). Abuse screen: Denies threats or abuse. Denies injuries from another. Nutritional screening: No deficits noted. Tuberculosis screening: No symptoms or risk factors identified. Assessment: 20:12 General: Appears in no apparent distress. comfortable, Behavior is calm, cooperative. lg3 Pain: Denies pain. Neuro: No deficits noted. [place] Agitation-Sedation Scale (RASS): 0 - Alert and Calm Level of Consciousness is awake, alert, obeys commands, Oriented to person, place, time, situation. Cardiovascular: Capillary refill < 3 seconds Clubbing of nail beds is absent JVD is absent Patient's skin is warm and dry. Rhythm is sinus tachycardia Parent/caregiver reports patient has had life vest in place for approximately 1 week. Respiratory: Reports shortness of breath Airway is patent Trachea midline Respiratory effort is even, unlabored, Respiratory pattern is regular, symmetrical. GI: No deficits noted. No signs and/or symptoms were reported involving the gastrointestinal system. Abdomen is round non-distended. : No deficits noted. No signs and/or symptoms were reported regarding the genitourinary system. EENT: No deficits noted. No signs and/or symptoms were reported regarding the EENT system. Derm: No deficits noted. No signs and/or symptoms reported regarding the dermatologic system. Skin is intact, is healthy with good turgor, Skin is dry, Skin is normal. Musculoskeletal: No deficits noted. No signs and/or symptoms reported regarding the musculoskeletal system. Circulation, motion, and sensation intact. Range of motion: intact in all extremities. 22:22 Reassessment: Patient appears in no apparent distress at this time. No changes from lg3 previously documented assessment. Patient and/or family updated on plan of care and expected duration. Pain level reassessed. Patient is alert, oriented x 3, equal unlabored respirations, skin warm/dry/pink. Patient denies pain at this time. Patient states feeling better. Patient states symptoms have improved. Vital Signs: 18:01 BP 142 / 101; Pulse 103; Resp 18; Temp 97.7(TE); Pulse Ox 98% on R/A; Weight 92.99 kg; vg1 Height 5 ft. 6 in. (167.64 cm); Pain 0/10; 19:42 BP 138 / 93; Pulse 112; Resp 18; Temp 98.6; Pulse Ox 100% on R/A; Weight 92.99 kg; rv1 Height 5 ft. 6 in. (167.64 cm); Pain 0/10; 20:12 BP 134 / 95; Pulse 60; Resp 17 S; Pulse Ox 98% on R/A; lg3 22:23 BP 122 / 80; Pulse 106; Resp 18 S; Pulse Ox 100% on R/A; lg3 19:42 Body Mass Index 33.09 (92.99 kg, 167.64 cm) rv1 ED Course: 17:37 Patient arrived in ED. vg1 17:39 Saji Mojica PA is PHCP. [facility] 17:39 Rupert Barahona MD is Attending Physician. [facility] 18:01 Arm band placed on. vg1 18:03 Triage completed. vg1 19:04 XRAY Chest (1 view) In Process Unspecified. EDMS 20:12 Patient has correct armband on for positive identification. Placed in gown. Bed in low lg3 position. Call light in reach. Side rails up X 1. Client placed on continuous cardiac and pulse oximetry monitoring. NIBP monitoring applied. ground helper street railway on. Door closed. Noise minimized. Warm blanket given. 20:12 Inserted saline lock: 20 gauge in right antecubital area, using aseptic technique. lg3 20:54 Jasmyn Jo, RN is Primary Nurse. lg3 21:04 CT Chest For PE Angio In Process Unspecified. EDMS 21:14 PHCP role handed off by Saji Mojica PA cp 21:14 Simba Parham PA is PHCP. cp 22:24 No provider procedures requiring assistance completed. IV discontinued, intact, lg3 bleeding controlled, No redness/swelling at site. Pressure dressing applied. Administered Medications: 20:12 Drug: Lasix (furosemide) 40 mg Route: IVP; Site: right antecubital; lg3 22:22 Follow up: Response: No adverse reaction lg3 20:12 Drug: Xopenex (levalbuterol) (3) 1.25 mg Route: Inhalation; lg3 20:54 Drug: Lasix (furosemide) 40 mg Route: IVP; Site: right antecubital; lg3 22:22 Follow up: Response: No adverse reaction lg3 20:54 Drug: Zofran (Ondansetron) 4 mg Route: IVP; Site: right antecubital; lg3 22:22 Follow up: Response: No adverse reaction lg3 Medication: 22:24 VIS not applicable for this client. lg3 Outcome: 21:58 Discharge ordered by . cp 22:24 Discharged to home ambulatory. lg3 22:24 Condition: stable 22:24 Discharge instructions given to patient, Instructed on discharge instructions, follow up and referral plans. Demonstrated understanding of instructions, follow-up care. 22:24 Patient left the ED. lg3 Signatures: Dispatcher [employer] EDMS Saji Mojica PA PA jmm Page, Corey, PA PA cp Gibson, Lacie, RN RN lg3 Celena Miller RN RN vg1 Cinthia Chinchilla rv1 Corrections: (The following items were deleted from the chart) 18:03 17:38 Chief complaint: EMS states: SOB X 2 days; vg1 vg1 18:04 18:01 92.99 kg; Height 5 ft. 6 in.; BMI: 33.0; Pain 0/10; vg1 vg1 18:07 17:38 Chief complaint: Patient states: SOB when walking; denies CP EMS states: SOB X 2 vg1 days; vg1
[2022-10-28 22:33] VITALS: TEMP 98.6
[2022-10-28 22:35] VITALS: BP 122/80; O2SAT 100
== END 2022-10-28 22:24 | disposition home or self-care (01) ==
LOC: ER 17:20
DX: I50.40 Unspecified combined systolic (congestive) and diastolic (congestive) heart failure (principal); I10 Essential (primary) hypertension; Z79.82 Long term (current) use of aspirin
CPT/HCPCS: 36415; 71045; 71275; 80048; 80076; 83735; 83880; 84484; 85025; 85610; 87811; 93005; J1940; J2405; J7614; Q9967

== ENCOUNTER 2022-11-13 09:35 | Emergency (ER) | payer SELFPAY ==
--- OUTSIDE RECORDS SUMMARY | 2022-11-13 09:41 | XMS REPORT | Continuity of Care Document ---
:1995 Author Organization [facility] t Address [address] [place] [address] Care Team Providers Name Role Phone Slade VIDAL, [facility] Primary Care Physician [phone] Jong Luna RN Attending Clinician Unavailable Michelle ACTIVE DIRECTORY ARCHITECT, Kesha Attending Clinician [phone] Buddy VIDAL, Tan Fontaine Attending Clinician Harvinder Scott MD Attending Clinician Marine Webster MD Attending Clinician [phone] Angy Bar DO Attending Clinician MD HARVINDER SCOTT Attending Clinician Unavailable PINKY ALBERTO Attending Clinician Unavailable MARGO CASTANO Attending Clinician Unavailable Zara Attending Clinician Unavailable MARINE WEBSTER Admitting Clinician Unavailable MD HARVINDER SCOTT Admitting Clinician Unavailable MARGO CASTANO Admitting Clinician Unavailable Zara Admitting Clinician Unavailable Payers Payer Name Policy Type Policy Number Effective Date Expiration Date Linda cast[place] [id number] 2019 00:00:00 [place] Problems Condition Condition [...] Added automatic ally from request for surgery [id number] Hypertensi Hypertensi Problem Active M atagor ve [...] Date Stop Date Quantity Comments Source History [facility] Alcohol Std Drinks Hospit al History [facility] Alcohol Binge Hospital Alcohol intake 2021-10-27 2021-10-27 Lifetime [facility] 00:00:00 00:00:00 non-drinker Hospital (finding) Tobacco use and 2020-02-22 2020-02-22 Former smokeless Met hodist exposure 00:00:00 00:00:00 tobacco user Hospital History [facility] 2020-02-22 2020-02-22 1 [facility] Alcohol Frequency 00:00:00 00:00:00 Hospita l Cigarettes smoked 2020-02-22 2020-02-[address] current (pack per 00:00:00 00:00:00 Hospita l day) - Reported History of tobacco 2020-02-21 User of smokeless [facility] use 00:00:00 tobacco Hospital Sex Assigned At [birth year] [facility] 00:00:00 00:00:00 Hospital Smoking Status Start Date [...] Started by his primary care doctor potassium 2021-0 Yes 20meq QD Take 20 Meth che chloride 2-[address] (K-DUR) 20 18:08: mouth Hospit a MEQ CR 20 daily. l tablet Started by his primary care doctor potassium 2021-0 Yes 20meq QD Take 20 Meth che chloride 2-[address] (K-DUR) 20 18:08: mouth Hospit a MEQ CR 20 daily. l tablet Started by his primary care doctor potassium 2021-0 Yes 20meq QD Take 20 Meth che chloride 2-[address] (K-DUR) 20 18:08: mouth Hospit a MEQ CR 20 daily. l tablet Started by his primary care doctor metFORMIN 2021-0 Yes 500mg QD Take 500 [...] tablet 24 daily with l breakfast. carvediloL 2021-2021- No 3.125mg Q.5D Take 3.125 Methodi (COREG) 2-04 02-[address] 3.125 MG 13:24: 00:00 mouth 2 Hospi ta tablet 02 :00 (two) l times a day. potassium 2021-2021- No 20meq Q.5D Take 20 Met hodi chloride 2-04 02-[address] (K-DUR) 20 13:24: 00:00 mouth 2 Hos janice MEQ CR 02 :00 (two) l tablet times a day. carvediloL 2021- No 3.125mg Q.5D Take 3.125 Methodi (COREG) 2-04 02-[address] 3.125 MG 13:24: 00:00 mouth 2 Hospi ta tablet 02 :00 (two) l times a day. potassium 2021-2021- No 20meq Q.5D Take 20 Met hodi chloride 2-04 02-[address] (K-DUR) 20 13:24: 00:00 mouth 2 Hos janice MEQ CR 02 :00 (two) l tablet times a day. carvediloL 2021- No 3.125mg Q.5D Take 3.125 Methodi (COREG) 2-04 02-[address] 3.125 MG 13:24: 00:00 mouth 2 Hospi ta tablet 02 :00 (two) l times a day. potassium 2021-2021- No 20meq Q.5D Take 20 Met hodi chloride 2-04 02-[address] (K-DUR) 20 13:24: 00:00 mouth 2 Hos janice MEQ CR 02 :00 (two) l tablet times a day. carvediloL 2021- No 3.125mg Q.5D Take 3.125 Methodi (COREG) 2-04 02-[address] 3.125 MG 13:24: 00:00 mouth 2 Hospi ta tablet 02 :00 (two) l times a day. potassium 2021-2021- No 20meq Q.5D Take 20 Met hodi [...] :00 (two) l times a day. potassium 2021-2021- No 20meq Q.5D Take 20 Met hodi [...] QD Take 1 Method i (LANOXIN) 2- 03-[address] 125 mcg 00:00: 05:59 (125 [...] 25mg QD Take 1 Met hodi one 11-01-07 tablet (25 st (ALDACTONE) 00:00: 05:59 mg [...] 25mg QD Take 1 Met hodi one 11-01-07 tablet (25 st (ALDACTONE) 00:00: 05:59 mg total) Hospita 25 MG 00 :00 by mouth l tablet daily for 30 days. digOXIN 2021- No 125ug QD Take 1 Method i (LANOXIN) 2-12 29- tablet st 125 mcg 00:00: 05:59 (125 mcg Hospi ta (0.125 mg) 00 :00 total) by l tablet mouth daily for 30 days. spironolact 2021- No 25mg QD Take 1 Met hodi one 2-12 29-07 tablet (25 st (ALDACTONE) 00:00: 05:59 [...] 25mg QD Take 1 Met hodi one 2-12 29-07 tablet (25 st (ALDACTONE) 00:00: 05:59 [...] 125ug QD Take 1 Method i (LANOXIN) 2-[address] 125 mcg 00:00: 00:00 (125 [...] 125ug QD Take 1 Method i (LANOXIN) 11-01-[address] 125 mcg 00:00: 00:00 (125 [...] a day for 30 days. lisinopriL 202-0 Yes 10mg Q.5D Take 1 Metho di (PRINIVIL) 2-03 tablet (10 st 10 mg 00:00: mg total) Hospita tablet 00 by mouth 2 l (two) times a day for 30 days. lisinopriL 2021-0 Yes 10mg Q.5D Take 1 Metho di [...] times a day for 30 days. carvediloL 2021- No 6.25mg Q.5D Take 1 Me [...] Q.5D Take 1 Meth che (Lasix) 40 2-11 28-06 tablet (40 st mg tablet 00:00: 05:59 [...] a day for 30 days. lisinopriL 2-0 2- No 10mg Q.5D Take 1 Meth che (PRINIVIL) 2- 02-03 tablet (10 st 10 mg 00:00: 00:00 mg total) Hospit a tablet 00 :00 by mouth 2 l (two) times a day for 30 days. furosemide 2-0 2022- No 40mg Q.5D Take 1 Meth [...] Take 1 Meth che (Lasix) 40 10-31 02-03 tablet (40 st mg tablet 00:00: 00:00 mg total) Ho spita 00 :00 by mouth 2 l (two) times a day for 30 days. carvediloL 2021-0 2022- No 6.25mg Q.5D Take 1 Me thodi (COREG) - 02- tablet st 6.25 MG 00:00: 00:00 (6.25 [...] times a day for 30 days. carvediloL 2-0 2022- No 6.25mg Q.5D Take 1 Me thodi (COREG) 10-31-[address] 6.25 MG 00:00: 00:00 (6.25 [...] times a day for 30 days. furosemide 2-0 2022- No 40mg Q.5D Take 1 Meth [...] times a day for 30 days. sucralfate 2021-0 2021- No 1g Q.25D Take [...] l day before meals and nightly. sucralfate 2-0 2022- No 1g Q.25D Take 1 g M ethodi (CARAFATE) 10-[address] 1 gram 11:38: 00:00 (four) Hospita tablet 02 :00 times a l day before meals and nightly. sucralfate 2-0 2022- No 1g Q.25D Take 1 g M ethodi (CARAFATE) 10-[address] 1 gram 11:38: 00:00 (four) Hospita tablet 02 :00 times a l day before meals and nightly. sucralfate 2021-0 2022- No 1g Q.25D Take 1 g M ethodi (CARAFATE) 10-[address] 1 gram 11:38: 00:00 (four) Hospita tablet 02 :00 times a l day before meals and nightly. sucralfate 2021-0 2022- No 1g Q.25D Take 1 g M ethodi (CARAFATE) 10-[address] 1 gram 11:38: 00:00 (four) Hospita tablet 02 :00 times a l day before meals and nightly. albuterol 0 Yes 2{puff} Q4H Inhale 2 [...] as needed for shortness of breath. lisinopriL 2-0 2022- No 5mg QD Take [...] Source Systolic blood 2021-10-31 16:58:58 125 mm[Hg] [facility] pressure Diastolic blood 2021-10-31 16:58:58 78 mm[Hg] [facility] pressure Heart rate 2021-10-31 16:58:58 102 /min [facility] Body temperature 2021-10-31 16:58:58 36.89 Vandana [facility] Respiratory rate 2021-10-31 16:58:58 17 /min [facility] Oxygen saturation in 2021-10-31 16:58:58 95 /min [facility] Arterial blood by Pulse oximetry Body weight 2021-10-31 10:22:48 99.973 kg [facility] BMI 2021-10-31 10:22:48 36.68 kg/m2 [facility] Body height 2021-10-28 00:57:00 165.1 cm [facility] Procedures Procedure Date / Time Performing Clinician Source Performed POC GLUCOSE 2021-10-31 17:00:00 Angy Bar [facility] POC GLUCOSE 2021-10-31 14:02:00 [facility] B NATRIURETIC PEPTIDE 2021-10-31 11:00:00 Marine Webster [facility] BASIC METABOLIC PANEL 2021-10-31 11:00:00 Marine Webster [facility] HC COMPLETE BLD COUNT 2021-10-31 11:00:00 Marine Webster [facility] W/AUTO DIFF Located Within [facility] MAGNESIUM LEVEL 2021-10-31 11:00:00 Marine Webster [facility] HE[facility] FUN[facility]EL 2021-10-31 11:00:00 Marine Webster [facility] ESTIMATED GFR 2021-10-31 11:00:00 Marine Webster [facility] POC GLUCOSE 2021-10-31 03:00:00 Marine Webster Ho [facility]ital [facility] POC GLUCOSE 2021-10-30 23:15:00 Marine Webster [facility] [place] POC GLUCOSE 2021-10-30 19:23:00 Marine Webster [facility] [place] POC GLUCOSE 2021-10-30 13:49:00 Marine Webster [facility] B NATRIURETIC PEPTIDE 2021-10-30 11:21:00 Marine Webster [facility] BASIC METABOLIC PANEL 2021-10-30 11:21:00 Marine Webster [facility] HC COMPLETE BLD COUNT 2021-10-30 11:21:00 Marine Webster [facility] W/AUTO DIFF [facility] MAGNESIUM LEVEL 2021-10-30 11:21:00 Marine Webster [facility] HEPATIC FUNCTION PANEL 2021-10-30 11:21:00 Marine Webster [facility] ESTIMATED GFR 2021-10-30 11:21:00 Marine Webster [facility] [place] POC GLUCOSE 2021-10-30 03:10:00 Marine Webster [facility] [place] POC GLUCOSE 2021-10-29 23:57:00 Marine Webster [facility] [place] POC GLUCOSE 2021-10-29 18:44:00 Marine Webster [facility] [place] POC GLUCOSE 2021-10-29 13:49:00 Marine Webster spital [facility] ZZCOVID-19 ANTI-SPIKE IGG 2021-10-29 11:00:00 Fan Montoya [facility] ANTIBODY TITER Chris HEMOGLOBIN A1C 2021-10-29 11:00:00 Romulo Dozier spital B NATRIURETIC PEPTIDE 2021-10-29 11:00:00 Marine Webster [facility] BASIC METABOLIC PANEL 2021-10-29 11:00:00 Marine Webster [facility] HC COMPLETE BLD COUNT 2021-10-29 11:00:00 Marine Webster [facility] W/AUTO DIFF [facility] MAGNESIUM LEVEL 2021-10-29 11:00:00 Marine Webster [facility] HEPATIC FUNCTION PANEL 2021-10-29 11:00:00 Marine Webster [facility] ZZCOVID-19 SEROLOGY 2021-10-29 11:00[facility] Chris ESTIMATED GFR 2021-10-29 11:00:00 Marine Webster [facility]ital [facility] POC GLUCOSE 2021-10-29 05:06:00 Marine Webster [facility] [place] POC GLUCOSE 2021-10-29 00:04:00 Marine Webster [facility] POC GLUCOSE 2021-10-28 18:10:00 Marine Webster [facility] POC GLUCOSE 2021-10-28 14:39:00 Marine Webster [facility] TTE COMPLETE, W CONTRAST, 2021-10-28 14:00:00 [facility] W DOPPLER ([id number]) BLOOD CULTURE, AEROBIC & 2021-10-28 12:19:00 [facility] ANAEROBIC Tan R. HC COMPLETE BLD COUNT 2021-10-28 12:19:00 [facility] W/AUTO DIFF COMPREHENSIVE METABOLIC 2021-10-28 12:19:00 [facility] PANEL ESTIMATED GFR 2021-10-28 12:19:00 [facility] US HEPATIC 2021-10-28 08:53:00 [facility] VENOUS BLOOD GAS 2021-10-28 07:24:00 [facility] BLOOD CULTURE, AEROBIC & 2021-10-28 07:23:00 [facility] ANAEROBIC Tan R. TROPONIN T 2021-10-28 07:23:00 [facility] HEMOGLOBIN A1C 2021-10-28 07:23:00 [facility] LIPID PANEL 2021-10-28 07:23:00 [facility] ACUTE VIRAL HEPATITIS 2021-10-28 07:23:00 [facility] PANEL (HAV, HBV, HCV) POC GLUCOSE 2021-10-28 07:13:00 [facility] STREPTOCOCCUS PNEUMONIAE 2021-10-28 06:27:00 [facility] URINARY ANTIGEN LEGIONELLA URINARY 2021-10-28 06:27:00 [facility] ANTIGEN URINE CULTURE 2021-10-28 06:26:00 [facility] URINALYSIS SCREEN AND 2021-10-28 06:26:00 [facility] MICROSCOPY, WITH REFLEX TO CULTURE TROPONIN T 2021-10-28 06:16:00 [facility] PROCALCITONIN 2021-10-28 06:16:00 [facility] D-DIMER 2021-10-28 06:16:00 [facility] MYCOPLASMA PNEUMONIAE AB, 2021-10-28 06:16:00 [facility] IGM XR CHEST 1 VW PORTABLE 2021-10-28 02:52:53 [facility] Tan Fontaine HC COMPLETE BLD COUNT 2021-10-28 02:24:00 [facility] W/AUTO DIFF Tan Fontaine PROTHROMBIN TIME WITH INR 2021-10-28 02:24:00 [facility] Tan Fontaine PARTIAL THROMBOPLASTIN 2021-10-28 02:24:00 [facility] TIME (PTT) Tan Fontaine COMPREHENSIVE METABOLIC 2021-10-28 02:24:00 [facility] PANEL Tan Fontaine TROPONIN T 2021-10-28 02:24:00 [facility] B NATRIURETIC PEPTIDE 2021-10-28 02:24:00 [facility] Tan Fontaine ESTIMATED GFR 2021-10-28 02:24:00 [facility] Ho spital Tan Fontaine COVID-19 QUALITATIVE 2021-10-28 02:22:00 [facility] RT-PCR Tan Fontaine ECG 12-LEAD 2021-10-28 01:17:17 [facility] US, echocardiogram, 2020-01-09 00:00:00 Rh[facility] transthoracic, complete, Group w/ color flow Plan of Care Planned Activity Planned Date Details Comments Source Future Scheduled Test 2022-10-13 Pneumococcal Vaccine: [facility] 15:03:58 Pediatrics (0 to 5 Years) and At-Risk Patients (6 to 64 Years) (1 - PCV) [code = Pneumococcal Vaccine: Pediatrics (0 to 5 Years) and At-Risk Patients (6 to 64 Years) (1 - PCV)] Future Scheduled Test 2022-10-13 COVID-19 VACCINE ([address] [place] [address] 15:03:58 Booster for Pfizer series) [code = COVID-19 VACCINE (3 - Booster for Pfizer series)] Future Scheduled Test 2022-10-13 INFLUENZA VACCINE [facility] 15:03:58 [code = INFLUENZA VACCINE] Future Scheduled Test 2022-10-13 Pneumococcal Vaccine: [facility] 15:03:58 Pediatrics (0 to 5 Years) and At-Risk Patients (6 to 64 Years) (1 - PCV) [code = Pneumococcal Vaccine: Pediatrics (0 to 5 Years) and At-Risk Patients (6 to 64 Years) (1 - PCV)] Future Scheduled Test 2022-10-13 COVID-19 VACCINE ([address] [place] [address] 15:03:58 Booster for Pfizer series) [code = COVID-19 VACCINE (3 - Booster for Pfizer series)] Future Scheduled Test 2022-10-13 INFLUENZA VACCINE [facility] 15:03:58 [code = INFLUENZA VACCINE] Future Scheduled Test 2022-10-13 Pneumococcal Vaccine: [facility] 15:03:58 Pediatrics (0 to 5 Years) and At-Risk Patients (6 to 64 Years) (1 - PCV) [code = Pneumococcal Vaccine: Pediatrics (0 to 5 Years) and At-Risk Patients (6 to 64 Years) (1 - PCV)] Future Scheduled Test 2022-10-13 COVID-19 VACCINE ([address] [place] [address] 15:03:58 Booster for Pfizer series) [code = COVID-19 VACCINE (3 - Booster for Pfizer series)] Future Scheduled Test 2022-10-13 INFLUENZA VACCINE [facility] 15:03:58 [code = INFLUENZA VACCINE] Future Scheduled Test 2022-10-13 Pneumococcal Vaccine: [facility] 15:03:58 Pediatrics (0 to 5 Years) and At-Risk Patients (6 to 64 Years) (1 - PCV) [code = Pneumococcal Vaccine: Pediatrics (0 to 5 Years) and At-Risk Patients (6 to 64 Years) (1 - PCV)] Future Scheduled Test 2022-10-13 COVID-19 VACCINE ([address] [place] [address] 15:03:58 Booster for Pfizer series) [code = COVID-19 VACCINE (3 - Booster for Pfizer series)] Future Scheduled Test 2022-10-13 INFLUENZA VACCINE [facility] 15:03:58 [code = INFLUENZA VACCINE] Future Scheduled Test 2022-10-13 Pneumococcal Vaccine: [facility] 15:03:58 Pediatrics (0 to 5 Years) and At-Risk Patients (6 to 64 Years) (1 - PCV) [code = Pneumococcal Vaccine: Pediatrics (0 to 5 Years) and At-Risk Patients (6 to 64 Years) (1 - PCV)] Future Scheduled Test 2022-10-13 COVID-19 VACCINE ([address] [place] [address] 15:03:58 Booster for Pfizer series) [code = COVID-19 VACCINE (3 - Booster for Pfizer series)] Future Scheduled Test 2022-10-13 INFLUENZA VACCINE [facility] 15:03:58 [code = INFLUENZA VACCINE] Future Scheduled Test 2022-10-13 Pneumococcal Vaccine: [facility] 15:03:58 Pediatrics (0 to 5 Years) and At-Risk Patients (6 to 64 Years) (1 - PCV) [code = Pneumococcal Vaccine: Pediatrics (0 to 5 Years) and At-Risk Patients (6 to 64 Years) (1 - PCV)] Future Scheduled Test 2022-10-13 COVID-19 VACCINE ([address] [place] [address] 15:03:58 Booster for Pfizer series) [code = COVID-19 VACCINE (3 - Booster for Pfizer series)] Future Scheduled Test 2022-10-13 INFLUENZA VACCINE [facility] 15:03:58 [code = INFLUENZA VACCINE] Future Scheduled Test 2022-10-13 Pneumococcal Vaccine: [facility] 15:03:58 Pediatrics (0 to 5 Years) and At-Risk Patients (6 to 64 Years) (1 - PCV) [code = Pneumococcal Vaccine: Pediatrics (0 to 5 Years) and At-Risk Patients (6 to 64 Years) (1 - PCV)] Future Scheduled Test 2022-10-13 COVID-19 VACCINE ([address] [place] [address] 15:03:58 Booster for Pfizer series) [code = COVID-19 VACCINE (3 - Booster for Pfizer series)] Future Scheduled Test 2022-10-13 INFLUENZA VACCINE [facility] 15:03:58 [code = INFLUENZA VACCINE] Future Scheduled Test 2022-10-13 Pneumococcal Vaccine: [facility] 15:03:58 Pediatrics (0 to 5 Years) and At-Risk Patients (6 to 64 Years) (1 - PCV) [code = Pneumococcal Vaccine: Pediatrics (0 to 5 Years) and At-Risk Patients (6 to 64 Years) (1 - PCV)] Future Scheduled Test 2022-10-13 COVID-19 VACCINE ([address] [place] [address] 15:03:58 Booster for Pfizer series) [code = COVID-19 VACCINE (3 - Booster for Pfizer series)] Future Scheduled Test 2022-10-13 INFLUENZA VACCINE [facility] 15:03:58 [code = INFLUENZA VACCINE] Future Scheduled Test 2022-09-14 Pneumococcal Vaccine: [facility] 09:01:17 Pediatrics (0 to 5 Years) and At-Risk Patients (6 to 64 Years) (1 - PCV) [code = Pneumococcal Vaccine: Pediatrics (0 to 5 Years) and At-Risk Patients (6 to 64 Years) (1 - PCV)] Future Scheduled Test 2022-09-14 COVID-19 VACCINE ([address] [place] [address] 09:01:17 Booster for Pfizer series) [code = COVID-19 VACCINE (3 - Booster for Pfizer series)] Future Scheduled Test 2022-09-14 INFLUENZA VACCINE [facility] 09:01:17 [code = INFLUENZA VACCINE] Future Scheduled Test 2022-09-14 Pneumococcal Vaccine: [facility] 09:01:17 Pediatrics (0 to 5 Years) and At-Risk Patients (6 to 64 Years) (1 - PCV) [code = Pneumococcal Vaccine: Pediatrics (0 to 5 Years) and At-Risk Patients (6 to 64 Years) (1 - PCV)] Future Scheduled Test 2022-09-14 COVID-19 VACCINE ([address] [place] [address] 09:01:17 Booster for Pfizer series) [code = COVID-19 VACCINE (3 - Booster for Pfizer series)] Future Scheduled Test 2022-09-14 INFLUENZA VACCINE [facility] 09:01:17 [code = INFLUENZA VACCINE] Future Scheduled Test 2022-08-18 HEPATITIS B VACCINES [facility] 15:33:44 (1 of 3 - 3-dose series) [code = HEPATITIS B VACCINES (1 of 3 - 3-dose series)] Future Scheduled Test 2022-08-18 Pneumococcal Vaccine: [facility] 15:33:44 Pediatrics (0 to 5 Years) and At-Risk Patients (6 to 64 Years) (1 - PCV) [code = Pneumococcal Vaccine: Pediatrics (0 to 5 Years) and At-Risk Patients (6 to 64 Years) (1 - PCV)] Future Scheduled Test 2022-08-18 COVID-19 VACCINE (3 - [facility] 15:33:44 Booster for Pfizer series) [code = COVID-19 VACCINE (3 - Booster for Pfizer series)] Future Scheduled Test 2022-08-18 INFLUENZA VACCINE [facility] 15:33:44 [code = INFLUENZA VACCINE] Goal Plan of Care Note [code = 94682-1] Goal Plan of Care Note [code = 79884-4] Instructions Evgeny Medic juliette Group Encounters Start End Encounter Admission Attending Care Care Encounter Source Date/Time Date/Time Type Type Clinicians Facility Department ID 2022-10-22 2022-10-22 Outpatient [facility] [place] 13:37:50 13:37:50 [id number] [place] 2022-10-21 2022-10-21 Outpatient [facility] 11:05:44 11:05:44 [id number] [place] 2022-10-09 2022-10-09 Outpatient [facility] 08:35:58 08:35:58 [id number] [place] 2022-09-18 2022-09-18 Outpatient [id number] 00:00:00 00:00:00 Visit [id number] 2022-09-17 2022-09-17 Outpatient [facility] [id number] [place] 13:08:44 13:08:44 [id number] F [place] 2021-11-13 2021-11-13 Nurse Only Betzaida Luna.2.840.1 [id number] Methodi 00:00:00 00:00:[address] 3.430.2.7 Hospit a .3.700289 l .8 2021-11-13 2021-11-13 Nurse Only Cheryl, 1.2.840.1 [id number] [facility] 00:00:00 00:00:[address] 3.430.2.7 Hospit a .3.822930 l .8 2021-11-06 2021-11-06 [facility] 1.2.840.1 [id number] Methodi 11:00:00 11:53:04 ne justice, 00953.1.[address] Kesha 3.430.2.7 Hospit a .3.668965 l .8 2021-11-06 2021-11-06 Travel 1.2.840.1 1.2.322.462 [id number] [facility]i 00:00:00 00:00:[address] 3.430.2.7 0.2.7.3.698 Ho spita .3.061102 084.8 l .8 2021-10-27 2021-10-31 [facility] Tan Goodwin 1.2.84 0.1 [id number] Methodi 19:00:00 13:24:00 Encounter Harvinder Scott 47285.1.[address] [facility] Angy Bar .3.878210 l .8 2021-10-31 2021-10-31 Travel 1.2.840.1 1.2.097.214 [id number] [facility]i 00:00:00 00:00:[address] 3.430.2.7 0.2.7.3.698 Ho spita .3.458630 084.8 l .8 2020-03-14 2020-03-14 Outpatient [facility] [id number] [place] 00:00:00 00:00:00 IMAD [address] 2020-03-07 2020-03-07 Outpatient [facility] [id number] [place] 00:00:00 00:00:[address] 2020-02-21 2020-02-29 Inpatient [facility] [id number] [place] 00:00:00 00:00:[address] 2020-02-21 2020-02-21 Outpatient Hawkins_M MMG MMG [id number] [place] 10:44:00 10:44:00 0526 Medical Group 2020-01-26 2020-01-26 Outpatient Hawkins_M MMG MMG [id number] [place] 04:20:00 04:20:00 0430 Medical Group 2020-01-17 2020-01-17 Outpatient Hawkins_M MMG MMG [id number] [place] 06:59:00 06:59:00 0421 Medical Group 2020-01-17 2020-01-17 [place] - [id number] M atagor 00:00:00 00:00:00 Ct Singh, Medical Medical ACTIVE DIRECTORY ARCHITECT: [address] [facility] [address], [place] [address] , Ph. 2020-01-12 2020-01-12 Outpatient Hawkins_M MMG MMG [id number] [place] 07:00:00 07:00:00 0416 Medical Group 2020-01-10 2020-01-10 [place] [facility] [place] - [id number] M atagor 00:00:00 00:00:00 Ct Singh, Medical Medical ACTIVE DIRECTORY ARCHITECT: [address] [facility] [address], [place] [address] , Ph. 2020-01-09 2020-01-09 Outpatient Hawkins_M MMG MMG [id number] [place] 06:48:00 06:48:00 0413 Medical Group 2020-01-09 2020-01-09 Outpatient Hawkins_M MMG MMG [id number] [place] 06:48:00 06:48:00 0414 Medical Group 2020-01-09 2020-01-09 Outpatient Hawkins_M MMG MMG [id number] [place] 06:48:00 06:48:00 0415 elías [facility] 2020-01-09 2020-01-09 [place] [facility] [place] [facility] [id number] [facility] Ct Singh, Medical Medical ACTIVE DIRECTORY ARCHITECT: [address] [facility] [address], [place] [address] , Ph. Results Test Description Test Time Test Comments Results Result Comments Source POC glucose 2021-10-31 17:01:36 Test Item Value Reference Range Interpretation Comme nts POC glucose (test code = 159 mg/dL 65-99 H Ope rator Name: Josiah Sutherland [id number]) ID: [id number] hartable: [facility] Notified electronic organ mechanic Interpretation (test code = Abnormal 28039-1) [facility]2022-02-03 17:01:36 Test Item Value Reference Range Interpretation Comments POC glucose (test code = 159 mg/dL 65-99 H Ope rator Name: [id number]) Josiah Sutherland ID: [id number] able: TM Notified electronic organ mechanic Interpretation (test Abnormal code = 63666-1) [facility]2022-02-03 17:01:36 Test Item Value Reference Range Interpretation Comments POC glucose (test code = 159 mg/dL 65-99 H Ope rator Name: [id number]) Josiah Sutherland ID: [id number] able: TM Notified electronic organ mechanic Interpretation (test Abnormal code = 29831-9) [facility]2022-02-03 17:01:36 Test Item Value Reference Range Interpretation Comments POC glucose (test code = 159 mg/dL 65-99 H Ope rator Name: [id number]) Josiah Sutherland ID: [id number] able: [facility] Notified electronic organ mechanic Interpretation (test Abnormal code = 46602-7) [facility]2022-02-03 17:01:36 Test Item Value Reference Range Interpretation Comments POC glucose (test code = 159 mg/dL 65-99 H Ope rator Name: [id number]) Josiah Sutherland ID: [id number] able: TM[facility] Notified electronic organ mechanic Interpretation (test Abnormal code = 08971-6) [facility]2022-02-03 17:01:36 Test Item Value Reference Range Interpretation Comments POC glucose (test code = 159 mg/dL 65-99 H Ope rator Name: [id number]) Josiah Sutherland ID: [id number] able: [facility] Notified electronic organ mechanic Interpretation (test Abnormal code = 00561-7) [facility]2022-02-03 17:01:36 Test Item Value Reference Range Interpretation Comments POC glucose (test code = 159 mg/dL 65-99 H Ope rator Name: [id number]) Josiah Sutherland ID: [id number] able: TM[facility] Notified electronic organ mechanic Interpretation (test Abnormal code = 50570-1) [facility]2022-02-03 17:01:36 Test Item Value Reference Range Interpretation Comments POC glucose (test code = 159 mg/dL 65-99 H Ope rator Name: [id number]) Josiah Sutherland ID: [id number] able: TM[facility] Notified electronic organ mechanic Interpretation (test Abnormal code = 55459-9) [facility]2022-02-03 17:01:36 Test Item Value Reference Range Interpretation Comments POC glucose (test code = 159 mg/dL 65-99 H Ope rator Name: [id number]) Josiah Sutherland ID: [id number] able: TM[facility] Notified electronic organ mechanic Interpretation (test Abnormal code = 34641-4) [facility]2022-02-03 17:01:36 Test Item Value Reference Range Interpretation Comments POC glucose (test code = 159 mg/dL 65-99 H Ope rator Name: [id number]) Josiah Sutherland ID: [id number] able: TM[facility] Notified electronic organ mechanic Interpretation (test Abnormal code = 31573-0) [place] [address] [id number] 13:18:07 Test Item Value Reference Range Interpretation Comments Ventricular rate (test code = 253) Atrial rate (test code = 255) PA interval (test code = 266) QRSD interval [...] Barillas MD ([id number]) on 10/28/2021 7:18:[address]2022-01-31 13:18:07 Test Item Value Reference Range Interpretation Comments Ventricular rate (test code = 253) Atrial rate (test code = 255) PA interval (test code = 266) QRSD interval [...] Barillas MD ([id number]) on 10/28/2021 7:18:[address]2022-01-31 13:18:07 Test Item Value Reference Range Interpretation Comments Ventricular rate (test code = 253) Atrial rate (test code = 255) PA interval (test code = 266) QRSD interval [...] Barillas MD ([id number]) on 10/28/2021 7:18:[address]2022-01-31 13:18:07 Test Item Value Reference Range Interpretation Comments Ventricular rate (test code = 253) Atrial rate (test code = 255) PA interval (test code = 266) QRSD interval [...] Barillas MD ([id number]) on 10/28/2021 7:18:[address]2022-01-31 13:18:07 Test Item Value Reference Range Interpretation Comments Ventricular rate (test code = 253) Atrial rate (test code = 255) PA interval (test code = 266) QRSD interval [...] Barillas MD ([id number]) on 10/28/2021 7:18:[address]2022-01-31 13:18:07 Test Item Value Reference Range Interpretation Comments Ventricular rate (test code = 253) Atrial rate (test code = 255) PA interval (test code = 266) QRSD interval [...] Barillas MD ([id number]) on 10/28/2021 7:18:[address]2022-01-31 13:18:07 Test Item Value Reference Range Interpretation Comments Ventricular rate (test code = 253) Atrial rate (test code = 255) PA interval (test code = 266) QRSD interval [...] Barillas MD ([id number]) on 10/28/2021 7:18:[address]2022-01-31 13:18:07 Test Item Value Reference Range Interpretation Comments Ventricular rate (test code = 253) Atrial rate (test code = 255) PA interval (test code = 266) QRSD interval [...] Barillas MD ([id number]) on 10/28/2021 7:18:06 AM [facility] 12 [id number] 13:18:07 Test Item Value Reference Range Interpretation Comments Ventricular rate (test code = 253) Atrial rate (test code = 255) PA interval (test code = 266) QRSD interval [...] Barillas MD ([id number]) on 10/28/2021 7:18:06 AM [facility]2022-01-31 06:53:05 Test Item Value Reference Range Interpretation Comments Urine culture (test SEE COMMENT Bacteriu cyril screen code = 3074034) negative. [facility]2022-01-31 06:53:05 Test Item Value Reference Range Interpretation Comments Urine culture (test SEE COMMENT Bacteriu cyril screen code = 8578424) negative. [facility]2022-01-31 06:53:05 Test Item Value Reference Range Interpretation Comments Urine culture (test SEE COMMENT Bacteriu cyril screen code = 3305230) negative. [facility]2022-01-31 06:53:05 Test Item Value Reference Range Interpretation Comments Urine culture (test SEE COMMENT Bacteriu cyril screen code = 0271808) negative. [facility]2022-01-31 06:53:05 Test Item Value Reference Range Interpretation Comments Urine culture (test SEE COMMENT Bacteriu cyril screen code = 2202202) negative. [facility]2022-01-31 06:53:05 Test Item Value Reference Range Interpretation Comments Urine culture (test SEE COMMENT Bacteriu cyril screen code = 2732959) negative. [facility] [id number] 06:53:05 Test Item Value Reference Range Interpretation Comments Urine culture (test SEE COMMENT Bacteriu cyril screen code = 3634293) negative. [facility] [id number] 06:53:05 Test Item Value Reference Range Interpretation Comments Urine culture (test SEE COMMENT Bacteriu cyril screen code = 1428951) negative. [facility] [id number] 06:53:05 Test Item Value Reference Range Interpretation Comments Urine culture (test SEE COMMENT Bacteriu cyril screen code = 5070798) negative. [facility] [id number] 06:53:05 Test Item Value Reference Range Interpretation Comments Urine culture (test SEE COMMENT Bacteriu cyril screen code = 8675352) [facility] [Presence] in Respiratory specimen by LEE with probe [id number] 23:57:03 Test Item Value Reference Range Interpretation Comments SARS-CoV-2 (COVID-19) RNA Not detected Not-Detected [Presence] in Respiratory specimen by LEE with probe detection (test code = 16721-6) Whether patient is employed in a healthcare setting (test code = 67658-2) Whether the patient has symptoms related to condition of interest (test code = 21608-2) Patient was hospitalized because of this condition (test code = 27295-7) Whether the patient was admitted to intensive care unit (ICU) for condition of interest (test code = 98825-3) Whether patient resides in a congregate care setting (test code = 89514-9) ELLEN MAHONEY
[2022-11-13 10:09] LABS: Absolute Lymphocytes (CBC) 3.2 K/uL (0.7-4.9); Hematocrit 43.7 % (39.6-49.0); Lymphocytes % 34.5 % (15.3-44.8); MCV 78.4 fL (80-100); MPV 9.5 fL (7.6-11.3); RBC Red Blood Cell Count 5.57 M/uL (4.33-5.43)
[2022-11-13 10:26] LABS: Albumin 3.2 g/dL (3.4-5.0); Bilirubin Direct 0.2 mg/dL (0-0.2); Bilirubin Total 0.8 mg/dL (0.2-1.0); Magnesium 1.7 mg/dL (1.6-2.4); Potassium 3.5 mmol/L (3.5-5.1); Protein, Total 6.8 g/dL (6.4-8.2); Troponin High Sensitivity 19.3 pg/mL (<58.9)
--- NOTE | 2022-11-13 11:04 | RAD REPORT ---
EXAM DESCRIPTION: RAD - Chest Single View - 11/13/2022 10:49 am CLINICAL HISTORY: DYSPNEA Chest pain. COMPARISON: Chest Single View dated 10/28/2022; Chest Single View dated 10/13/2022; Chest Pa And Lat ( 2 Views) dated 08/30/2022; Chest Single View dated 10/25/2021; Chest For Pe Angio dated 10/28/2022 FINDINGS: Portable technique limits examination quality. The lungs are grossly clear. Moderate cardiomegaly. No displaced fractures.
--- NOTE | 2022-11-13 11:11 | EDPHYS ---
Physician Documentation [facility] Name: Sabino Simon Age: 27 yrs Sex: Male : 1995 Arrival Date: 11/13/2022 Time: 09:37 Bed 2 Private MD: ED Physician Emma Hope HPI: 11/13 09:45 This 27 yrs old Male presents to ER via EMS with complaints of SOB and generalized sp3 weakness. 09:45 27-year-old male with a history of congestive heart failure with an EF of 10%, sp3 hypertension, uncontrolled diabetes presents to the ED for recurrent dyspnea that started approximately 2 days ago. He also reports generalized weakness. He denies chest pain, headache, fever, URI symptoms, cough, abdominal pain, nausea, vomiting, diarrhea, rash, syncope, near syncope, focal neurological deficit, known sick contacts, travel history, or any other signs or symptoms at this time on ROS.. Historical: - Allergies: 09:39 No Known Allergies; bp - Home Meds: 09:39 aspirin 81 mg oral tab 81 mg daily [Active]; furosemide 40 mg Oral tab 1 tab once daily bp [Active]; lisinopril 5 mg Oral tab 1 tab once daily [Active]; metoprolol tartrate 25 mg Oral tab 1 tab once daily [Active]; potassium chloride 20 mEq Oral TbER 1 tab 2 times per day [Active]; - PMHx: 09:39 Anxiety; Congestive heart failure; depressive disorder; Hypertensive disorder; bp - Immunization history:: Adult Immunizations up to date. - Social history:: Smoking status: Patient denies any tobacco usage or history of. ROS: 09:49 Constitutional: Negative for fever, chills, and weight loss, Eyes: Negative for injury, sp3 pain, redness, and discharge, ENT: Negative for injury, pain, and discharge, Neck: Negative for injury, pain, and swelling, Cardiovascular: Negative for chest pain, palpitations, and edema, Abdomen/GI: Negative for abdominal pain, nausea, vomiting, diarrhea, and constipation, MS/Extremity: Negative for injury and deformity, Skin: Negative for injury, rash, and discoloration, Neuro: Negative for headache, weakness, numbness, tingling, and seizure, Psych: Negative for depression, anxiety, suicide ideation, homicidal ideation, and hallucinations, Allergy/Immunology: Negative for hives, rash, and allergies, Endocrine: Negative for neck swelling, polydipsia, polyuria, polyphagia, and marked weight changes. 09:49 All other systems are negative. Exam: 09:49 Constitutional: This is a well developed, well nourished patient who is awake, alert, sp3 and in no acute distress. Head/Face: Normocephalic, atraumatic. Eyes: Pupils equal round and reactive to light, extra-ocular motions intact. Lids and lashes normal. Conjunctiva and sclera are non-icteric and not injected. Cornea within normal limits. Periorbital areas with no swelling, redness, or edema. ENT: Nares patent. No nasal discharge, no septal abnormalities noted. External auditory canals are clear. Oropharynx with no redness, swelling, or masses, exudates, or evidence of obstruction, uvula midline. Mucous membranes moist. Neck: Trachea midline, no thyromegaly or masses palpated, and no cervical lymphadenopathy. Supple, full range of motion without nuchal rigidity, or vertebral point tenderness. No Meningismus. Chest/axilla: Normal chest wall appearance and motion. Nontender with no deformity. No lesions are appreciated. Cardiovascular: Regular rate and rhythm with a normal S1 and S2. No gallops, murmurs, or rubs. Normal PMI, no JVD. No pulse deficits. Abdomen/GI: Soft, non-tender, with normal bowel sounds. No distension or tympany. No guarding or rebound. No evidence of tenderness throughout. Back: No spinal tenderness. No costovertebral tenderness. Full range of motion. Skin: Warm, dry with normal turgor. Normal color with no rashes, no lesions, and no evidence of cellulitis. MS/ Extremity: Pulses equal, no cyanosis. Neurovascular intact. Full, normal range of motion. Neuro: Awake and alert, GCS 15, oriented to person, place, time, and situation. Cranial nerves II-XII grossly intact. Motor strength 5/5 in all extremities. Sensory grossly intact. Cerebellar exam normal. Normal gait. Psych: Awake, alert, with orientation to person, place and time. Behavior, mood, and affect are within normal limits. 09:49 Respiratory: Mild rales bilateral bases. Vital Signs: 09:37 BP 135 / 88; Pulse 100; Resp 16; Temp 98; Pulse Ox 98% ; bp 09:41 BP 142 / 98; Pulse 99; Resp 19; Pulse Ox 98% ; bp 10:56 BP 115 / 103; Pulse 97; Resp 30; Pulse Ox 98% ; bp MDM: 09:44 Patient medically screened. sp3 09:49 Data reviewed: vital signs, nurses notes. ED course: 27-year-old male with dyspnea. sp3 Differential diagnosis includes congestive heart failure, viral illness, pneumonia, bronchitis, among others. We will work patient up with laboratory values including BNP, chest x-ray, EKG and general observation. Administer Lasix as needed with likely discharge home given mild symptoms and normal vital signs.. 11:08 ED course: BNP levels at 3000. Chest x-ray demonstrates mild pulmonary edema and sp3 significant cardiomegaly. We will give 40 mg of IV Lasix and discharge patient safely home.. 11/13 09:44 Order name: Basic Metabolic Panel; Complete Time: 10:35 3 11/13 09:44 Order name: CBC with Diff; Complete Time: 10:35 11/13 09:44 Order name: LFT's; Complete Time: 10:35 11/13 09:44 Order name: Magnesium; Complete Time: 10:35 11/13 09:44 Order name: NT PRO-BNP; Complete Time: 10:35 11/13 09:44 Order name: Troponin HS; Complete Time: 10:35 11/13 09:44 Order name: XRAY Chest (1 view) 3 11/13 09:44 Order name: EKG; Complete Time: 09:45 3 11/13 09:44 Order name: Cardiac monitoring; Complete Time: 10:19 11/13 09:44 Order name: EKG - Nurse/Tech; Complete Time: 10:19 11/13 09:44 Order name: IV Saline Lock; Complete Time: 10:19 11/13 09:44 Order name: Labs collected and sent; Complete Time: 10:19 3 11/13 09:44 Order name: O2 Per Protocol; Complete Time: 10:19 sp3 11/13 09:44 Order name: O2 Sat Monitoring; Complete Time: 10:19 sp3 Administered Medications: 11:15 Drug: Lasix (furosemide) 40 mg Route: IVP; Site: right forearm; bp 11:22 Follow up: Response: No adverse reaction bp Disposition Summary: 11/13/22 11:10 Discharge Ordered Location: Home sp3 Condition: Stable sp3 Diagnosis - Heart failure, unspecified sp3 Followup: sp3 - With: Private Physician - When: As needed - Reason: Continuance of care Discharge Instructions: - Discharge Summary Sheet sp3 - Heart Failure, Diagnosis sp3 Forms: - Medication Reconciliation Form sp3 - Thank You Letter sp3 - Antibiotic Education sp3 - Prescription Opioid Use sp3 Signatures: Dispatcher [employer] Gunner Khoury, MELY RN Emma Oviedo MD MD sp3
--- NOTE | 2022-11-13 11:11 | ER ---
[facility] Name: Sabino Simon Age: 27 yrs Sex: Male : 1995 Arrival Date: 11/13/2022 Time: 09:37 Bed 2 Private MD: Diagnosis: Heart failure, unspecified Presentation: 11/13 09:37 Chief complaint: EMS states: GENERAL WEAKNESS AND FATIGUE FOR WEEKS. Coronavirus bp screen: At this time, the client does not indicate any symptoms associated with coronavirus-19. Ebola Screen: No symptoms or risks identified at this time. Initial Sepsis Screen: Does the patient meet any 2 criteria? HR > 90 bpm. No. Patient's initial sepsis screen is negative. Does the patient have a suspected source of infection? No. Patient's initial sepsis screen is negative. Risk Assessment: Do you want to hurt yourself or someone else? Patient reports no desire to harm self or others. Onset of symptoms is unknown. Care prior to arrival: Glucose check: 353. 09:37 Method Of Arrival: EMS: [facility] bp 09:37 Acuity: RODRIGO 3 bp Triage Assessment: 09:39 General: Appears in no apparent distress. Behavior is calm, cooperative, appropriate bp for age. Pain: Denies pain. EENT: No deficits noted. Neuro: Reports weakness. Cardiovascular: No deficits noted. Respiratory: No deficits noted. GI: No signs and/or symptoms were reported involving the gastrointestinal system. : No signs and/or symptoms were reported regarding the genitourinary system. Derm: No deficits noted. Musculoskeletal: No deficits noted. Historical: - Allergies: 09:39 No Known Allergies; bp - Home Meds: 09:39 aspirin 81 mg oral tab 81 mg daily [Active]; furosemide 40 mg Oral tab 1 tab once daily bp [Active]; lisinopril 5 mg Oral tab 1 tab once daily [Active]; metoprolol tartrate 25 mg Oral tab 1 tab once daily [Active]; potassium chloride 20 mEq Oral TbER 1 tab 2 times per day [Active]; - PMHx: 09:39 Anxiety; Congestive heart failure; depressive disorder; Hypertensive disorder; bp - Immunization history:: Adult Immunizations up to date. - Social history:: Smoking status: Patient denies any tobacco usage or history of. Screenin:42 [facility] ED Fall Risk Assessment (Adult) History of falling in the last 3 months, bp including since admission No falls in past 3 months (0 pts). Abuse screen: Denies threats or abuse. Denies injuries from another. Nutritional screening: No deficits noted. Tuberculosis screening: No symptoms or risk factors identified. Assessment: 09:41 General: SEE TRIAGE NOTE. bp 10:56 Reassessment: No changes from previously documented assessment. Patient and/or family bp updated on plan of care and expected duration. Pain level reassessed. 11:16 Reassessment: PT DC HOME AMBULATORY. bp Vital Signs: 09:37 BP 135 / 88; Pulse 100; Resp 16; Temp 98; Pulse Ox 98% ; bp 09:41 BP 142 / 98; Pulse 99; Resp 19; Pulse Ox 98% ; bp 10:56 BP 115 / 103; Pulse 97; Resp 30; Pulse Ox 98% ; bp ED Course: 09:37 Patient arrived in ED. bp 09:37 Emma Hope MD is Attending Physician. sp3 09:39 Triage completed. bp 09:39 Arm band placed on. bp 09:42 Patient has correct armband on for positive identification. Bed in low position. Call bp light in reach. Side rails up X2. 09:47 Gunner Morrison, RN is Primary Nurse. bp 10:00 Inserted saline lock: 22 gauge in right forearm, using aseptic technique. Blood bp collected. 10:51 XRAY Chest (1 view) In Process Unspecified. EDMS 11:16 No provider procedures requiring assistance completed. IV discontinued, intact, bp bleeding controlled, No redness/swelling at site. Pressure dressing applied. Administered Medications: 11:15 Drug: Lasix (furosemide) 40 mg Route: IVP; Site: right forearm; bp 11:22 Follow up: Response: No adverse reaction bp Medication: 11:16 VIS not applicable for this client. bp Outcome: 11:10 Discharge ordered by sp3 11:16 Discharged to home ambulatory. bp 11:16 Condition: stable 11:16 Discharge instructions given to patient, Instructed on discharge instructions, follow up and referral plans. Demonstrated understanding of instructions, follow-up care. 11:23 Patient left the ED. bp Signatures: Dispatcher [employer] EDMS Gunner Morrison RN RN bp Emma Hope MD MD sp3
[2022-11-13] MEDS ORDERED: FUROSEMIDE 40 MG/4 ML VIAL ONE (11:12)
[2022-11-13 11:49] VITALS: TEMP 98; O2SAT 98
[2022-11-13 11:55] VITALS: BP 142/98
--- NOTE | 2022-11-14 16:04 | EKG ---
Test Date: 2022-11-13 Test Time: 09:59:11 Human Resources Supervisor: DANIEL MEASUREMENT RESULTS: Intervals: Rate: 97 SD: 162 QRSD: 96 QT: 408 QTc: 518 [place]: P: 31 SD: 162 QRS: 30 T: 118 INTERPRETIVE STATEMENTS: Normal sinus rhythm ST & T wave abnormality, consider lateral ischemia Prolonged QT Abnormal ECG Compared to ECG 10/28/2022 20:04:24 ST (T wave) deviation now present Possible ischemia now present Prolonged QT interval now present Sinus tachycardia no longer present Atrial abnormality no longer present Electronically Signed On 11-14-22 16:00:47 [employer] by Romulo Coon
== END 2022-11-13 11:23 | disposition home or self-care (01) ==
LOC: ER 09:35
DX: I50.9 Heart failure, unspecified (principal); I10 Essential (primary) hypertension
CPT/HCPCS: 36415; 71045; 80048; 80076; 83735; 83880; 84484; 85025; 93005; 96374; 99284; J1940

== ENCOUNTER → 2023-10-03 | Emergency (ER) | payer SELFPAY ==
--- NOTE | 2023-10-03 13:30 | RAD REPORT ---
EXAM DESCRIPTION: RAD - Chest Single View - 10/03/2023 1:19 pm CLINICAL HISTORY: SOB Chest pain. COMPARISON: Chest Single View dated 09/13/2023; Chest Single View dated 07/10/2023; Chest Single Vie w dated 11/13/2022; Chest Single View dated 10/28/2022 FINDINGS: Portable technique limits examination quality. Mild interstitial pulmonary edema suspected. The heart is significantly enlarged. No displaced fractu res. IMPRESSION: Mild CHF pattern.
[2023-10-03 13:34] LABS: Lymphocytes % 22.8 % (15.3-44.8); MCV 82.9 fL (80-100); MPV 8.9 fL (7.6-11.3); Platelets 256 thou/uL (152-406); RBC Red Blood Cell Count 5.54 M/uL (4.33-5.43)
[2023-10-03 13:36] LABS: SARS-CoV-2 Antigen Rapid Res Negative (Negative)
[2023-10-03 13:50] LABS: Albumin 3.2 g/dL (3.4-5.0); Bilirubin Total 2.4 mg/dL (0.2-1.0); Potassium 3.9 mEq/L (3.5-5.1); Protein, Total 6.9 g/dL (6.4-8.2); Troponin High Sensitivity 25.1 pg/mL (<58.9)
--- NOTE | 2023-10-03 14:29 | RAD REPORT ---
EXAM DESCRIPTION: CTAbdomen Pelvis W Contrast - 10/03/2023 2:23 pm CLINICAL HISTORY: Abdominal pain. ABD PAIN COMPARISON: No comparisons TECHNIQUE: Biphasic CT imaging of the abdomen and pelvis was performed with 100 ml non-ionic IV cont rast. All CT scans are performed using dose optimization technique as appropriate and may include automated exposure control or mA/KV adjustment according to patient size. FINDINGS: The lung bases are clear.Cardiomegaly is seen. Fatty liver is present and there is enlarged liver size. Hepatic veins are enlarged suggesting passiv e congestion. The spleen, pancreas, adrenal glands and kidneys are within normal limits. No bowel obstruction, free air, free fluid or abscess. Mild nonspecific fat stranding is seen in the right pericolic gutter. The appendix is normal. No evidence of significant lymphadenopathy. Small fa t containing bilateral inguinal hernias, larger on the left. No suspicious bony findings. IMPRESSION: Diffuse fatty liver is seen with enlarged liver size. Passive congestion of the liver is suspected. Cardiomegaly.
--- NOTE | 2023-10-03 14:56 | ER ---
Nurse's Notes [facility] Name: Sabino Simon Age: 28 yrs Sex: Male : 1995 Arrival Date: 10/03/2023 Time: 12:27 Bed 19 Private MD: Diagnosis: Acute systolic (congestive) heart failure;Dyspnea;Medication Refill Presentation: 10/03 12:45 Chief complaint: Worsening SOB x 2 weeks, worse when supine. chills and abdominal hb bloating x 2-3 days. Has been out of his Digoxin and Metformin for 3 days. Coronavirus screen: At this time, the client does not indicate any symptoms associated with coronavirus-19. Ebola Screen: No symptoms or risks identified at this time. Initial Sepsis Screen: Does the patient meet any 2 criteria? No. Patient's initial sepsis screen is negative. Does the patient have a suspected source of infection? No. Patient's initial sepsis screen is negative. Risk Assessment: Do you want to hurt yourself or someone else? Patient reports no desire to harm self or others. Onset of symptoms was September 26, 2023. 12:45 Method Of Arrival: Ambulatory hb 12:45 Acuity: RODRIGO 3 hb Historical: - Allergies: 12:48 No Known Allergies; hb - Home Meds: 12:48 aspirin 81 mg Oral tab 81 mg daily [Active]; furosemide 40 mg Oral tab 1 tab 2 times hb per day [Active]; lisinopril 20 mg oral tablet [Active]; metoprolol tartrate 25 mg Oral tab 1 tab 2 times per day [Active]; metformin 1,000 mg oral Tablet, Extended Release 24 hr 1 tab 2 times per day [Active]; digoxin 125 mcg (0.125 mg) Oral tablet daily [Active]; potassium chloride 20 mEq Oral TbER 1 tab daily [Active]; atorvastatin 20 mg oral tablet daily [Active]; spironolactone 25 mg Oral tablet [Active]; - PMHx: 12:48 Congestive heart failure; Anxiety; depressive disorder; diabetes mellitus; Hypertensive hb disorder; - PSHx: 12:48 None; hb - Immunization history:: Client reports receiving the 2nd dose of the Covid vaccine, Flu vaccine is not up to date. It has been more than one year since last vaccine. - Social history:: Smoking status: Reported history of juuling and/or vaping. Screenin:26 [facility] ED Fall Risk Assessment (Adult) History of falling in the last 3 months, db including since admission No falls in past 3 months (0 pts) Score/Fall Risk Level 0 - 2 = Low Risk Oriented to surroundings, Maintained a safe environment. Abuse screen: Denies threats or abuse. Denies injuries from another. Nutritional screening: No deficits noted. Tuberculosis screening: No symptoms or risk factors identified. Assessment: 13:24 Reassessment: Patient appears in no apparent distress at this time. Patient and/or db family updated on plan of care and expected duration. Pain level reassessed. Patient is alert, oriented x 3, equal unlabored respirations, skin warm/dry/pink. General: Appears in no apparent distress. comfortable, Behavior is calm, cooperative. Pain: Complains of pain in abdomen. Neuro: Level of Consciousness is awake, alert, obeys commands, Oriented to person, place, time, situation. Respiratory: Reports shortness of breath Airway is patent Respiratory effort is even, unlabored, Respiratory pattern is regular, symmetrical. GI: Abdomen is distended, Bowel sounds present X 4 quads. Abd is soft Reports lower abdominal pain, upper abdominal pain. 14:11 Reassessment: Patient appears in no apparent distress at this time. Patient and/or db family updated on plan of care and expected duration. Pain level reassessed. Patient is alert, oriented x 3, equal unlabored respirations, skin warm/dry/pink. 15:15 Reassessment: Patient appears in no apparent distress at this time. Patient and/or db family updated on plan of care and expected duration. Pain level reassessed. Patient is alert, oriented x 3, equal unlabored respirations, skin warm/dry/pink. Patient states feeling better. Patient states symptoms have improved. General: Appears in no apparent distress. comfortable, Behavior is calm, cooperative. Neuro: Level of Consciousness is awake, alert, obeys commands, Oriented to person, place, time, situation. Vital Signs: 12:45 BP 147 / 105; Pulse 98; Resp 20; Temp 97.8(O); Pulse Ox 100% on R/A; Weight 88.45 kg; hb Height 5 ft. 6 in. ; Pain 5/10; 13:15 BP 141 / 105; Pulse 93; Resp 18; Pulse Ox 99% on R/A; db 15:15 BP 143 / 93; Pulse 93; Resp 18; Pulse Ox 100% on R/A; db 12:45 Body Mass Index 31.47 (88.45 kg, 167.64 cm) hb 12:45 Pain Scale: Adult hb ED Course: 12:29 Patient arrived in ED. im 12:29 Hardik Oliveira MD is Attending Physician. ec2 12:37 Eloisa Arguelles, RN is Primary Nurse. db 12:48 Triage completed. hb 12:52 Arm band placed on. hb 13:05 Inserted saline lock: 20 gauge in right antecubital area, using aseptic technique. db Blood collected. 13:21 XRAY Chest (1 view) In Process Unspecified. EDMS 13:23 No provider procedures requiring assistance completed. db 13:33 Patient has correct armband on for positive identification. Bed in low position. Call db light in reach. Side rails up X 1. Client placed on continuous cardiac and pulse oximetry monitoring. NIBP monitoring applied. Warm blanket given. 14:25 CT Abd/Pelvis - IV Contrast Only In Process Unspecified. EDMS 15:15 Provided Education on: DISCHARGE. db 15:15 IV discontinued, intact, bleeding controlled, No redness/swelling at site. db Administered Medications: No medications were administered Medication: 13:26 VIS not applicable for this client. db Outcome: 14:55 Discharge ordered by . ec2 15:15 Discharged to home ambulatory, with family, db 15:15 Condition: stable 15:15 Discharge instructions given to patient, Instructed on discharge instructions, follow up and referral plans. Prescriptions given X 2, 15:37 Patient left the ED. db Signatures: Dispatcher [employer] EDMS Denise Muñoz RN RN Eloisa Arguelles, RN RN db Twila Sebastian Hardik Oliveira MD MD ec2 Corrections: (The following items were deleted from the chart) 15:45 14:11 Reassessment: Patient appears in no apparent distress at this time. db db
--- NOTE | 2023-10-03 14:56 | EDPHYS ---
Physician Documentation [facility] Name: Sabino Simon Age: 28 yrs Sex: Male : 1995 Arrival Date: 10/03/2023 Time: 12:27 Bed 19 Private MD: ED Physician Hardik Oliveira HPI: 10/03 12:42 This 28 yrs old Male presents to ER via Unassigned with complaints of ec2 Abdominal Distention, Nausea/Vomiting, Shortness Of Breath. 12:42 Patient arrives today for evaluation of shortness of breath as well as nausea and ec2 vomiting. Patient reports that he has been experiencing worsening symptoms for the past several days, states that he feels like he is distended and bloated. Patient reports decreased p.o. intake and general issues keeping p.o. down. Patient reports that he has a history of heart failure, is on digoxin as well as furosemide. Has not been taking his digoxin for the past week. Denies any leg swelling.. Historical: - Allergies: 12:48 No Known Allergies; hb - Home Meds: 12:48 aspirin 81 mg Oral tab 81 mg daily [Active]; furosemide 40 mg Oral tab 1 tab 2 times hb per day [Active]; lisinopril 20 mg oral tablet [Active]; metoprolol tartrate 25 mg Oral tab 1 tab 2 times per day [Active]; metformin 1,000 mg oral Tablet, Extended Release 24 hr 1 tab 2 times per day [Active]; digoxin 125 mcg (0.125 mg) Oral tablet daily [Active]; potassium chloride 20 mEq Oral TbER 1 tab daily [Active]; atorvastatin 20 mg oral tablet daily [Active]; spironolactone 25 mg Oral tablet [Active]; - PMHx: 12:48 Congestive heart failure; Anxiety; depressive disorder; diabetes mellitus; Hypertensive hb disorder; - PSHx: 12:48 None; hb - Immunization history:: Client reports receiving the 2nd dose of the Covid vaccine, Flu vaccine is not up to date. It has been more than one year since last vaccine. - Social history:: Smoking status: Reported history of juuling and/or vaping. ROS: 12:42 Constitutional: as per hpi ec2 Exam: 12:42 Constitutional: GEN: NAD Head: atraumatic Eyes: EOMI Ears: External ears are ec2 normal. CV: regular rate, no lower extremity edema LUNGS: no respiratory distress, no wheezes, no rales, rhonchi ABD: non-distended, soft, nontender, not guarding, not rigid SKIN: no evidence of rashes MSK: no evidence of trauma NEURO: moves all extremities equally Vital Signs: 12:45 BP 147 / 105; Pulse 98; Resp 20; Temp 97.8(O); Pulse Ox 100% on R/A; Weight 88.45 kg; hb Height 5 ft. 6 in. ; Pain 5/10; 13:15 BP 141 / 105; Pulse 93; Resp 18; Pulse Ox 99% on R/A; db 15:15 BP 143 / 93; Pulse 93; Resp 18; Pulse Ox 100% on R/A; db 12:45 Body Mass Index 31.47 (88.45 kg, 167.64 cm) hb 12:45 Pain Scale: Adult hb MDM: 12:41 Patient medically screened. ec2 12:42 Data reviewed: vital signs. ED course: Patient arrives today due to concern for ec2 subjective shortness of breath as well as nausea and vomiting. Examination remarkable for well-appearing nontoxic individual is otherwise in no acute respiratory distress. Will obtain lab work, EKG, chest x-ray for further assessment of the patient complaint. Currently considering volume overload, viral infection, will suspicion for ACS or PE. . 12:45 ED course: EKG independently reviewed and interpreted by me, shows normal sinus rhythm, ec2 rate of 101, no acute ST segment elevations, QTc with slight prolongation at 492.. 13:55 ED course: CBC shows slight leukocytosis. Metabolic profile shows appropriate renal ec2 function. Troponin is within normal ranges. Chest x-ray shows interstitial edema as well as cardiomegaly. Negative flu and COVID testing. Will obtain a CT scan of the abdomen pelvis given the LFT abnormalities. Additionally patient does meet SIRS criteria with the documented heart rate as well as the WBC of 13, currently I do not have evidence of pneumonia or an acute bacterial infection, accordingly will defer antibiotic therapy at this time. . 14:36 ED course: CT abdomen pelvis is nonactionable.. ec2 14:53 ED course: Patient states he is making minimal urine with his current 40 mg of Lasix ec2 twice daily, will recommend increasing to 80 mg twice daily. Also out of his digoxin, will prescribe this a 0.125 mg daily as prescribed to him currently. Will discharge home. Return precautions given. 10/03 12:42 Order name: CBC with Diff; Complete Time: 13:54 ec2 10/03 12:42 Order name: NT PRO-BNP; Complete Time: 13:54 ec2 10/03 12:42 Order name: Troponin HS; Complete Time: 13:54 ec2 10/03 12:42 Order name: CMP; Complete Time: 13:54 ec2 10/03 12:42 Order name: Influenza Screen (a \T\ B); Complete Time: 13:54 ec2 10/03 12:42 Order name: SARS RAPID; Complete Time: 13:54 ec2 10/03 12:42 Order name: XRAY Chest (1 view); Complete Time: 13:54 ec2 10/03 13:56 Order name: CT Abd/Pelvis - IV Contrast Only; Complete Time: 14:36 ec2 10/03 12:42 Order name: EKG; Complete Time: 12:42 ec2 10/03 12:42 Order name: Cardiac monitoring; Complete Time: 13:23 ec2 10/03 12:42 Order name: EKG - Nurse/Tech; Complete Time: 13:01 ec2 10/03 12:42 Order name: IV Saline Lock; Complete Time: 13:23 ec2 10/03 12:42 Order name: Labs collected and sent; Complete Time: 13:23 ec2 10/03 12:42 Order name: O2 Per Protocol; Complete Time: 13:23 ec2 10/03 12:42 Order name: O2 Sat Monitoring; Complete Time: 13:23 ec2 Administered Medications: No medications were administered Disposition Summary: 10/03/23 14:55 Discharge Ordered Condition: Stable ec2 Diagnosis - Acute systolic (congestive) heart failure ec2 - Dyspnea ec2 - Medication Refill ec2 Followup: ec2 - With: Private Physician - When: - Reason: Recheck today's complaints Discharge Instructions: - Discharge Summary Sheet hb - Heart Failure Exacerbation ec2 Forms: - Medication Reconciliation Form ec2 - Thank You Letter ec2 - Antibiotic Education ec2 - Prescription Opioid Use ec2 - Patient Portal Instructions ec2 - Leadership Thank You Letter ec2 Prescriptions: - digoxin 125 mcg (0.125 mg) Oral tablet - take 1 tablet ORAL route every morning; 30 tablet; Refills: 0, Product ec2 Selection Permitted - Lasix 40 mg Oral Tablet - take 1 tablet ORAL route once daily for 30 days; 30 tablet; Refills: 0, Product ec2 Selection Permitted Signatures: Dispatcher [employer] EDDenise Madrigal RN RN hb Benton, Danielle, RN RN db Corral, Edwin, MD MD ec2 Corrections: (The following items were deleted from the chart) 14:37 13:55 ED course: CBC shows slight leukocytosis. Metabolic profile shows appropriate ec2 renal function, slightly elevated LFTs and also with T. bili of 2.4. Troponin is within normal ranges. Chest x-ray shows interstitial edema as well as cardiomegaly. Negative flu and COVID testing. Will obtain a CT scan of the abdomen pelvis given the LFT abnormalities. Additionally patient does meet SIRS criteria with the documented heart rate as well as the WBC of 13, currently I do not have evidence of pneumonia or an acute bacterial infection, accordingly will defer antibiotic therapy at this time. . ec2
[2023-10-03 16:23] VITALS: TEMP 97.8
[2023-10-03 16:32] VITALS: BP 141/105; O2SAT 99
--- NOTE | 2023-10-05 12:26 | EKG ---
Test Date: 2023-10-03 Test Time: 12:39:13 Website Designer: MB MEASUREMENT RESULTS: Intervals: Rate: 101 AZ: 152 QRSD: 94 QT: 380 QTc: 492 [place]: P: 39 AZ: 152 QRS: -55 T: 88 INTERPRETIVE STATEMENTS: Sinus tachycardia Biatrial enlargement Left axis deviation Nonspecific ST and T wave abnormality Abnormal ECG Compared to ECG 09/13/2023 10:54:11 Left-axis deviation now present Left ventricular hypertrophy no longer present ST (T wave) deviation still present Electronically Signed On 10-05-23 12:20:45 WASHER OFF by Romulo Coon
== END ==
LOC: ER 12:27
DX: I50.21 Acute systolic (congestive) heart failure (principal); Z76.0 Encounter for issue of repeat prescription
CPT/HCPCS: 36415; 71045; 74177; 80053; 83880; 84484; 85025; 87804; 87811; 93005; 99284; Q9967

== ENCOUNTER → 2023-10-13 | Emergency (ER) | payer SELFPAY ==
[~2023-10-13] MED LIST: FUROSEMIDE 40 MG/4 ML VIAL ONE; Magnesium Sulfate 2gm IVPB 2 G/50 ML BAG IV ONE; ONDANSETRON 4 MG/2 ML VIAL ONE; POTASSIUM CL SA 10 MEQ TAB PO ONE
[2023-10-14 01:22] LABS: Absolute Lymphocytes (CBC) 1.4 K/uL (0.7-4.9); Hematocrit 41.6 % (39.6-49.0); Lymphocytes % 14.2 % (15.3-44.8); MCV 81.2 fL (80-100); MPV 8.7 fL (7.6-11.3); Platelets 232 thou/uL (152-406); RBC Red Blood Cell Count 5.12 M/uL (4.33-5.43)
[2023-10-14 01:41] LABS: Potassium 3.5 mEq/L (3.5-5.1); Troponin High Sensitivity 46.5 pg/mL (<58.9)
--- NOTE | 2023-10-14 02:07 | ER ---
Nurse's Notes [facility] Name: Sabino Simon Age: 28 yrs Sex: Male : 1995 Arrival Date: 10/13/2023 Time: 23:59 Bed 7 Private MD: Diagnosis: Heart failure, unspecified Presentation: 10/14 00:00 Chief complaint: Patient states: DIFFICULTY BREATHING X1 WEEK. GOT WORSE THIS MORNING. jj7 VOMITED A FEW TIMES. Coronavirus screen: At this time, the client does not indicate any symptoms associated with coronavirus-19. Ebola Screen: No symptoms or risks identified at this time. Initial Sepsis Screen: Does the patient meet any 2 criteria? HR > 90 bpm. Does the patient have a suspected source of infection? No. Patient's initial sepsis screen is negative. Risk Assessment: Do you want to hurt yourself or someone else? Patient reports no desire to harm self or others. Onset of symptoms was October 13, 2023. 00:00 Acuity: RODRIGO 3 jj7 00:00 Method Of Arrival: EMS: [facility] jj7 Triage Assessment: 00:00 General: Appears in no apparent distress. comfortable, Behavior is calm, cooperative, jj7 appropriate for age. Pain: Denies pain. Respiratory: Reports DIFFICULTY BREATHING. Historical: - Allergies: 00:15 No Known Allergies; jj7 - PMHx: 00:15 Anxiety; Congestive heart failure; depressive disorder; diabetes mellitus; Hypertensive jj7 disorder; - PSHx: 00:15 None; jj7 - Immunization history:: Adult Immunizations up to date. - Social history:: Smoking status: Patient denies any tobacco usage or history of. Patient/guardian denies using alcohol, street drugs. Screenin:00 [facility] ED Fall Risk Assessment (Adult) History of falling in the last 3 months, jj7 including since admission No falls in past 3 months (0 pts) Confusion or Disorientation No (0 pts) Intoxicated or Sedated No (0 pts) Impaired Gait No (0 pts) Mobility Assist Device Used No (0 pt) Altered Elimination No (0 pt) Score/Fall Risk Level 0 - 2 = Low Risk Oriented to surroundings, Maintained a safe environment, Educated pt \T\ family on fall prevention, incl call for assistance when getting out of bed. Abuse screen: Denies threats or abuse. Nutritional screening: No deficits noted. Tuberculosis screening: No symptoms or risk factors identified. Assessment: 00:00 Reassessment: SEE TRIAGE ASSESSMENT. j Vital Signs: 00:00 BP 144 / 105; Pulse 111; Resp 18; Temp 98.7; Pulse Ox 100% ; Weight 92.99 kg; Height 5 jj7 ft. 6 in. ; Pain 0/10; 01:00 BP 132 / 76; Pulse 99; Resp 18; Pulse Ox 99% ; Pain 0/10; jj7 00:00 Body Mass Index 33.09 (92.99 kg, 167.64 cm) jj7 00:00 Pain Scale: Adult jj7 01:00 Pain Scale: Adult jj7 ED Course: 00:00 Patient arrived in ED. jr12 00:00 Arm band placed on right wrist. jj7 00:00 Patient has correct armband on for positive identification. Placed in gown. Bed in low jj7 position. Call light in reach. Side rails up X 1. Client placed on continuous cardiac and pulse oximetry monitoring. NIBP monitoring applied. media monitor on. Warm blanket given. 00:00 No provider procedures requiring assistance completed. jj7 00:00 Maintain EMS IV. Dressing intact. Good blood return noted. Site clean \T\ dry. Gauge \T\ jj 7 site: 20G LEFT HAND. 00:01 Hardik Oliveira MD is Attending Physician. ec2 00:15 Triage completed. jj7 00:27 XRAY Chest (1 view) In Process Unspecified. EDMS 01:14 Basic Metabolic Panel Sent. jj7 01:14 CBC with Diff Sent. jj7 01:14 NT PRO-BNP Sent. jj7 01:14 Troponin HS Sent. jj7 Administered Medications: 01:14 Drug: Ondansetron IVP 4 mg IVP once; over 2 minutes Route: IVP; Site: left hand; jj7 01:23 Drug: Magnesium Sulfate IVPB 2 grams IVPB once over 30 mins Route: IVPB; Infused Over: jj7 30 mins; Site: left hand; 02:29 Drug: Furosemide IVP 80 mg IVP once; give over 2 minutes Route: IVP; Site: left hand; jj7 02:29 Drug: Potassium Chloride PO 40 mEq PO once Route: PO; jj7 Medication: 00:00 VIS not applicable for this client. jj7 Outcome: 02:06 Discharge ordered by MD. almanza 03:15 Patient left the ED. jj7 Signatures: Dispatcher [employer] Chau Jimenez RN RN jj7 Hardik Oliveira MD MD ec2 Iris Ortiz 12 Corrections: (The following items were deleted from the chart) 00:17 00:00 Method Of Arrival: EMS: [facility] jj7 jj7 00: 00:15 General: Appears in no apparent distress. comfortable, Behavior is calm, jj7 cooperative, appropriate for age, jj7 : 00:15 Pain: Denies pain. jj7 jj7 00: 00:15 Respiratory: Reports DIFFICULTY BREATHING jj7 jj7 00: 00:15 Arm band placed on right wrist. jj7 jj7
--- NOTE | 2023-10-14 02:07 | EDPHYS ---
Physician Documentation [facility] Name: Sabino Simon Age: 28 yrs Sex: Male : 1995 Arrival Date: 10/13/2023 Time: 23:59 Bed 7 Private MD: ED Physician Hardik Oliveira HPI: 10/14 00:05 This 28 yrs old Male presents to ER via Unassigned with complaints of chest ec2 tightness. 00:05 Patient arrives today for evaluation of chest tightness and shortness of breath. ec2 Patient with history of hypertension as well as CHF, states he has been having progressive symptoms. Patient reports that he has a history of CHF however has not been seen by neuropsychology service director. He is on digoxin and Lasix which he takes regularly. Denies any significant leg swelling. Reports no cough or cold symptoms.. Historical: - Allergies: 00:15 No Known Allergies; jj7 - PMHx: 00:15 Anxiety; Congestive heart failure; depressive disorder; diabetes mellitus; Hypertensive jj7 disorder; - PSHx: 00:15 None; jj7 - Immunization history:: Adult Immunizations up to date. - Social history:: Smoking status: Patient denies any tobacco usage or history of. Patient/guardian denies using alcohol, street drugs. ROS: 00:05 Constitutional: as per hpi ec2 Exam: 00:05 Constitutional: GEN: NAD Head: atraumatic Eyes: EOMI Ears: External ears are ec2 normal. CV: Tachycardia, no lower extremity edema appreciated. LUNGS: no respiratory distress, no wheezes, rales, or rhonchi ABD: non-distended SKIN: no evidence of rashes MSK: no evidence of trauma NEURO: moves all extremities equally Vital Signs: 00:00 BP 144 / 105; Pulse 111; Resp 18; Temp 98.7; Pulse Ox 100% ; Weight 92.99 kg; Height 5 jj7 ft. 6 in. ; Pain 0/10; 01:00 BP 132 / 76; Pulse 99; Resp 18; Pulse Ox 99% ; Pain 0/10; jj7 00:00 Body Mass Index 33.09 (92.99 kg, 167.64 cm) jj7 00:00 Pain Scale: Adult jj7 01:00 Pain Scale: Adult jj7 MDM: 00:01 Patient medically screened. ec2 00:05 Data reviewed: vital signs. ec2 00:07 ED course: Patient arrives today for evaluation of chest headaches. Examination ec2 remarkable for well-appearing nontoxic individual is otherwise in no acute distress with a reassuring examination. Will obtain lab work, EKG, chest x-ray for further assessment of the patient complaint. Currently considering volume overload, ACS, pneumonia.. 01:03 ED course: EKG independently reviewed and interpreted by me, shows sinus tachycardia, ec2 rate 104, no acute ST segment elevations, QTc prolongation noted with a QTc of 533. Will give the patient magnesium.. 01:13 ED course: Chest x-ray shows cardiomegaly with vascular congestion. Consistent with ec2 patient's known history of CHF.. 01:35 ED course: CBC is reassuring.. ec2 01:45 ED course: Metabolic profile is reassuring. BNP elevated at 2700. Troponin within ec2 normal ranges. Suspect component of volume overload causing the patient's shortness of breath and chest tightness. Will have him increase his Lasix frequency to increase urine output and have him follow-up with his primary care doctor. Return precautions given. . 10/14 00:01 Order name: Basic Metabolic Panel; Complete Time: :45 ec2 10/14 00:01 Order name: CBC with Diff; Complete Time: :35 ec2 10/14 00:01 Order name: NT PRO-BNP; Complete Time: :45 ec2 10/14 00:01 Order name: Troponin HS; Complete Time: :45 ec2 10/14 00:01 Order name: XRAY Chest (1 view) ec2 10/14 00:01 Order name: EKG; Complete Time: 00:02 ec2 10/14 00:01 Order name: Cardiac monitoring; Complete Time: :45 ec2 10/14 00:01 Order name: EKG - Nurse/Tech; Complete Time: : ec2 10/14 00:01 Order name: IV Saline Lock; Complete Time: : ec2 10/14 00:01 Order name: Labs collected and sent; Complete Time: : ec2 10/14 00:01 Order name: O2 Per Protocol; Complete Time: ec2 10/14 00:01 Order name: O2 Sat Monitoring; Complete Time: 01:14 ec2 Administered Medications: 01:14 Drug: Ondansetron IVP 4 mg IVP once; over 2 minutes Route: IVP; Site: left hand; 7 01:23 Drug: Magnesium Sulfate IVPB 2 grams IVPB once over 30 mins Route: IVPB; Infused Over: j7 30 mins; Site: left hand; 02:29 Drug: Furosemide IVP 80 mg IVP once; give over 2 minutes Route: IVP; Site: left hand; 7 02:29 Drug: Potassium Chloride PO 40 mEq PO once Route: PO; j7 Disposition Summary: 10/14/23 02:06 Discharge Ordered Notes: Location: Home ec2 Condition: Stable ec2 Diagnosis - Heart failure, unspecified ec2 Followup: ec2 - With: Private Physician - When: - Reason: Recheck today's complaints Discharge Instructions: - Discharge Summary Sheet ec2 - Heart Failure, Diagnosis ec2 Forms: - Medication Reconciliation Form ec2 - Thank You Letter ec2 - Antibiotic Education ec2 - Prescription Opioid Use ec2 - Patient Portal Instructions ec2 - Leadership Thank You Letter ec2 Signatures: Dispatcher [employer] Chau Jimenez RN RN jj7 Hardik Oliveira MD MD ec2
[2023-10-14 05:28] VITALS: BP 132/76; TEMP 98.7; O2SAT 99
--- NOTE | 2023-10-15 11:24 | RAD REPORT ---
EXAM DESCRIPTION: RAD - Chest Single View - 10/14/2023 12:26 am CLINICAL HISTORY: 28 years Male SOB COMPARISON: None TECHNIQUE: AP view of the chest was obtained. FINDINGS: Cardiac silhouette is enlarged. Central vessels are increased and indistinct. No effusion on right. Left costophrenic angle region not included. No abnormal airspace opacities lowell aterally. No pneumothorax. IMPRESSION: Enlarged heart with moderate central congestion. No infiltrates seen. Electronically signed by: Roxanne Wilder MD 10/14/2023 12:34 AM [employer] Due to temporary technical issues with the PACS/Fluency reporting system, reports are being signed by the in house radiologist without review as a courtesy to ensure prompt reporting. The interpreting r adiologist is fully responsible for the content of the report.
== END ==
LOC: ER 23:59
DX: I50.9 Heart failure, unspecified (principal); I10 Essential (primary) hypertension
CPT/HCPCS: 71045; 93005

== ENCOUNTER → 2023-10-19 | Emergency (ER) | payer SELFPAY ==
[~2023-10-19] MED LIST changes: +ALBUTEROL 2.5 MG/3 ML NEB SOL ONE; -FUROSEMIDE 40 MG/4 ML VIAL ONE; +HYDROCODONE/CHLORPHEN 5 ML/OSYR ONE; +IPRATROPIUM BROM 0.5MG/2.5ML ONE; -Magnesium Sulfate 2gm IVPB 2 G/50 ML BAG IV ONE; +NA CHLORIDE 0.9% 1,000 ML ONE; -POTASSIUM CL SA 10 MEQ TAB PO ONE
[2023-10-19 13:14] LABS: Absolute Lymphocytes (CBC) 3.5 K/uL (0.7-4.9); Hematocrit 44.2 % (39.6-49.0); Lymphocytes % 32.5 % (15.3-44.8); MCV 81.3 fL (80-100); MPV 8.6 fL (7.6-11.3); Platelets 251 thou/uL (152-406); RBC Red Blood Cell Count 5.44 M/uL (4.33-5.43)
[2023-10-19 13:27] LABS: SARS-CoV-2 Antigen Rapid Res Negative (Negative)
[2023-10-19 13:30] LABS: Bilirubin Total 2.1 mg/dL (0.2-1.0); Protein, Total 7.2 g/dL (6.4-8.2)
--- NOTE | 2023-10-19 14:06 | RAD REPORT ---
EXAM DESCRIPTION: [place] Single View10/19/2023 1:43 pm CLINICAL HISTORY: Chest pain;Cough COMPARISON: 10/14/2022 and 10/03/2022 radiographs TECHNIQUE: Portable AP view of the chest. FINDINGS: The lungs are clear. No pneumothorax or effusion. Stable mild cardiomegaly. Mediastinal c ontours are unremarkable. IMPRESSION: No acute pulmonary process. Stable mild cardiomegaly.
--- NOTE | 2023-10-19 14:09 | ER ---
Nurse's Notes [facility] Name: Sabino Simon Age: 28 yrs Sex: Male : 1995 Arrival Date: 10/19/2023 Time: 12:03 Bed 12 Private MD: Diagnosis: Acute bronchitis, unspecified;Hemoptysis Presentation: 10/19 12:05 Chief complaint: EMS states: toned out for N/V since 0300 this morning. Pt reports ld1 emesis being min red blood. Coronavirus screen: At this time, the client does not indicate any symptoms associated with coronavirus-19. Ebola Screen: No symptoms or risks identified at this time. Initial Sepsis Screen: Does the patient meet any 2 criteria? No. Patient's initial sepsis screen is negative. Does the patient have a suspected source of infection? No. Patient's initial sepsis screen is negative. Risk Assessment: Do you want to hurt yourself or someone else? Patient reports no desire to harm self or others. Onset of symptoms was October 19, 2023. 12:05 Method Of Arrival: EMS: [facility] ld1 12:05 Acuity: RODRIGO 4 ld1 12:21 Acuity: RODRIGO 3 iw Triage Assessment: 12:06 General: Appears in no apparent distress. comfortable, Behavior is calm, cooperative, ld1 appropriate for age. Pain: Denies pain. EENT: No signs and/or symptoms were reported regarding the EENT system. Neuro: Level of Consciousness is awake, alert, obeys commands, Oriented to person, place, time, situation, Appropriate for age. Cardiovascular: Capillary refill < 3 seconds Patient's skin is warm and dry. Rhythm is sinus tachycardia. Respiratory: Airway is patent Respiratory effort is even, unlabored. GI: Abdomen is flat, non-distended, Reports nausea, vomiting. : No signs and/or symptoms were reported regarding the genitourinary system. Derm: No signs and/or symptoms reported regarding the dermatologic system. Musculoskeletal: No signs and/or symptoms reported regarding the musculoskeletal system. Historical: - Allergies: 12:06 No Known Allergies; ld1 - PMHx: 12:06 Anxiety; Congestive heart failure; depressive disorder; diabetes mellitus; Hypertensive ld1 disorder; - Immunization history:: Adult Immunizations up to date. - Social history:: Smoking status: Patient denies any tobacco usage or history of. Patient/guardian denies using alcohol. Screenin:34 [facility] ED Fall Risk Assessment (Adult) History of falling in the last 3 months, kc6 including since admission No falls in past 3 months (0 pts) Confusion or Disorientation No (0 pts) Intoxicated or Sedated No (0 pts) Impaired Gait No (0 pts) Mobility Assist Device Used No (0 pt) Altered Elimination No (0 pt) Score/Fall Risk Level 0 - 2 = Low Risk. Abuse screen: Denies threats or abuse. Denies injuries from another. Nutritional screening: No deficits noted. Tuberculosis screening: No symptoms or risk factors identified. Assessment: 14:34 General: Appears in no apparent distress. comfortable, well groomed, well developed, kc6 Behavior is calm, cooperative, appropriate for age. Pain: Denies pain. Neuro: Level of Consciousness is awake, alert, obeys commands, Oriented to person, place, time, situation, Appropriate for age. Cardiovascular: Capillary refill < 3 seconds. Respiratory: Airway is patent Trachea midline Respiratory effort is even, unlabored, Respiratory pattern is regular, symmetrical. GI: Abdomen is flat, non-distended, Bowel sounds present X 4 quads. Abd is soft and non tender X 4 quads. Reports nausea, vomiting, Patient currently denies diarrhea. : No signs and/or symptoms were reported regarding the genitourinary system. EENT: No signs and/or symptoms were reported regarding the EENT system. Derm: No signs and/or symptoms reported regarding the dermatologic system. Skin is intact, is healthy with good turgor, Skin is pink, warm \T\ dry. Musculoskeletal: No signs and/or symptoms reported regarding the musculoskeletal system. Circulation, motion, and sensation intact. Capillary refill < 3 seconds, Range of motion: intact in all extremities. Vital Signs: 12:05 BP 150 / 95; Pulse 110; Resp 18; Temp 98.5(TE); Pulse Ox 97% on R/A; Weight 94.8 kg; ld1 Height 5 ft. 6 in. ; Pain 0/10; 14:51 BP 155 / 106; Pulse 110; Resp 17; Temp 98.2(O); Pulse Ox 99% ; jl7 12:05 Body Mass Index 33.73 (94.80 kg, 167.64 cm) ld1 12:05 Pain Scale: Adult ld1 ED Course: 12:05 Patient arrived in ED. rg4 12:06 Triage completed. ld1 12:06 Arm band placed on right wrist. ld1 12:08 Melanie Lezama PA-C is PHCP. sb4 12:08 Yonis Buchanan MD is Attending Physician. sb4 13:43 Chest Single View XRAY In Process Unspecified. EDMS 14:20 Anusha Pickett, RN is Primary Nurse. kc6 14:33 Patient maintains SpO2 saturation greater than 95% on room air. kc6 14:34 Patient has correct armband on for positive identification. Bed in low position. Call kc6 light in reach. Side rails up X 1. Client placed on continuous cardiac and pulse oximetry monitoring. NIBP monitoring applied. 14:49 Provided Education on: use of medeications. jl7 14:49 No provider procedures requiring assistance completed. IV discontinued, intact, jl7 bleeding controlled, No redness/swelling at site. Pressure dressing applied. Administered Medications: 14:50 Discontinued: ns 0.9% 1000 ml IV at 1 bolus Per protocol; 1000 mL bolus jl7 14:31 Drug: NS 0.9% IV 1000 ml IV at 1 bolus Per protocol; 1000 mL bolus Route: IV; Rate: 1 kc6 bolus; Site: left antecubital; 14:50 Follow up: IV Status: Completed infusion; IV Intake: 100ml jl7 14:31 Drug: Ondansetron IVP 4 mg IVP once; over 2 minutes Route: IVP; Site: left antecubital; kc6 14:50 Follow up: Response: No adverse reaction; Nausea is decreased jl7 14:31 Drug: DuoNeb Nebulize (3:1) (2.5 mg - 0.5 mg) 3 ml Nebulizer once Route: Nebulizer; kc6 14:50 Follow up: Response: No adverse reaction jl7 14:31 Drug: Tussionex Pennkinetic ER PO Suspension 5 ml PO once Route: PO; kc6 14:50 Follow up: Response: No adverse reaction jl7 Medication: 14:49 VIS not applicable for this client. jl7 Intake: 14:50 IV: 100ml; Total: 100ml. jl7 Outcome: 14:08 Discharge ordered by . sb4 14:49 Discharged to home ambulatory, jl7 14:49 Condition: stable 14:49 Discharge instructions given to patient, Instructed on discharge instructions, follow up and referral plans. medication usage, Demonstrated understanding of instructions, follow-up care, medications, Prescriptions given X 2, 14:51 Patient left the ED. jl7 Signatures: Dispatcher [employer] EDMS Delilah Christensen, Cathy Hinds RN rg4 Torrey Hagan RN RN jl7 Rissa Sood RN RN ld1 Anusha Pickett RN RN [email or web address] Melanie Lezama, PA-C PA-C sb4 Corrections: (The following items were deleted from the chart) 12:06 12:05 Chief complaint: EMS states: toned out for N/V since 0300 this morning ld1 ld1
--- NOTE | 2023-10-19 14:09 | EDPHYS ---
Physician Documentation [facility] Name: Sabino Simon Age: 28 yrs Sex: Male : 1995 Arrival Date: 10/19/2023 Time: 12:03 Bed 12 Private MD: ED Physician Yonis Buchanan HPI: 10/19 13:07 This 28 yrs old Male presents to ER via EMS with complaints of Cough. sb4 13:08 The patient or guardian reports cough, flu symptoms. Onset: The symptoms/episode sb4 began/occurred last week. Associated signs and symptoms: Pertinent positives:. 13:15 feeling sick for 1 week. concerned because he coughed up blood today. sb4 Historical: - Allergies: 12:06 No Known Allergies; ld1 - PMHx: 12:06 Anxiety; Congestive heart failure; depressive disorder; diabetes mellitus; Hypertensive ld1 disorder; - Immunization history:: Adult Immunizations up to date. - Social history:: Smoking status: Patient denies any tobacco usage or history of. Patient/guardian denies using alcohol. ROS: 13:15 Constitutional: Positive for malaise, sb4 13:15 Respiratory: Positive for cough, hemoptysis, shortness of breath, 13:15 All other systems are negative, 14:18 Cardiovascular: Negative for chest pain, palpitations, and edema, sb4 Exam: 13:15 Constitutional: This is a well developed, well nourished patient who is awake, alert, sb4 and in no acute distress. Head/Face: Normocephalic, atraumatic. Eyes: Extra-ocular motions intact. Periorbital areas with no swelling, redness, or edema. ENT: Mucous membranes moist. Cardiovascular: Regular rate and rhythm with a normal S1 and S2. Respiratory: Lungs have equal breath sounds bilaterally, clear to auscultation and percussion. No rales, rhonchi or wheezes noted. No increased work of breathing, no retractions or nasal flaring. Abdomen/GI: Soft, non-tender, no distension. Skin: Warm, dry with normal turgor. Normal color with no rashes, no lesions, and no evidence of cellulitis. MS/ Extremity: Pulses equal, no cyanosis. Neurovascular intact. Full, normal range of motion. Neuro: Awake and alert, GCS 15, oriented to person, place, time, and situation. Motor strength 5/5 in all extremities. Sensory grossly intact. Vital Signs: 12:05 BP 150 / 95; Pulse 110; Resp 18; Temp 98.5(TE); Pulse Ox 97% on R/A; Weight 94.8 kg; ld1 Height 5 ft. 6 in. ; Pain 0/10; 14:51 BP 155 / 106; Pulse 110; Resp 17; Temp 98.2(O); Pulse Ox 99% ; jl7 12:05 Body Mass Index 33.73 (94.80 kg, 167.64 cm) ld1 12:05 Pain Scale: Adult ld1 MDM: 12:08 Patient medically screened. sb4 13:15 Differential Diagnosis: Bronchitis Influenza Upper Respiratory Infection Viral Syndrome sb4 Pneumonia. 14:08 Data reviewed: vital signs, nurses notes, lab test result(s), radiologic studies, and sb4 as a result, I will discharge patient. Care significantly affected by the following chronic conditions: Diabetes, Hypertension, Congestive Heart Failure. Counseling: I had a detailed discussion with the patient and/or guardian regarding the historical points, exam findings, and any diagnostic results supporting the discharge/admit diagnosis, the presence of at least one elevated blood pressure reading (>120/80) during this emergency department visit, lab results, radiology results, to return to the emergency department if symptoms worsen or persist or if there are any questions or concerns that arise at home. 10/19 12:10 Order name: CBC with Diff; Complete Time: 13:21 sb4 10/19 12:10 Order name: CMP; Complete Time: 13:32 sb4 10/19 12:10 Order name: Lipase; Complete Time: 13:32 sb4 10/19 13:00 Order name: SARS RAPID; Complete Time: 13:28 sb4 10/19 13:00 Order name: Flu; Complete Time: 13:32 sb4 10/19 13:00 Order name: Chest Single View XRAY; Complete Time: 14:07 sb4 10/19 12:10 Order name: IV Saline Lock; Complete Time: 14:20 sb4 10/19 12:10 Order name: Labs collected and sent; Complete Time: 14:20 sb4 Administered Medications: 14:50 Discontinued: ns 0.9% 1000 ml IV at 1 bolus Per protocol; 1000 mL bolus jl7 14:31 Drug: NS 0.9% IV 1000 ml IV at 1 bolus Per protocol; 1000 mL bolus Route: IV; Rate: 1 kc6 bolus; Site: left antecubital; 14:50 Follow up: IV Status: Completed infusion; IV Intake: 100ml jl7 14:31 Drug: Ondansetron IVP 4 mg IVP once; over 2 minutes Route: IVP; Site: left antecubital; kc6 14:50 Follow up: Response: No adverse reaction; Nausea is decreased jl7 14:31 Drug: DuoNeb Nebulize (3:1) (2.5 mg - 0.5 mg) 3 ml Nebulizer once Route: Nebulizer; kc6 14:50 Follow up: Response: No adverse reaction jl7 14:31 Drug: Tussionex Pennkinetic ER PO Suspension 5 ml PO once Route: PO; kc6 14:50 Follow up: Response: No adverse reaction jl7 Disposition: 18:45 Co-signature as Attending Physician, Yonis Buchanan MD I reviewed the patient's care rt provided by the Advanced Practice Provider and agree with the diagnosis and treatment plan. Disposition Summary: 10/19/23 14:08 Discharge Ordered Notes: Location: Home sb4 Problem: new sb4 Symptoms: have improved sb4 Condition: Stable sb4 Diagnosis - Acute bronchitis, unspecified sb4 - Hemoptysis sb4 Followup: sb4 - With: Emergency Department - When: As needed - Reason: Trouble breathing, Worsening of condition Discharge Instructions: - Discharge Summary Sheet sb4 - Acute Bronchitis, Adult sb4 - Hemoptysis sb4 Forms: - Medication Reconciliation Form sb4 - Thank You Letter sb4 - Antibiotic Education sb4 - Prescription Opioid Use sb4 - Patient Portal Instructions sb4 - Leadership Thank You Letter sb4 Prescriptions: - albuterol sulfate 90 mcg/actuation Inhalation HFA Aerosol Inhaler - inhale 2 puff INHALATION route every 4 to 6 hours as needed for shortness of sb4 breath or wheezing; 1 Applicator; Refills: 0, Product Selection Permitted - Prednisone 20 mg Oral Tablet - take 1 tablet ORAL route every 12 hours for 5 days; 10 tablet; Refills: 0, sb4 Product Selection Permitted Signatures: Dispatcher [place] Rissa Mullen RN RN ld1 Anusha Pickett RN RN kc6 Melanie Lezama PA-C PA-C sb4 Yonis Buchanan MD MD rt Torrey Hagan RN jl7
[2023-10-19 15:33] VITALS: BP 150/95; TEMP 98.5; O2SAT 97
== END ==
LOC: ER 12:03
DX: J20.9 Acute bronchitis, unspecified (principal); F41.9 Anxiety disorder, unspecified; I50.9 Heart failure, unspecified; F32.A Depression, unspecified; E11.9 Type 2 diabetes mellitus without complications; I10 Essential (primary) hypertension; Z11.52 Encounter for screening for COVID-19
CPT/HCPCS: 36415; 71045; 80053; 83690; 85025; 87804; 87811; 94640; 96374; 99285; J2405; J7030; J7613; J7644

== ENCOUNTER 2024-07-26 12:22 | Observation (INO) | payer OTHER, SELFPAY ==
[2024-07-26 13:30] LABS: Absolute Basophils 0.1 K/uL (0-0.5); Absolute Eosinophils 0.3 K/uL (0-0.5); Absolute Lymphocytes (CBC) 2.7 K/uL (0.7-4.9); Absolute Monocytes 0.6 K/uL (0.1-1.3); Absolute Neutrophil 4.8 K/uL (1.8-8.0); Basophils % 0.8 % (0-1.3); Eosinophils % 3.6 % (0-4.4); Hematocrit 39.4 % (39.6-49.0); Hemoglobin 13.1 g/dL (13.6-17.9); MCH 28.7 pg (27.0-35.0); MCHC 33.2 g/dL (32.0-36.0); MCV 86.5 fL (80-100); MPV 9.4 fL (7.6-11.3); Monocytes % 7.5 % (3.3-12.3); Neutrophils % 56.1 % (41.7-73.7); Platelets 241 thou/uL (152-406); RBC Red Blood Cell Count 4.55 M/uL (4.33-5.43); Red Cell Distribution Width 13.6 % (12.1-15.2)
[2024-07-26 13:51] LABS: SARS-CoV-2 Antigen CONTROL BLUE LINE VIS/BG OK; SARS-CoV-2 Antigen Rapid Res Negative (Negative)
[2024-07-26 13:52] LABS: Albumin 3.3 g/dL (3.4-5.0); Anion Gap 9.4 mEq/L (5.0-15.0); Bilirubin Direct 0.4 mg/dL (0-0.2); Bilirubin Indirect, Calculated 0.9 mg/dL (0.2-0.8); Bilirubin Total 1.3 mg/dL (0.2-1.0); Globulin 3.2 g/dL (2.3-3.5); Magnesium 2.1 mg/dL (1.6-2.4); Potassium 3.4 mEq/L (3.5-5.1); Protein, Total 6.5 g/dL (6.4-8.2); Troponin High Sensitivity 26.8 pg/mL (<58.9)
[2024-07-26] MEDS ORDERED: FUROSEMIDE 40 MG/4 ML VIAL ONE (14:16)
--- NOTE | 2024-07-26 14:19 | ER ---
Nurse's Notes [facility] Name: Sabino Simon Age: 28 yrs Sex: Male : 1995 Arrival Date: 07/26/2024 Time: 12:22 Bed 5 Private MD: Diagnosis: CHF exacerbation Presentation: 07/26 12:41 Chief complaint: Patient states: has CHF, feels SOB had to sleep propped up, off meds iw for a couple weeks. Coronavirus screen: At this time, the client does not indicate any symptoms associated with coronavirus-19. Ebola Screen: No symptoms or risks identified at this time. Initial Sepsis Screen: Does the patient meet any 2 criteria? No. Patient's initial sepsis screen is negative. Does the patient have a suspected source of infection? No. Patient's initial sepsis screen is negative. Risk Assessment: Do you want to hurt yourself or someone else? Patient reports no desire to harm self or others. Onset of symptoms was July 25, 2024. 12:41 Method Of Arrival: Ambulatory iw 12:41 Acuity: RODRIGO 3 iw Historical: - Allergies: 12:42 No Known Allergies; iw - PMHx: 12:42 Anxiety; Congestive heart failure; depressive disorder; diabetes mellitus; Hypertensive iw disorder; - PSHx: 12:42 None; iw - Immunization history:: Adult Immunizations not up to date. - Infectious Disease History:: Denies. - Social history:: Smoking status: Patient denies any tobacco usage or history of. Screenin:34 [facility] ED Fall Risk Assessment (Adult) History of falling in the last 3 months, mb9 including since admission No falls in past 3 months (0 pts) Confusion or Disorientation No (0 pts) Intoxicated or Sedated No (0 pts) Impaired Gait No (0 pts) Mobility Assist Device Used No (0 pt) Altered Elimination No (0 pt) Score/Fall Risk Level 0 - 2 = Low Risk Oriented to surroundings, Maintained a safe environment, Educated pt \T\ family on fall prevention, incl call for assistance when getting out of bed. Abuse screen: Denies threats or abuse. Nutritional screening: No deficits noted. Tuberculosis screening: No symptoms or risk factors identified. Assessment: 13:33 General: Appears in no apparent distress. Behavior is calm, cooperative. Pain: Denies mb9 pain. Neuro: [place] Agitation-Sedation Scale (RASS): 0 - Alert and Calm Level of Consciousness is awake, alert, obeys commands, Oriented to person, place, time, situation, Appropriate for age. Cardiovascular: Reports shortness of breath, Denies chest pain, Heart tones S1 S2 present Patient's skin is warm and dry. Rhythm is regular. Respiratory: Reports shortness of breath at rest Airway is patent Respiratory effort is even, unlabored, Respiratory pattern is regular, symmetrical, Breath sounds are clear bilaterally. GI: Abdomen is round non-distended, Bowel sounds present X 4 quads. Abd is soft and non tender X 4 quads. : No signs and/or symptoms were reported regarding the genitourinary system. EENT: No signs and/or symptoms were reported regarding the EENT system. Derm: Skin is pink, warm \T\ dry. Musculoskeletal: Range of motion: intact in all extremities. 14:23 Reassessment: No changes from previously documented assessment. Patient and/or family mb9 updated on plan of care and expected duration. Pain level reassessed. Patient is alert, oriented x 3, equal unlabored respirations, skin warm/dry/pink. Vital Signs: 12:41 BP 142 / 106; Pulse 89; Resp 18; Temp 97.8; Pulse Ox 100% on R/A; Weight 99.79 kg; iw Height 5 ft. 6 in. ; 13:45 BP 130 / 84; Pulse 82; Resp 16; Pulse Ox 100% on R/A; db 14:24 BP 113 / 77; Pulse 83; Resp 16; Pulse Ox 100% on R/A; mb9 12:41 Body Mass Index 35.51 (99.79 kg, 167.64 cm) iw ED Course: 12:25 Patient arrived in ED. im 12:31 Emma Hope MD is Attending Physician. sp3 12:42 Triage completed. iw 12:43 Arm band placed on. iw 13:19 Maria Del Carmen Vyas RN is Primary Nurse. mb9 13:21 Inserted saline lock: 20 gauge in right antecubital area, using aseptic technique. ls5 Blood collected. 13:33 SARS RAPID Sent. ls5 13:33 Flu Sent. ls5 13:35 Placed in gown. Bed in low position. Call light in reach. Side rails up X 1. Provided mb9 Education on: press call light if needing anything. Client placed on continuous cardiac and pulse oximetry monitoring. NIBP monitoring applied. budget specialist on. 13:35 No provider procedures requiring assistance completed. mb9 14:08 XRAY Chest (1 view) In Process Unspecified. EDMS 14:15 Edis Tomlinson is Hospitalizing Provider. sp3 15:40 Patient admitted, IV remains in place. mb9 Administered Medications: 14:23 Drug: Furosemide IVP 40 mg IVP once; give over 2 minutes Route: IVP; Site: right mb9 antecubital; 15:40 Follow up: Response: No adverse reaction mb9 Medication: 13:35 VIS not applicable for this client. mb9 Outcome: 14:19 Decision to Hospitalize by Provider. sp3 15:40 Admitted to Med/surg accompanied by diana, room 224, mb9 15:40 Condition: stable 15:40 Instructed on the need for admit, 16:31 Patient left the ED. cm10 Signatures: Dispatcher [employer] EDMS Delilah Christensen, RN RN Emma Kelly MD MD sp3 Eloisa Arguelles, RN Maria Del Carmen Funes RN RN mb9 Deshawn Hickman ls5 Twila Sebastian Clarissa, RN RN cm10
--- NOTE | 2024-07-26 14:19 | EDPHYS ---
Physician Documentation [facility] Name: Sabino Simon Age: 28 yrs Sex: Male : 1995 Arrival Date: 07/26/2024 Time: 12:22 Bed 5 Private MD: ED Physician Emma Hope HPI: 07/26 13:28 This 28 yrs old Male presents to ER via Ambulatory with complaints of Shortness Of sp3 Breath, fatigue. 13:28 28-year-old male with a history of CHF, diabetes, hypertension, cardiomyopathy that sp3 presents to the ED with chief complaint shortness of breath and concern for CHF exacerbation. Patient states he has been out of his medications which include digoxin for 3 weeks secondary to a Medicaid issue where he was not able to be seen by his mixer slagman for refills. He states that over the last 2-3 nights he has had a sleep "propped up". He denies any headache, fever, chest pain, abdominal pain, nausea, vomiting, diarrhea, lower extremity edema, bleeding or any other signs or symptoms on ROS at this time. He does state that his abdomen feels more swollen which is what happens when he gets fluid overloaded.. Historical: - Allergies: 12:42 No Known Allergies; iw - PMHx: 12:42 Anxiety; Congestive heart failure; depressive disorder; diabetes mellitus; Hypertensive iw disorder; - PSHx: 12:42 None; iw - Immunization history:: Adult Immunizations not up to date. - Infectious Disease History:: Denies. - Social history:: Smoking status: Patient denies any tobacco usage or history of. ROS: 13:29 Constitutional: Negative for fever, chills, and weight loss, Eyes: Negative for injury, sp3 pain, redness, and discharge, ENT: Negative for injury, pain, and discharge, Neck: Negative for injury, pain, and swelling, Abdomen/GI: Negative for abdominal pain, nausea, vomiting, diarrhea, and constipation, MS/Extremity: Negative for injury and deformity, Skin: Negative for injury, rash, and discoloration, Neuro: Negative for headache, weakness, numbness, tingling, and seizure, Psych: Negative for depression, anxiety, suicide ideation, homicidal ideation, and hallucinations, Allergy/Immunology: Negative for hives, rash, and allergies, Endocrine: Negative for neck swelling, polydipsia, polyuria, polyphagia, and marked weight changes, Hematologic/Lymphatic: Negative for swollen nodes, abnormal bleeding, and unusual bruising, 13:29 All other systems are negative, Exam: 13:29 Constitutional: This is a well developed, well nourished patient who is awake, alert, sp3 and in no acute distress. Head/Face: Normocephalic, atraumatic. Eyes: Pupils equal round and reactive to light, extra-ocular motions intact. Lids and lashes normal. Conjunctiva and sclera are non-icteric and not injected. Cornea within normal limits. Periorbital areas with no swelling, redness, or edema. Neck: Trachea midline, no thyromegaly or masses palpated, and no cervical lymphadenopathy. Supple, full range of motion without nuchal rigidity, or vertebral point tenderness. No Meningismus. Chest/axilla: Normal chest wall appearance and motion. Nontender with no deformity. No lesions are appreciated. Cardiovascular: Regular rate and rhythm with a normal S1 and S2. No gallops, murmurs, or rubs. Normal PMI, no JVD. No pulse deficits. Abdomen/GI: Soft, non-tender, with normal bowel sounds. No distension or tympany. No guarding or rebound. No evidence of tenderness throughout. Back: No spinal tenderness. No costovertebral tenderness. Full range of motion. Skin: Warm, dry with normal turgor. Normal color with no rashes, no lesions, and no evidence of cellulitis. MS/ Extremity: Pulses equal, no cyanosis. Neurovascular intact. Full, normal range of motion. Neuro: Awake and alert, GCS 15, oriented to person, place, time, and situation. Cranial nerves II-XII grossly intact. Motor strength 5/5 in all extremities. Sensory grossly intact. Cerebellar exam normal. Normal gait. Psych: Awake, alert, with orientation to person, place and time. Behavior, mood, and affect are within normal limits. 13:29 Respiratory: Mild peripheral edema and rales noted, 13:32 ECG was reviewed by the Attending Physician. EKG demonstrates normal sinus rhythm at 83 sp3 bpm with normal intervals, normal QRS, normal axis, nonspecific diffuse ST/T changes without evidence of acute ischemia. Vital Signs: 12:41 BP 142 / 106; Pulse 89; Resp 18; Temp 97.8; Pulse Ox 100% on R/A; Weight 99.79 kg; iw Height 5 ft. 6 in. ; 13:45 BP 130 / 84; Pulse 82; Resp 16; Pulse Ox 100% on R/A; db 14:24 BP 113 / 77; Pulse 83; Resp 16; Pulse Ox 100% on R/A; mb9 12:41 Body Mass Index 35.51 (99.79 kg, 167.64 cm) iw MDM: 12:58 Medical Screening Exam initiated 13:30 Data reviewed: vital signs, nurses notes, lab test result(s), EKG, radiologic studies. sp3 ED course: 28-year-old male with PMH above now with dyspnea and is out of his medications. Differential diagnoses include CHF exacerbation, acute coronary syndrome, electrolyte abnormality, pneumonia, among others. Workup will include EKG, chest x-ray general laboratory values and supportive care. Disposition pending workup and patient course.. 07/26 12:59 Order name: Basic Metabolic Panel; Complete Time: 14:08 3 07/26 12:59 Order name: CBC with Diff; Complete Time: 14:3 07/26 12:59 Order name: LFT's; Complete Time: 14:3 07/26 12:59 Order name: Magnesium; Complete Time: 14:3 07/26 12:59 Order name: NT PRO-BNP; Complete Time: 14:08 07/26 12:59 Order name: Troponin HS; Complete Time: 14:08 07/26 12:59 Order name: Flu; Complete Time: 14:08 3 07/26 12:59 Order name: SARS RAPID; Complete Time: 14:08 3 07/26 12:59 Order name: XRAY Chest (1 view); Complete Time: 16:05 3 07/26 12:59 Order name: Cardiac monitoring; Complete Time: 13:30 3 07/26 12:59 Order name: EKG - Nurse/Tech; Complete Time: 13:30 07/26 12:59 Order name: IV Saline Lock; Complete Time: 13:21 07/26 12:59 Order name: Labs collected and sent; Complete Time: 13:21 3 07/26 12:59 Order name: O2 Per Protocol; Complete Time: 13:30 sp3 07/26 12:59 Order name: O2 Sat Monitoring; Complete Time: 13:30 sp3 Administered Medications: 14:23 Drug: Furosemide IVP 40 mg IVP once; give over 2 minutes Route: IVP; Site: right mb9 antecubital; 15:40 Follow up: Response: No adverse reaction mb9 Disposition Summary: 07/26/24 14:19 Hospitalization Ordered Notes: Hospitalization Status: Observation sp3 Provider: Edis Tomlinson sp3 Location: Telemetry/MedSurg (observation) sp3 Condition: Stable sp3 Problem: an acute exacerbation sp3 Symptoms: have worsened sp3 Bed/Room Type: Standard sp3 Room Assignment: 224(07/26/24 14:54) bd Diagnosis - CHF exacerbation sp3 Forms: - Medication Reconciliation Form sp3 - SBAR form sp3 - Leadership Thank You Letter sp3 Signatures: Dispatcher [employer] EDMS Kacy Chamberlain Irene, RN RN iw Patel, Setul, MD MD sp3 Maria Del Carmen Vyas RN RN mb9 Corrections: (The following items were deleted from the chart) 12:59 12:59 BASIC METABOLIC PANEL+C.LAB.BRZ ordered. EDMS EDMS 12:59 12:59 CBC+H.LAB.BRZ ordered. EDMS EDMS 12:59 12:59 HEPATIC FUNCTION+C.LAB.BRZ ordered. EDMS EDMS 12:59 12:59 MAGNESIUM+C.LAB.BRZ ordered. EDMS EDMS 12:59 12:59 PROBNP+C.LAB.BRZ ordered. EDMS EDMS 12:59 12:59 Troponin High Sensitivity+C.LAB.BRZ ordered. EDMS EDMS 12:59 12:59 Influenza Screen (A \\T\\ B)+BA.LAB.BRZ ordered. EDMS EDMS 12:59 12:59 SARS-COV-2 Antigen Rapid+I.LAB.BRZ ordered. EDMS EDMS 12:59 12:59 Chest Single View+RAD.RAD.BRZ ordered. EDMS EDMS 13:32 13:30 ECG was reviewed by the Attending Physician. EKG demonstrates normal sinus rhythm sp3 at 83 bpm with normal intervals, normal QRS, nonspecific intraventricular block and nonspecific diffuse ST/T changes without evidence of acute ischemia. sp3 14:54 14:19 sp3 bd
--- NOTE | 2024-07-26 15:11 | P.HP ---
Certification for Inpatient Patient admitted to: Observation With expected LOS: <2 Midnights Patient will require the following post-hospital care: None Practitioner: I am a practitioner with admitting privileges, knowledge of patient current condition, hospital course, and medical plan of care. Services: Services provided to patient in accordance with Admission requirements found in Title 42 Section 412.3 of the Code of Federal Regulations Patient History Date of Service: 07/26/24 Reason for admission: CHF exacerbation History of Present Illness: 28-year-old male with history of chronic systolic congestive heart failure, rwt-prkbkkz-mcwcptcpo diabetes, hypertension presents to the emergency department with chief complaint of dyspnea on exertion, orthopnea. He reports he has not been on his medications for the last 3 months or so for financial reasons. He was evaluated in the emergency department his BNP was elevated at 6999, he has trace edema of the lower extremities. ED provider wishes to admit patient under observation for CHF exacerbation. Allergies No Known Allergies Allergy (Verified 10/13/22 20:48) Home Medications: Furosemide [Lasix] 20 mg PO DAILY 10/13/22 Metoprolol Tartrate 25 mg PO BID 10/13/22 Potassium Oral Tab [Klor-Con 10 mEq Tab*] 10 meq PO BID 10/13/22 Aspirin Chewable [Aspirin Chewable*] 81 mg PO DAILY #30 tab.chew 10/20/22 Furosemide [Lasix*] 40 mg PO DAILY #30 tab 10/20/22 Sacubitril/Valsartan [Entresto 24 mg-26 mg Tablet] 1 tab PO BID #60 tab 10/20/22 - Past Medical/Surgical History Diabetic: No -: CHF-systolic EF 10 to 15% -: HTN -: Obesity -: Depression -: Tqc-crpofhr-ayfhhibwh diabetes - Family History Father -: Heart disease, Hypertension, Other (see notes) Notes: dad has defibrillator - Social History Alcohol use: No CD- Drugs: No Caffeine use: No Place of Residence: Home Review of Systems 10-point ROS is otherwise unremarkable Respiratory: Shortness of Breath, SOB with Excertion Cardiovascular: Orthopnea Physical Examination - Physical Exam General: Alert, In no apparent distress, Oriented x3 HEENT: Atraumatic, PERRLA, Mucous membr. moist/pink, Sclerae nonicteric Neck: Supple, 2+ carotid pulse no bruit, No LAD, Without JVD or thyroid abnormality Respiratory: Clear to auscultation bilaterally, Normal air movement Cardiovascular: Regular rate/rhythm, Normal S1 S2, Edema (1+ pitting edema bilateral lower extremity) Gastrointestinal: Normal bowel sounds, No tenderness Musculoskeletal: No tenderness Integumentary: No rashes Neurological: Normal gait, Normal speech, Normal strength at 5/5 x4 extr, Normal tone, Normal affect - Studies Laboratory Data (last 24 hrs) 07/26/24 07/26/24 13:19 13:19 WBC 8.50 Hgb 13.1 L Hct 39.4 L Plt Count 241 Sodium 137 Potassium 3.4 L BUN 11 Creatinine 1.01 Glucose 240 H Magnesium 2.1 Total Bilirubin 1.3 H AST 15 ALT 26 Alkaline Phosphatase 89 Microbiology Data (last 24 hrs): 07/26/24 13:28 Nasopharnyx Influenza Type A Antigen Screen - Final 07/26/24 13:28 Nasopharnyx Influenza Type B Antigen Screen - Final Assessment and Plan - Plan Assessment: Acute on chronic systolic congestive heart failure Medical noncompliance Diabetes mellitus type 3smc-vzqahmo-nhqenthaf Hypertension Plan: Acute on chronic systolic congestive heart failure Medical noncompliance Reports he has been out of his medicine for the last few months for financial reasons Was previously taking digoxin, carvedilol, furosemide versus torsemide, Entresto Begin diuresis with IV Lasix, given a dose in the ED Blood pressure currently well-controlled without medications, continue to monitor Was previously on Entresto, now he reports he is uninsured and would likely be unable to afford it Monitor blood pressure, volume status overnight to determine need for meds at discharge Diabetes mellitus type 0opp-sksvpze-urjlrlaxn ACHS Accu-Chek, sliding scale insulin Hypertension BP well-controlled at this time Resume home medications if blood pressure is elevated DVT PPX: Lovenox Code status: Full Discharge Plan: Home Plan to discharge in: 24 Hours - Advance Directives Does patient have a Living Will: No Does patient have a Durable POA for Healthcare: No - Code Status/Comfort Care Code Status Assessed: Yes (Full code) Critical Care: No Time Spent Managing Pts Care (In Minutes): 61
--- NOTE | 2024-07-26 16:02 | RAD REPORT ---
EXAMINATION: ONE VIEW CHEST XR CLINICAL INDICATION: Male, 28 years old.,DYSPNEA TECHNIQUE: Frontal chest projection is submitted. Examination is limited by patient positioning and t echnique. COMPARISON: 10/19/2023 FINDINGS: The lungs are well inflated. Patchy and reticular perihilar opacities. Blunting of the costophrenic a ngles, which may indicate pleural thickening or small effusions. No pneumothorax. The heart is upper limit of normal in size. Mediastinal contours are unremarkable. IMPRESSION: Findings suggestive of pulmonary edema or fluid overload.
[2024-07-26 16:35] VITALS: O2SAT 100
[2024-07-26] MEDS ORDERED: ONDANSETRON 4 MG/2 ML VIAL IV PRN (17:06)
[2024-07-26] MEDS: FUROSEMIDE 40 MG/4 ML VIAL IV SCH (17:06)
[2024-07-26 17:19] VITALS: BP 128/72; TEMP 98.5
--- NOTE | 2024-07-26 17:47 | P.DS ---
Admission Date: 07/26/24 Discharge Date: 07/26/24 Disposition: AMA-LEFT AGAINST MEDICAL ADVIC Discharge Condition: FAIR Reason for Admission: CHF exacerbation Brief History of Present Illness: 28-year-old male with history of chronic systolic congestive heart failure, tgn-fpoczqf-kceiecflq diabetes, hypertension presents to the emergency department with chief complaint of dyspnea on exertion, orthopnea. He reports he has not been on his medications for the last 3 months or so for financial reasons. He was evaluated in the emergency department his BNP was elevated at 6999, he has trace edema of the lower extremities. ED provider wishes to admit patient under observation for CHF exacerbation. Hospital Course: Patient was admitted to hospital for CHF exacerbation, shortly after arriving to the floor patient stated that he wants to leave AGAINST MEDICAL ADVICE. He was counseled on the risks of leaving against medical advice including the risk of sudden cardiac . He was sent prescriptions for torsemide which was his home medication previously and low-dose of oral potassium daily. It was expressed to patient that he needs to follow-up with his scale manager and get back on his appropriate medications. Vital Signs/Physical Exam: Temp Pulse Resp BP Pulse Ox 98.5 F 81 12 128/72 96 07/26/24 17:00 07/26/24 17:00 07/26/24 17:00 07/26/24 17:00 07/26/24 17:00 Laboratory Data at Discharge: WBC 8.50 thou/uL (4.3-10.9) 07/26/24 13:19 Hgb 13.1 g/dL (13.6-17.9) L 07/26/24 13:19 Hct 39.4 % (39.6-49.0) L 07/26/24 13:19 Plt Count 241 thou/uL (152-406) 07/26/24 13:19 Sodium 137 mEq/L (136-145) 07/26/24 13:19 Potassium 3.4 mEq/L (3.5-5.1) L 07/26/24 13:19 BUN 11 mg/dL (7-18) 07/26/24 13:19 Creatinine 1.01 mg/dL (0.70-1.30) 07/26/24 13:19 Glucose 240 mg/dL (74-106) H 07/26/24 13:19 Magnesium 2.1 mg/dL (1.6-2.4) 07/26/24 13:19 Total Bilirubin 1.3 mg/dL (0.2-1.0) H 07/26/24 13:19 AST 15 U/L (15-37) 07/26/24 13:19 ALT 26 U/L (16-61) 07/26/24 13:19 Alkaline Phosphatase 89 U/L (45-117) 07/26/24 13:19 Home Medications: Furosemide [Lasix] 20 mg PO DAILY 10/13/22 Metoprolol Tartrate 25 mg PO BID 10/13/22 Potassium Oral Tab [Klor-Con 10 mEq Tab*] 10 meq PO BID 10/13/22 Aspirin Chewable [Aspirin Chewable*] 81 mg PO DAILY #30 tab.chew 10/20/22 Furosemide [Lasix*] 40 mg PO DAILY #30 tab 10/20/22 Sacubitril/Valsartan [Entresto 24 mg-26 mg Tablet] 1 tab PO BID #60 tab 10/20/22 Potassium Chloride 10 meq PO DAILY #30 cap 07/26/24 Torsemide [Demadex*] 20 mg PO DAILY #30 tab 07/26/24 New Medications: Torsemide [Demadex*] 20 mg PO DAILY #30 tab Potassium Chloride 10 meq PO DAILY #30 cap Followup: NONE,NONE [Primary Care Provider] - 1 Week
[2024-07-27] MEDS ORDERED: ENOXAPARIN 40 MG/0.4 ML SQ SCH (09:00)
--- NOTE | 2024-07-27 14:50 | EKG ---
Test Date: 2024-07-26 Test Time: 13:30:11 Rubber Down: CUAUHTEMOC MEASUREMENT RESULTS: Intervals: Rate: 83 SD: 162 QRSD: 102 QT: 470 QTc: 552 [place]: P: 26 SD: 162 QRS: 1 T: 75 INTERPRETIVE STATEMENTS: Normal sinus rhythm Left ventricular hypertrophy Nonspecific ST and T wave abnormality Prolonged QT Abnormal ECG Compared to ECG 10/14/2023 00:48:55 Left ventricular hypertrophy now present Sinus tachycardia no longer present Possible ischemia no longer present ST (T wave) deviation still present Electronically Signed On 07-27-24 14:46:22 CDT by Romulo Coon
== END 2024-07-26 17:45 | disposition left against medical advice (07) ==
LOC: ER 12:22 → ERHOLD 14:38 → 2ND 15:55
PROVIDERS: ADMIT Internal Medicine; ATTEND Internal Medicine
DX: I50.23 Acute on chronic systolic (congestive) heart failure (principal); R60.1 Generalized edema; E11.9 Type 2 diabetes mellitus without complications; I10 Essential (primary) hypertension; Z91.141 Patient's other noncompliance with medication regimen due to financial hardship; Z53.29 Procedure and treatment not carried out because of patient's decision for other reasons; Z11.52 Encounter for screening for COVID-19
CPT/HCPCS: 36415; 71045; 80048; 80076; 82947; 83735; 83880; 84484; 85025; 87804; 87811; 93005; G0378; J1940